=== PATIENT | female | born 1955 | race Caucasian/White ===

== ENCOUNTER → 2016-07-06 | Outpatient (CLI) | payer MEDICARE ==
[2016-07-06 17:40] LABS: ALBUMIN 3.9 g/dL (3.5-5.0); BILIRUBIN,TOTAL 0.4 mg/dL (0.2-1.3); URIC ACID 4.3 mg/dL (2.5-7.5)
== END ==
LOC: OD 16:01
PROVIDERS: ATTEND Nurse Practitioner Family
DX: B18.2 Chronic viral hepatitis C (principal); E11.9 Type 2 diabetes mellitus without complications
CPT/HCPCS: 36415; 80074; 80076; 83036; 84550; 85652

== ENCOUNTER → 2017-09-28 | Outpatient (CLI) | payer MEDICARE ==
--- NOTE | 2017-09-28 18:50 | EKG REPORT ---
SEVERITY:- NORMAL ECG - SINUS RHYTHM : Confirmed by: Richard Palacios MD 28-Sep-2017 18:50:07
== END ==
LOC: OD 16:49
PROVIDERS: ATTEND Physician Assistant
DX: G89.4 Chronic pain syndrome (principal); Z79.891 Long term (current) use of opiate analgesic
CPT/HCPCS: 93005; 36415; 93010; G0480; 80358

== ENCOUNTER 2017-11-04 21:12 | Emergency (ER) | payer MEDICARE ==
--- NOTE | 2017-11-04 21:50 | RADIOLOGY REPORT (SQ) ---
EXAM DESCRIPTION: CHEST 2 VIEWS COMPLETED DATE/TIME: 11/04/2017 9:38 pm REASON FOR STUDY: fall, rib pain COMPARISON: None. EXAM PARAMETERS: NUMBER OF VIEWS: two views TECHNIQUE: Digital Frontal and Lateral radiographic views of the chest acquired. RADIATION DOSE: NA LIMITATIONS: none FINDINGS: LUNGS AND PLEURA: Left lower lobe density. Probable left pleural effusion. Right lung re latively clear. Prominent interstitial markings. No pneumothorax. MEDIASTINUM AND HILAR STRUCTURES: No masses or contour abnormalities. HEART AND VASCULAR STRUCTURES: Cardiomegaly. BONES: Old left rib fractures. No definite acute findings. HARDWARE: Hardware in the left humerus. OTHER: No other significant finding. IMPRESSION: 1. LEFT LOWER LOBE DENSITY WHICH MAY BE DUE TO ATELECTASIS OR INFILTRATE. PROBABLE LEFT PLEURAL EFFU NAREN. 2. CARDIOMEGALY. PROMINENT INTERSTITIAL MARKINGS PROBABLY DUE TO CHRONIC SCARRING ALTHOUGH THERE MAY BE A COMPONENT OF MILD INTERSTITIAL EDEMA. 3. OLD LEFT RIB FRACTURES. NO DEFINITE ACUTE FINDINGS. TECHNICAL DOCUMENTATION: JOB ID: [id number] [employer]- All Rights Reserved Reading location - IP/workstation name: [email or web address]
[2017-11-04] MEDS ORDERED: LIDOCAINE 5% (700 MG) TRANSDERMAL ADH..PATCH TP ONE (22:30)
--- NOTE | 2017-11-04 22:33 | ER Document Report ---
ED General - General Chief Complaint: Rib Pain Stated Complaint: RIB PAIN Time Seen by Provider: 11/04/17 21:24 Notes: Patient is a 62-year-old female with a past medical history of ulcerative colitis as well as Sjogren's syndrome who presents with left lower rib pain as well as diffuse muscle aches. The patient reports that she had a fall 2012 days ago landing on her left ribs. She states that since that time she has had a throbbing, aching, constant pain to the area that have been overall tolerable until today. She states that she slept in a recliner all night and she when she woke up she was extremely stiff and sore everywhere but had much worse pain in her left lower rib space than she had previously. She notes that as a severe , stabbing pain to the affected area worsened by movement or coughing. She has not seen her general doctor regarding today's concerns. She states that she decided to come to the emergency department today to see if she had fractured her ribs from her previous fall. She states that this time she feels overall much better than she did earlier today. She denies any shortness of breath. She does take methadone for chronic pain. TRAVEL OUTSIDE OF THE [place] IN LAST 30 DAYS: No - Related Data Allergies/Adverse Reactions: No Known Allergies Allergy (Unverified 11/04/17 21:33) Past Medical History - General Information source: Patient - Social History Smoking Status: Former Smoker Chew tobacco use (# tins/day): No Frequency of alcohol use: Rare Drug Abuse: None Lives with: Alone Family History: Reviewed & Not Pertinent Patient has suicidal ideation: No Patient has homicidal ideation: No Endocrine Medical History: Reports: Hx Diabetes Mellitus Type 2 Renal/ Medical History: Denies: Hx Peritoneal Dialysis Past Surgical History: Reports: Hx Orthopedic Surgery Review of Systems - Review of Systems Notes: Constitutional: Negative for fever. HENT: Negative for sore throat. Eyes: Negative for visual changes. Cardiovascular: Negative for chest pain. Respiratory: Negative for shortness of breath. Gastrointestinal: Negative for abdominal pain, vomiting or diarrhea. Genitourinary: Negative for dysuria. Musculoskeletal: Positive for left lower rib pain Skin: Negative for rash. Neurological: Negative for headaches, weakness or numbness. 10 point ROS negative except as marked above and in HPI. Physical Exam - Vital signs Vitals: Temp Pulse Resp BP Pulse Ox 98.8 F 99 16 122/57 L 95 11/04/17 21:25 11/04/17 21:25 11/04/17 21:25 11/04/17 21:25 11/04/17 21:25 Interpretation: Normal Notes: PHYSICAL EXAMINATION: GENERAL: Well-appearing, well-nourished and in no acute distress. HEAD: Atraumatic, normocephalic. EYES: Pupils equal round and reactive to light, extraocular movements intact, sclera anicteric, conjunctiva are normal. ENT: nares patent, oropharynx clear without exudates. Moist mucous membranes. NECK: Normal range of motion, supple without lymphadenopathy LUNGS: Breath sounds clear to auscultation bilaterally and equal. No wheezes rales or rhonchi. HEART: Regular rate and rhythm without murmurs Chest wall: Pain on palpation of the left lower rib spaces ABDOMEN: Soft, nontender, normoactive bowel sounds. No guarding, no rebound. No masses appreciated. EXTREMITIES: Normal range of motion, no pitting or edema. No cyanosis. NEUROLOGICAL: No focal neurological deficits. Moves all extremities spontaneously and on command. PSYCH: Normal mood, normal affect. SKIN: Warm, Dry, normal turgor, ecchymosis over the left lower rib space Course - Re-evaluation Re-evalutation: 11/04/17 22:30 Patient presents after having a fall 12 days ago landing onto her left ribs likely sustaining multiple acute rib fractures at that time point but did not seek care. Patient states that she slept in a chair last night and woke up extremely stiff and sore everywhere joint which is what prompted her to come to the hospital today. On examination patient does have some bruising over the left lower ribs and focal tenderness to the affected area. These are noticed on x-ray as well as likely atelectatic changes to the affected area due to hypoventilation in the setting of rib fractures. The patient denies any additional acute concerns or complaints. The remainder examination is overall unremarkable. She is very pleasant, smiling, conversing with me at length. She is already on chronic pain medication from a pain clinic and is not asking for any additional pain control, wanted to confirm if she did have rib fractures the affected area. Chest x-ray does note chronic scarring changes, patient is not hypoxic, tachypneic, tachycardic. Given her borderline oxygen saturation further workup and hospitalization was discussed with the patient and she did decline stating she feels fine to manage this at home as she has been doing so for the past 2 weeks. She has been given incentive spirometry and instructed to use it at regular interval to try to prevent any progression of the atelectatic changes in her left lower lobe. At this time will discharge with return precautions and follow-up recommendations. Verbal discharge instructions given a the bedside and opportunity for questions given. Medication warnings reviewed. Patient is in agreement with this plan and has verbalized understanding of return precautions and the need for primary care follow-up in the next 24-72 hours. - Vital Signs Vital signs: Temp Pulse Resp BP Pulse Ox 98.0 F 90 18 106/56 L 92 11/04/17 23:40 11/04/17 23:40 11/04/17 22:37 11/04/17 23:40 11/04/17 23:40 - Diagnostic Test Radiology reviewed: Image reviewed, Reports reviewed Radiology results interpreted by me: 11/05/17 03:39 Chest x-ray: Atelectatic changes at the left lung base. Apparently old rib fractures to the left lower 2 ribs Discharge - Discharge Clinical Impression: Atelectasis Fall Qualifiers: Encounter type: initial encounter Qualified Code(s): W19.XXXA - Unspecified fall, initial encounter Left rib fracture Qualifiers: Encounter type: initial encounter Rib fracture type: multiple ribs Fracture type: closed Qualified Code(s): S22.42XA - Multiple fractures of ribs, left side , initial encounter for closed fracture Condition: Good Disposition: HOME, SELF-CARE Additional Instructions: Your chest wall pain is due to several rib fractures appear left-sided ribs. This pain can last for up to 6 weeks. It is very important that you continue to take purposeful deep breaths. For your pain: Continue to take ibuprofen 600 mg every 6 hours or Tylenol 1000 mg every 6 hours. Apply local lidocaine to the area per bottle instructions. There is a product sold [id number] called "Aspercreme with lidocaine" that you can use for this purpose. Please be sure to continue to take deep breaths using the incentive spirometer with which you were sent home to prevent acquiring a pneumonia. Please follow-up with her primary care doctor in the next 2-3 days. Return to the emergency department immediately if you develop worsening shortness of breath, increased pain, begin coughing blood, pass out, or have any other symptoms that are worrisome to you. Referrals: FRANCOIS DAVILA PA-C [Primary Care Provider] - Follow up in 3-5 days
[2017-11-05 00:20] VITALS: BP 106/56
== END 2017-11-05 00:29 | disposition home or self-care (01) ==
LOC: ER 21:12
DX: J98.11 Atelectasis (principal); S22.42XA Multiple fractures of ribs, left side, initial encounter for closed fracture; R07.9 Chest pain, unspecified; M79.1 Myalgia; W19.XXXA Unspecified fall, initial encounter; E11.9 Type 2 diabetes mellitus without complications
CPT/HCPCS: 71046; 99284

== ENCOUNTER 2019-01-04 01:24 | Emergency (ER) | payer OTHER, MEDICARE ==
[2019-01-04] MEDS ORDERED: HYDROMORPHONE HCL 2 MG TABLET PO ONE ×2 (04:06→07:32)
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
[2019-01-04] MEDS ORDERED: METHOCARBAMOL 500 MG TABLET PO ONE (07:32)
[2019-01-04 11:06] VITALS: BP 160/62
== END 2019-01-04 10:50 | disposition home or self-care (01) ==
LOC: ER 01:24
DX: S22.070A Wedge compression fracture of T9-T10 vertebra, initial encounter for closed fracture (principal); S32.019A Unspecified fracture of first lumbar vertebra, initial encounter for closed fracture; R51 Headache; M54.2 Cervicalgia; V44.5XXA Car driver injured in collision with heavy transport vehicle or bus in traffic accident, initial encounter; E11.9 Type 2 diabetes mellitus without complications; G89.29 Other chronic pain; Z79.891 Long term (current) use of opiate analgesic; Z79.899 Other long term (current) drug therapy
CPT/HCPCS: 70450; 72125; 72128; 72131; 82962; 99284

== ENCOUNTER 2019-01-04 11:25 | Inpatient (IN) | payer OTHER, MEDICARE ==
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
[2019-01-04] MEDS ORDERED: ACETAMINOPHEN 325 MG TABLET PO PRN (15:45)
[2019-01-04] MEDS ORDERED: IPRATROPIUM/ALBUTEROL 0.5-2.5 MG/3 ML AMPUL NEB PRN (15:45)
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
[2019-01-04] MEDS: DOCUSATE SODIUM 100 MG CAPSULE PO SCH (17:44)
[2019-01-04 18:15] LABS: URINE BARBITURATES SCREEN NEGATIVE; URINE BENZODIAZEPINES SCREEN NEGATIVE; URINE COCAINE SCREEN NEGATIVE; URINE MARIJUANA (THC) SCREEN NEGATIVE; URINE PHENCYCLIDINE SCREEN NEGATIVE
[2019-01-04 18:32] LABS: URINE AMPHETAMINES SCREEN UNCONFIRMED POSITIVE
[2019-01-04 18:33] LABS: URINE METHADONE SCREEN UNCONFIRMED POSITIVE
[2019-01-04 18:41] LABS: ABSOLUTE BASOPHILS # (AUTO) 0.1 10^3/uL (0.0-0.2); ABSOLUTE EOSINOPHILS # (AUTO) 0.1 10^3/uL (0.0-0.6); ABSOLUTE LYMPHOCYTES (AUTO) 1.8 10^3/uL (0.5-4.7); ABSOLUTE MONOCYTES (AUTO) 0.5 10^3/uL (0.1-1.4); BASOPHILS % (AUTO) 0.8 % (0-2); EOSINOPHILS % (AUTO) 1.5 % (0-6); HEMATOCRIT 38.5 % (36.0-47.0); HEMOGLOBIN 12.7 g/dL (12.0-15.5); LYMPHOCYTES % (AUTO) 24.2 % (13-45); MEAN CORPUSCULAR HEMOGLOBIN 26.3 pg (27.0-33.4); MEAN CORPUSCULAR HGB CONC 32.9 g/dL (32.0-36.0); MEAN CORPUSCULAR VOLUME 80 fl (80-97); PLATELET COUNT 144 10^3/uL (150-450); RED BLOOD COUNT 4.82 10^6/uL (3.72-5.28); RED CELL DISTRIBUTION WIDTH 16.8 % (11.5-14.0); SEGMENTED NEUTROPHILS % (AUTO) 66.5 % (42-78); TOTAL CELLS COUNTED % (AUTO) 100 %; WHITE BLOOD COUNT 7.5 10^3/uL (4.0-10.5)
[2019-01-04 19:06] LABS: ALKALINE PHOSPHATASE 140 U/L (38-126); ANION GAP 9 (5-19); ASPARTATE AMINO TRANSFERASE 97 U/L (14-36); BILIRUBIN,DIRECT 0.5 mg/dL (0.0-0.4); BILIRUBIN,TOTAL 1.2 mg/dL (0.2-1.3); BLOOD UREA NITROGEN 15 mg/dL (7-20); C-REACTIVE PROTEIN 37.7 mg/L (<10.0); CALCIUM 9.1 mg/dL (8.4-10.2); CARBON DIOXIDE 30 mmol/L (22-30); CHLORIDE 97 mmol/L (98-107); CREATINE KINASE 24 U/L (30-135); GLUCOSE 102 mg/dL (75-110); POTASSIUM 3.6 mmol/L (3.6-5.0); TOTAL PROTEIN 7.5 g/dL (6.3-8.2)
[2019-01-04 19:20] LABS: ERYTHROCYTE SEDIMENTATION RATE 52 mm/hr (0-30)
[2019-01-04] MEDS: ONDANSETRON HCL INJ/PF 4 MG/2 ML SDV IV PRN (20:09)
[2019-01-04] MEDS: METHADONE HCL 10 MG TABLET PO SCH (21:12)
[2019-01-04] MEDS: FAMOTIDINE 20 MG TABLET PO SCH (21:12)
[2019-01-04] MEDS: GABAPENTIN 400 MG CAPSULE PO SCH (21:12)
[2019-01-04] MEDS: HEPARIN SOD (PORCINE) 5,000 UNIT/ML 1 ML VIAL SUBCUT SCH (21:13)
[2019-01-04] MEDS: NADOLOL 40 MG TABLET PO SCH (21:13)
[2019-01-04] MEDS ORDERED: BACLOFEN 10 MG TABLET PO SCH (22:00)
[2019-01-05] MEDS: METHADONE HCL 10 MG TABLET PO SCH ×5 (01:45→23:14)
[2019-01-05] MEDS: OXYCODONE HCL IR 5 MG TABLET PO PRN (01:50)
[2019-01-05 05:08] LABS: ABSOLUTE BASOPHILS # (AUTO) 0.1 10^3/uL (0.0-0.2); ABSOLUTE EOSINOPHILS # (AUTO) 0.2 10^3/uL (0.0-0.6); ABSOLUTE LYMPHOCYTES (AUTO) 1.4 10^3/uL (0.5-4.7); ABSOLUTE MONOCYTES (AUTO) 0.4 10^3/uL (0.1-1.4); ABSOLUTE NEUT (AUTO) 4.8 10^3/uL (1.7-8.2); BASOPHILS % (AUTO) 0.8 % (0-2); EOSINOPHILS % (AUTO) 2.5 % (0-6); HEMATOCRIT 40.3 % (36.0-47.0); HEMOGLOBIN 13.2 g/dL (12.0-15.5); LYMPHOCYTES % (AUTO) 20.8 % (13-45); MEAN CORPUSCULAR HEMOGLOBIN 26.1 pg (27.0-33.4); MEAN CORPUSCULAR HGB CONC 32.8 g/dL (32.0-36.0); MEAN CORPUSCULAR VOLUME 80 fl (80-97); MONOCYTES % (AUTO) 5.9 % (3-13); PLATELET COUNT 143 10^3/uL (150-450); RED BLOOD COUNT 5.06 10^6/uL (3.72-5.28); TOTAL CELLS COUNTED % (AUTO) 100 %; WHITE BLOOD COUNT 6.8 10^3/uL (4.0-10.5)
[2019-01-05 05:23] LABS: ANION GAP 12 (5-19); BLOOD UREA NITROGEN 16 mg/dL (7-20); CALCIUM 8.9 mg/dL (8.4-10.2); CARBON DIOXIDE 29 mmol/L (22-30); CHLORIDE 96 mmol/L (98-107); GLUCOSE 95 mg/dL (75-110); POTASSIUM 3.9 mmol/L (3.6-5.0)
[2019-01-05] MEDS: HEPARIN SOD (PORCINE) 5,000 UNIT/ML 1 ML VIAL SUBCUT SCH ×3 (06:01→22:26)
[2019-01-05] MEDS ORDERED: HYDRALAZINE HCL INJ/PF 20 MG/1 ML SDV IV PRN (07:34)
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
[2019-01-05] MEDS: HYDROMORPHONE HCL INJ/PF 2 MG/ML AMPULE IV PRN (09:14)
[2019-01-05] MEDS: ONDANSETRON HCL INJ/PF 4 MG/2 ML SDV IV PRN (10:00)
[2019-01-05] MEDS: PREDNISONE 5 MG TABLET PO SCH ×3 (10:06→17:44)
[2019-01-05] MEDS: FAMOTIDINE 20 MG TABLET PO SCH ×2 (10:06→23:15)
[2019-01-05] MEDS: DOCUSATE SODIUM 100 MG CAPSULE PO SCH ×2 (10:06→18:03)
[2019-01-05] MEDS: NADOLOL 40 MG TABLET PO SCH ×2 (10:06→23:14)
[2019-01-05] MEDS: ESCITALOPRAM OXALATE 10 MG TABLET PO SCH (10:06)
[2019-01-05] MEDS: BACLOFEN 20 MG TABLET PO SCH ×2 (10:06→23:14)
[2019-01-05] MEDS ORDERED: LORAZEPAM INJ 2 MG/1 ML VIAL IV PRN (10:15)
[2019-01-05] MEDS: GABAPENTIN 400 MG CAPSULE PO SCH (23:15)
[2019-01-06] MEDS: HEPARIN SOD (PORCINE) 5,000 UNIT/ML 1 ML VIAL SUBCUT SCH ×3 (05:26→21:11)
[2019-01-06 05:28] LABS: INTERNATIONAL RATION (INR) 1.01; PROTHROMBIN TIME 13.3 SEC (11.4-15.4)
[2019-01-06 05:29] LABS: PARTIAL THROMBOPLASTIN TIME 39.6 SEC (23.5-35.8)
[2019-01-06] MEDS: METHADONE HCL 10 MG TABLET PO SCH ×4 (05:35→23:04)
[2019-01-06] MEDS: OXYCODONE HCL IR 5 MG TABLET PO PRN ×2 (05:37→23:04)
[2019-01-06 06:27] LABS: APPEARANCE,URINE SLIGHTLY-CLOUDY; BILIRUBIN,URINE NEGATIVE (NEGATIVE); COLOR,URINE AMBER; GLUCOSE, URINE NEGATIVE (NEGATIVE); KETONES,URINE 20 mg/dL (NEGATIVE); LEUKOCYTE ESTERASE,URINE NEGATIVE (NEGATIVE); NITRITE,URINE NEGATIVE (NEGATIVE); PROTEIN,URINE 30 mg/dL (NEGATIVE)
[2019-01-06] MEDS: HYDROMORPHONE HCL INJ/PF 2 MG/ML AMPULE IV PRN ×2 (06:43→21:13)
[2019-01-06] MEDS: FAMOTIDINE 20 MG TABLET PO SCH ×2 (09:43→21:12)
[2019-01-06] MEDS: PREDNISONE 5 MG TABLET PO SCH ×3 (09:43→17:39)
[2019-01-06] MEDS: ESCITALOPRAM OXALATE 10 MG TABLET PO SCH (09:43)
[2019-01-06] MEDS: BACLOFEN 20 MG TABLET PO SCH ×2 (09:43→21:13)
[2019-01-06] MEDS: NADOLOL 40 MG TABLET PO SCH ×2 (09:44→21:13)
[2019-01-06] MEDS: DOCUSATE SODIUM 100 MG CAPSULE PO SCH ×2 (09:44→17:35)
[2019-01-06] MEDS ORDERED: LORAZEPAM INJ 2 MG/1 ML VIAL IV PRN (10:28)
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
--- NOTE | 2019-01-06 16:59 | RADIOLOGY REPORT (SQ) ---
EXAM DESCRIPTION: MRI LUMBAR SPINE WITHOUT COMPLETED DATE/TIME: 01/06/2019 4:42 pm REASON FOR STUDY: verify compression fracture S22.080A WEDGE COMPRESSION FRACTURE OF T11-T12 VERTEB RA, INI COMPARISON: None. TECHNIQUE: Sagittal and Axial imaging includes T1, T2, STIR and gradient echo sequences. Coronal T2/ HASTE imaging. LIMITATIONS: None. FINDINGS: VISUALIZED UPPER ABDOMEN: Limited evaluation. No acute or suspicious findings suggested. SEGMENTATION: No transitional anatomy. The lowest well-developed disc space is labeled L5-S1. ALIGNMENT: Anatomic. VERTEBRAE: Superior endplate compression changes seen at T12 and L1 that are relatively acute. Older mild compression changes seen at T10 and T11. BONE MARROW: There is bone marrow edema in the superior aspect of T12 and L1 vertebral bodies. DISC SIGNAL: There is evidence of mild disc desiccation from L2-L5. POSTERIOR ELEMENTS: Generally intact. No pars defect evident. HARDWARE: None in the spine. CORD AND CONUS: Normal in size and signal intensity. Conus at the L1 level. SOFT TISSUES: No aortic aneurysm seen. No bulky retroperitoneal adenopathy or mass. No paraspinal mas s or fluid. L1-L2: No significant spinal stenosis or exit foraminal stenosis. L2-L3: No significant spinal stenosis or exit foraminal stenosis. L3-L4: No significant spinal stenosis or exit foraminal stenosis. L4-L5: No significant spinal stenosis or exit foraminal stenosis. L5-S1: No significant spinal stenosis or exit foraminal stenosis. LOWER THORACIC: Incompletely imaged. No stenosis seen. SACRUM: Visualized upper sacrum intact. OTHER: No other significant findings. IMPRESSION: Acute/ subacute superior endplate compression changes at T12 and L1. Older compression changes at T10 and T11 TECHNICAL DOCUMENTATION: JOB ID: [id number] [employer]- All Rights Reserved Reading location - IP/workstation name: [email or web address]
[2019-01-06] MEDS: GABAPENTIN 400 MG CAPSULE PO SCH (21:12)
[2019-01-07] MEDS: HEPARIN SOD (PORCINE) 5,000 UNIT/ML 1 ML VIAL SUBCUT SCH ×3 (05:35→21:35)
[2019-01-07] MEDS: METHADONE HCL 10 MG TABLET PO SCH ×4 (05:37→23:47)
[2019-01-07] MEDS ORDERED: DEXTROSE 40% GEL 15 GM TUBE X 2 PO PRN (09:00)
[2019-01-07] MEDS ORDERED: DEXTROSE 40% GEL 15 GM TUBE PO PRN (09:00)
[2019-01-07] MEDS ORDERED: DEXTROSE 50%-WATER SYRINGE 12.5 GM/25 ML DOSE IV PRN (09:00)
[2019-01-07] MEDS ORDERED: GLUCAGON,HUMAN RECOMB 1 MG INJ IM PRN (09:00)
[2019-01-07] MEDS ORDERED: DEXTROSE 50%-WATER SYRINGE 25 GM/50 ML DOSE IV PRN (09:00)
[2019-01-07] MEDS: FAMOTIDINE 20 MG TABLET PO SCH ×2 (09:19→21:40)
[2019-01-07] MEDS: ESCITALOPRAM OXALATE 10 MG TABLET PO SCH (09:19)
[2019-01-07] MEDS: BACLOFEN 20 MG TABLET PO SCH ×2 (09:19→21:40)
[2019-01-07] MEDS: PREDNISONE 5 MG TABLET PO SCH ×3 (09:19→17:23)
[2019-01-07] MEDS: DOCUSATE SODIUM 100 MG CAPSULE PO SCH ×2 (09:21→17:23)
[2019-01-07] MEDS: NADOLOL 40 MG TABLET PO SCH ×2 (09:30→21:40)
[2019-01-07] MEDS: HYDROMORPHONE HCL INJ/PF 2 MG/ML AMPULE IV PRN ×2 (09:30→23:48)
[2019-01-07] MEDS ORDERED: CEFAZOLIN INJ 1 GM VIAL ONE (11:01)
[2019-01-07] MEDS ORDERED: FENTANYL CITRATE INJ/PF 100 MCG/2 ML AMPUL ONE (11:08)
[2019-01-07] MEDS ORDERED: MIDAZOLAM 2 MG/2 ML INJ ONE (11:08)
[2019-01-07] MEDS ORDERED: PROPOFOL INJ 200 MG/20 ML VIAL IV ONE (11:09)
[2019-01-07] MEDS ORDERED: LIDOCAINE 2% INJ (20 MG/ML) 20 ML MDV ONE (11:09)
[2019-01-07] MEDS ORDERED: LIDOCAINE 1% INJ-PF (10 MG/ML) 30 ML SDV ONE ×2 (11:14→12:19)
[2019-01-07] MEDS ORDERED: OXYCODONE-ACETAMINOPHEN 5-325 MG TABLET PO PRN ×2 (12:07)
[2019-01-07] MEDS ORDERED: MORPHINE SULFATE 10 MG/ML INJ IV PRN (12:07)
[2019-01-07] MEDS ORDERED: FENTANYL CITRATE INJ/PF 100 MCG/2 ML AMPUL IV PRN ×3 (12:07)
[2019-01-07] MEDS ORDERED: PROMETHAZINE HCL INJ 25 MG/1 ML VIAL IV PRN (12:07)
[2019-01-07] MEDS ORDERED: DIPHENHYDRAMINE HCL 50 MG/ML VIAL IV PRN (12:07)
[2019-01-07] MEDS ORDERED: MEPERIDINE HCL/PF INJ 25 MG/1 ML DISP.SYRIN IV PRN (12:07)
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
[2019-01-07] MEDS: INSULIN REG, HUMAN 100 UNIT/ML 3 ML VIAL (PYX) SUBCUT SCH ×3 (13:51→21:37)
--- NOTE | 2019-01-07 14:03 | RADIOLOGY REPORT (SQ) ---
EXAM DESCRIPTION: L SPINE 2 VIEWS COMPLETED DATE/TIME: 01/07/2019 1:51 pm REASON FOR STUDY: KYPHOPLASTY ASST WITH FLUORO IN OR S22.080A WEDGE COMPRESSION FRACTURE OF T11-T12 VERTEBRA, INI COMPARISON: None. FLUOROSCOPY TIME: 3.4 minutes Spot images saved to PACS. TECHNIQUE: Intra-operative images acquired during surgical procedure to evaluate progress. NUMBER OF IMAGES: Greater than 25 LIMITATIONS: None. FINDINGS: Fluoroscopy was provided for intraoperative procedure. Please refer to the operative repo rt for further discussion. IMPRESSION: IMAGE(S) OBTAINED DURING PROCEDURE. COMMENT: Quality ID [id number]: Final reports for procedures using fluoroscopy that document radiation exp osure indices, or exposure time and number of fluorographic images (if radiation exposure indices are not available) Please consult full operative report of the attending physician for description of the procedure. TECHNICAL DOCUMENTATION: JOB ID: [id number] [email or web address]- All Rights Reserved Reading location - IP/workstation name: [email or web address]
--- NOTE | 2019-01-07 14:03 | RADIOLOGY REPORT (SQ) ---
EXAM DESCRIPTION: NO CHG FLUORO COMPLETE DATE/TIME: 01/07/2019 1:51 pm REASON FOR STUDY: KYPHOPLASTY ASST WITH FLUORO IN OR S22.080A WEDGE COMPRESSION FRACTURE OF T11-T12 VERTEBRA, INI FINDINGS: Please see combined report for performance of procedure and radiologic supervision and int erpretation. IMPRESSION: Please see combined report for performance of procedure and radiologic supervision and i nterpretation. Reading location - IP/workstation name: [email or web address]
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
[2019-01-07] MEDS: OXYCODONE HCL IR 5 MG TABLET PO PRN (18:46)
[2019-01-07] MEDS: GABAPENTIN 400 MG CAPSULE PO SCH (21:40)
[2019-01-08] MEDS: OXYCODONE HCL IR 5 MG TABLET PO PRN (02:25)
[2019-01-08] MEDS: METHADONE HCL 10 MG TABLET PO SCH ×4 (06:09→23:00)
[2019-01-08] MEDS: HEPARIN SOD (PORCINE) 5,000 UNIT/ML 1 ML VIAL SUBCUT SCH ×3 (06:10→22:55)
[2019-01-08] MEDS: INSULIN REG, HUMAN 100 UNIT/ML 3 ML VIAL (PYX) SUBCUT SCH ×4 (08:19→22:56)
[2019-01-08] MEDS: HYDROMORPHONE HCL INJ/PF 2 MG/ML AMPULE IV PRN ×2 (08:47→20:18)
[2019-01-08 09:55] LABS: ALBUMIN 3.6 g/dL (3.5-5.0); ALKALINE PHOSPHATASE 94 U/L (38-126); ASPARTATE AMINO TRANSFERASE 24 U/L (14-36); BILIRUBIN,DIRECT 0.2 mg/dL (0.0-0.4); BILIRUBIN,TOTAL 0.4 mg/dL (0.2-1.3); TOTAL PROTEIN 6.9 g/dL (6.3-8.2)
[2019-01-08] MEDS ORDERED: (PENDING PHARMACY ID) (Dextroamphetamine/Amphetamine [Adderall 30 Mg Tablet] 30 MG) PO SCH (10:00)
[2019-01-08] MEDS: DOCUSATE SODIUM 100 MG CAPSULE PO SCH ×2 (10:31→17:44)
[2019-01-08] MEDS: FAMOTIDINE 20 MG TABLET PO SCH ×2 (10:32→23:00)
[2019-01-08] MEDS: BACLOFEN 20 MG TABLET PO SCH ×2 (10:32→23:00)
[2019-01-08] MEDS: PREDNISONE 5 MG TABLET PO SCH ×3 (10:32→17:44)
[2019-01-08] MEDS: ESCITALOPRAM OXALATE 10 MG TABLET PO SCH (10:32)
[2019-01-08] MEDS: NADOLOL 40 MG TABLET PO SCH ×2 (10:32→23:00)
[2019-01-08] MEDS: VALACYCLOVIR HCL 500 MG TABLET PO SCH ×2 (10:32→17:44)
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
[2019-01-08 15:19] LABS: ANION GAP 10 (5-19); BLOOD UREA NITROGEN 30 mg/dL (7-20); CARBON DIOXIDE 31 mmol/L (22-30); CHLORIDE 98 mmol/L (98-107); GLUCOSE 176 mg/dL (75-110); POTASSIUM 4.5 mmol/L (3.6-5.0)
[2019-01-08 15:33] LABS: ABSOLUTE BASOPHILS # (AUTO) 0.1 10^3/uL (0.0-0.2); ABSOLUTE EOSINOPHILS # (AUTO) 0.1 10^3/uL (0.0-0.6); ABSOLUTE LYMPHOCYTES (AUTO) 2.3 10^3/uL (0.5-4.7); ABSOLUTE MONOCYTES (AUTO) 0.6 10^3/uL (0.1-1.4); ABSOLUTE NEUT (AUTO) 4.8 10^3/uL (1.7-8.2); BASOPHILS % (AUTO) 0.8 % (0-2); HEMATOCRIT 35.6 % (36.0-47.0); HEMOGLOBIN 11.5 g/dL (12.0-15.5); LYMPHOCYTES % (AUTO) 29.1 % (13-45); MEAN CORPUSCULAR HEMOGLOBIN 26.2 pg (27.0-33.4); MEAN CORPUSCULAR HGB CONC 32.4 g/dL (32.0-36.0); MEAN CORPUSCULAR VOLUME 81 fl (80-97); MONOCYTES % (AUTO) 7.7 % (3-13); PLATELET COUNT 156 10^3/uL (150-450); RED CELL DISTRIBUTION WIDTH 16.6 % (11.5-14.0); SEGMENTED NEUTROPHILS % (AUTO) 61.4 % (42-78); TOTAL CELLS COUNTED % (AUTO) 100 %; WHITE BLOOD COUNT 7.8 10^3/uL (4.0-10.5)
[2019-01-08] MEDS: GABAPENTIN 400 MG CAPSULE PO SCH (23:00)
[2019-01-09] MEDS: HEPARIN SOD (PORCINE) 5,000 UNIT/ML 1 ML VIAL SUBCUT SCH ×3 (05:56→21:10)
[2019-01-09] MEDS: METHADONE HCL 10 MG TABLET PO SCH ×4 (05:57→23:14)
[2019-01-09] MEDS: HYDROMORPHONE HCL INJ/PF 2 MG/ML AMPULE IV PRN ×2 (08:44→18:09)
[2019-01-09] MEDS: VALACYCLOVIR HCL 500 MG TABLET PO SCH ×2 (09:40→17:57)
[2019-01-09] MEDS: NADOLOL 40 MG TABLET PO SCH ×2 (09:40→21:05)
[2019-01-09] MEDS: FAMOTIDINE 20 MG TABLET PO SCH ×2 (09:41→21:05)
[2019-01-09] MEDS: PREDNISONE 5 MG TABLET PO SCH ×3 (09:41→17:57)
[2019-01-09] MEDS: BACLOFEN 20 MG TABLET PO SCH ×2 (09:41→21:05)
[2019-01-09] MEDS: ESCITALOPRAM OXALATE 10 MG TABLET PO SCH (09:42)
[2019-01-09] MEDS: DOCUSATE SODIUM 100 MG CAPSULE PO SCH ×2 (09:44→17:57)
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
[2019-01-09] MEDS: INSULIN REG, HUMAN 100 UNIT/ML 3 ML VIAL (PYX) SUBCUT SCH ×3 (13:25→21:10)
[2019-01-09] MEDS: GABAPENTIN 400 MG CAPSULE PO SCH (21:04)
[2019-01-09] MEDS: OXYCODONE HCL IR 5 MG TABLET PO PRN (21:08)
[2019-01-10] MEDS: HYDROMORPHONE HCL INJ/PF 2 MG/ML AMPULE IV PRN ×3 (00:08→13:03)
[2019-01-10] MEDS: HEPARIN SOD (PORCINE) 5,000 UNIT/ML 1 ML VIAL SUBCUT SCH ×2 (05:04→13:12)
[2019-01-10] MEDS: METHADONE HCL 10 MG TABLET PO SCH ×2 (05:05→11:39)
[2019-01-10 06:42] LABS: ABSOLUTE BASOPHILS # (AUTO) 0.1 10^3/uL (0.0-0.2); ABSOLUTE EOSINOPHILS # (AUTO) 0.1 10^3/uL (0.0-0.6); ABSOLUTE LYMPHOCYTES (AUTO) 2.9 10^3/uL (0.5-4.7); ABSOLUTE MONOCYTES (AUTO) 0.8 10^3/uL (0.1-1.4); ABSOLUTE NEUT (AUTO) 5.6 10^3/uL (1.7-8.2); BASOPHILS % (AUTO) 0.7 % (0-2); HEMATOCRIT 38.8 % (36.0-47.0); HEMOGLOBIN 12.6 g/dL (12.0-15.5); LYMPHOCYTES % (AUTO) 30.6 % (13-45); MEAN CORPUSCULAR HEMOGLOBIN 26.2 pg (27.0-33.4); MEAN CORPUSCULAR HGB CONC 32.5 g/dL (32.0-36.0); MEAN CORPUSCULAR VOLUME 81 fl (80-97); MONOCYTES % (AUTO) 8.8 % (3-13); PLATELET COUNT 226 10^3/uL (150-450); RED BLOOD COUNT 4.81 10^6/uL (3.72-5.28); RED CELL DISTRIBUTION WIDTH 17.1 % (11.5-14.0); SEGMENTED NEUTROPHILS % (AUTO) 58.9 % (42-78); TOTAL CELLS COUNTED % (AUTO) 100 %; WHITE BLOOD COUNT 9.5 10^3/uL (4.0-10.5)
[2019-01-10 06:54] LABS: ALBUMIN 3.8 g/dL (3.5-5.0); ALKALINE PHOSPHATASE 102 U/L (38-126); ANION GAP 10 (5-19); ASPARTATE AMINO TRANSFERASE 24 U/L (14-36); BILIRUBIN,DIRECT 0.3 mg/dL (0.0-0.4); BILIRUBIN,TOTAL 0.4 mg/dL (0.2-1.3); BLOOD UREA NITROGEN 27 mg/dL (7-20); CALCIUM 9.5 mg/dL (8.4-10.2); CARBON DIOXIDE 28 mmol/L (22-30); CHLORIDE 100 mmol/L (98-107); GLUCOSE 174 mg/dL (75-110); POTASSIUM 4.3 mmol/L (3.6-5.0); TOTAL PROTEIN 7.2 g/dL (6.3-8.2)
[2019-01-10] MEDS: INSULIN REG, HUMAN 100 UNIT/ML 3 ML VIAL (PYX) SUBCUT SCH ×2 (09:46→12:01)
[2019-01-10] MEDS: BACLOFEN 20 MG TABLET PO SCH (09:50)
[2019-01-10] MEDS: NADOLOL 40 MG TABLET PO SCH (09:50)
[2019-01-10] MEDS: DOCUSATE SODIUM 100 MG CAPSULE PO SCH (09:50)
[2019-01-10] MEDS: FAMOTIDINE 20 MG TABLET PO SCH (09:54)
[2019-01-10] MEDS: ESCITALOPRAM OXALATE 10 MG TABLET PO SCH (09:54)
[2019-01-10] MEDS: PREDNISONE 5 MG TABLET PO SCH ×2 (09:54→13:12)
[2019-01-10] MEDS: VALACYCLOVIR HCL 500 MG TABLET PO SCH (09:54)
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
[2019-01-10 13:11] VITALS: BP 133/50
== END 2019-01-10 14:58 | disposition home or self-care (01) | DRG 516 ==
LOC: ER 11:25 → EH 14:44 → INTOOBSV 14:44 → 4S 17:25 → OBSVTOIN 01-07 17:26
PROVIDERS: ADMIT Family Medicine; ATTEND Family Medicine
PROC: 0QU03JZ Supplement Lumbar Vertebra with Synthetic Substitute, Percutaneous Approach (ICD-10-PCS; 2019-01-07)
PROC: 0PS43ZZ Reposition Thoracic Vertebra, Percutaneous Approach (ICD-10-PCS; 2019-01-07)
PROC: 0PU43JZ Supplement Thoracic Vertebra with Synthetic Substitute, Percutaneous Approach (ICD-10-PCS; 2019-01-07)
PROC: 0QS03ZZ Reposition Lumbar Vertebra, Percutaneous Approach (ICD-10-PCS; principal; 2019-01-07 12:30)
DX: S32.010A Wedge compression fracture of first lumbar vertebra, initial encounter for closed fracture (principal); S22.070A Wedge compression fracture of T9-T10 vertebra, initial encounter for closed fracture; M35.00 Sjogren syndrome, unspecified; G89.29 Other chronic pain; E11.9 Type 2 diabetes mellitus without complications; V43.52XA Car driver injured in collision with other type car in traffic accident, initial encounter; F90.9 Attention-deficit hyperactivity disorder, unspecified type; Z87.891 Personal history of nicotine dependence
CPT/HCPCS: 01935; 36415; 72100; 72148; 80048; 80053; 80307; 81001; 82550; 82962; 83735; 84484; 85025; 85610; 85652; 85730; 86140; 99284; C1713; G0378; J0360; J0690; J1170; J1644; J2060; J2250; J2405; J2704; J3010; J3490; J7512

== ENCOUNTER 2019-10-17 11:31 | Emergency (ER) | payer MEDICARE, OTHER ==
[2019-10-17] MEDS ORDERED: ACETAMINOPHEN 325 MG TABLET PO ONE (12:29)
--- NOTE | 2019-10-17 12:33 | ER Document Report ---
ED Fall - General Chief Complaint: Fall Stated Complaint: FALL/FACIAL PAIN Time Seen by Provider: 10/17/19 12:06 Primary Care Provider: CLARA ELIZABETH DO [ACTIVE STAFF] - Follow up in 3-5 days Notes: Patient is a 64-year-old female who presents the emergency department after a fall. Patient states that the fall happened last night. She lives at [place] [id number] and was found in urine and feces. Patient states that she has history of colitis, which is why she was in stool. Patient does not quite remember exactly what happened, but states that she feels like she was at the sink and ended up falling. Patient is under pain management and currently takes oxycodone and methadone for her chronic pain. She states that she has had some urinary frequency lately. TRAVEL OUTSIDE OF THE [place] IN LAST 30 DAYS: No - Related data Allergies/Adverse Reactions: No Known Allergies Allergy (Verified 10/17/19 12:35) Past Medical History - Social History Smoking Status: Never Smoker Chew tobacco use (# tins/day): No Frequency of alcohol use: None Drug Abuse: None Family History: Reviewed & Not Pertinent Patient has homicidal ideation: No Endocrine Medical History: Reports: Hx Diabetes Mellitus Type 2 Renal/ Medical History: Denies: Hx Peritoneal Dialysis GI Medical History: Reports: Hx Ulcerative Colitis Past Surgical History: Reports: Hx Orthopedic Surgery - left leg Review of Systems - Review of Systems Notes: REVIEW OF SYSTEMS: CONSTITUTIONAL : Denies recent illness. Denies recent unintentional weight loss. Denies fever, chills, or sweats. EENT: Denies, ear, throat, or mouth pain, discharge, or symptoms. Denies nasal or sinus congestion. See HPI. CARDIOVASCULAR: Denies chest pain. RESPIRATORY: Denies shortness of breath, cough, congestion, difficulty breathing, or wheezing. GASTROINTESTINAL: Denies nausea, vomiting, and diarrhea. Denies abdominal pain. Denies constipation. GENITOURINARY: Denies difficulty urinating, burning, blood in urine, urgency or frequency. MUSCULOSKELETAL: See HPI. SKIN: Denies rash, itchiness, or lesions HEMATOLOGIC : Denies easy bruising or bleeding. LYMPHATIC: Denies swollen, painful, enlarged glands. NEUROLOGICAL: Denies no numbness or tingling denies weakness. Denies headache. Denies alteration in speech. See HPI. PSYCHIATRIC: Denies stress, anxiety, alteration in sleep patterns, or depression. All other systems reviewed and negative. Physical Exam - Vital signs Vitals: Temp 98.1 F 10/17/19 11:34 - Notes Notes: PHYSICAL EXAMINATION: GENERAL: Appears well, healthy, well-nourished, no acute distress. HEAD: Normocephalic, ecchymosis noted to right orbit. Ecchymosis noted to right posterior head. EYES: PERRLA, conjunctiva normal, all extraocular movements intact, sclera nonicteric ENT: Moist mucous membranes. NECK: Supple, no noticeable swelling, redness, rash. Normal range of motion. LUNGS: Equal breath sounds bilaterally and clear to auscultation. No wheezes rales or rhonchi. CARDIOVASCULAR: S1-S2, regular rate, regular rhythm. Radial pulses 2+, normal. ABDOMEN: Normoactive bowel sounds. Soft, nontender, no guarding, no rebound tenderness, and no masses palpated. EXTREMITIES: Normal strength and range of motion, no pitting or edema. No cyanosis. NEUROLOGICAL: Moves all extremities upon command. Strength 5/5 in all extremities except right upper extremity. Patient unable to abduct right arm at shoulder. PSYCH: Normal mood, normal affect. SKIN: Warm, dry. No rash, lesions, ulcerations noted. Normal skin turgor. Course - Re-evaluation Re-evalutation: 10/17/19 14:[address] Elizabeth, the orthopedic surgeon. He would like a CT of the upper extremity. Chemistries are unremarkable. Hematology shows a slight leukocytosis of 10,700. Patient is anemic with a hemoglobin of 10.0 and 30.4. Patient is chronically anemic as compared to her previous visits. Patient sandee es any melena stools. 10/17/19 16:08 Forearm x-ray is unremarkable. CT of the patient's upper extremity does not show a dislocation. Patient has 2+ pulses. She will be placed in a sling and she will follow-up with orthopedics in regards to this visit. Patient is in agreement with this plan. We will send her home with some nausea medication. Waiting on urinalysis. Attempted to get patient up out of bed with 2 energy infrastructure engineer and myself. She was not able to hold herself up to get out of bed. Patient lives alone at a hotel. 10/17/19 18:23 Patient's urinalysis is unremarkable. Due to the patient having so much pain, I called Dr. Jett, the hospitalist. He reviewed the patient's labs. At this t stephanie, the patient does not meet medical criteria for admission. 10/17/19 18:50 I had a very lengthy conversation with the patient in regards to her not meeting admission and that it is important for Dr. Elizabeth to take his time to evaluate her fracture. We will give her Zofran and a dose of her pain medication. Patient will be discharged home. - Vital Signs Vital signs: Temp Pulse Resp BP Pulse Ox 98.2 F 84 16 146/57 H 94 10/17/19 19:56 10/17/19 19:56 10/17/19 19:56 10/17/19 19:56 10/17/19 19:56 - Laboratory Result Diagrams: 10/17/19 12:05 10/17/19 12:05 Laboratory results interpreted by me: 10/17/19 10/17/19 10/17/19 12:05 12:05 16:50 WBC 10.7 H RBC 3.60 L Hgb 10.0 L Hct 30.4 L RDW 15.2 H Carbon Dioxide 31 H Glucose 156 H AST 64 H Urine Ketones TRACE H Ur Leukocyte Esterase TRACE H Discharge - Discharge Clinical Impression: Fall Qualifiers: Encounter type: initial encounter Qualified Code(s): W19.XXXA - Unspecified fall, initial encounter Humerus fracture Qualifiers: Encounter type: initial encounter Humerus Location: surgical neck Fracture type: closed Fracture morphology: 2-part Fracture alignment: displaced Laterality: right Qualified Code(s): S42.221A - 2-part displaced fracture of surgical neck of right humerus, initial encounter for closed fracture Condition: Stable Disposition: HOME, SELF-CARE Additional Instructions: You were seen today in the emergency department for a fall. Your head and neck CT scans are normal. You have a fracture of your humerus bone. Please follow- up with orthopedics in regards to this visit. Please let pain management know that you were here in the emergency department and received a dose of your oxycodone. Take your pain medication as prescribed. Wear your sling. You are being sent home with nausea medication. Take this as needed for nausea. Prescriptions: Ondansetron [Zofran Odt 4 mg Tablet] 1 - 2 tab PO Q4H PRN #30 tab.rapdis PRN Reason: For Nausea/Vomiting Referrals: CLARA ELIZABETH DO [ACTIVE STAFF] - Follow up in 3-5 days
[2019-10-17 12:45] LABS: ABSOLUTE BASOPHILS # (AUTO) 0.1 10^3/uL (0.0-0.2); ABSOLUTE EOSINOPHILS # (AUTO) 0.2 10^3/uL (0.0-0.6); ABSOLUTE LYMPHOCYTES (AUTO) 1.7 10^3/uL (0.5-4.7); ABSOLUTE MONOCYTES (AUTO) 0.8 10^3/uL (0.1-1.4); ABSOLUTE NEUT (AUTO) 7.8 10^3/uL (1.7-8.2); BASOPHILS % (AUTO) 0.9 % (0-2); EOSINOPHILS % (AUTO) 1.9 % (0-6); HEMATOCRIT 30.4 % (36.0-47.0); LYMPHOCYTES % (AUTO) 15.7 % (13-45); MEAN CORPUSCULAR HEMOGLOBIN 27.7 pg (27.0-33.4); MEAN CORPUSCULAR HGB CONC 32.8 g/dL (32.0-36.0); MEAN CORPUSCULAR VOLUME 85 fl (80-97); PLATELET COUNT 213 10^3/uL (150-450); RED CELL DISTRIBUTION WIDTH 15.2 % (11.5-14.0); SEGMENTED NEUTROPHILS % (AUTO) 73.5 % (42-78); TOTAL CELLS COUNTED % (AUTO) 100 %; WHITE BLOOD COUNT 10.7 10^3/uL (4.0-10.5)
[2019-10-17 12:59] LABS: ALBUMIN 3.8 g/dL (3.5-5.0); ALKALINE PHOSPHATASE 85 U/L (38-126); ANION GAP 8 (5-19); ASPARTATE AMINO TRANSFERASE 64 U/L (14-36); BILIRUBIN,DIRECT 0.1 mg/dL (0.0-0.4); BLOOD UREA NITROGEN 20 mg/dL (7-20); CALCIUM 9.2 mg/dL (8.4-10.2); CARBON DIOXIDE 31 mmol/L (22-30); CHLORIDE 99 mmol/L (98-107); CREATINE KINASE 116 U/L (30-135); GLUCOSE 156 mg/dL (75-110); POTASSIUM 4.4 mmol/L (3.6-5.0); TOTAL PROTEIN 7.2 g/dL (6.3-8.2)
--- NOTE | 2019-10-17 13:34 | RADIOLOGY REPORT (SQ) ---
EXAM DESCRIPTION: SHOULDER BILAT 2 OR MORE VIEWS IMAGES COMPLETED DATE/TIME: 10/17/2019 1:17 pm REASON FOR STUDY: fall; pain COMPARISON: None. NUMBER OF VIEWS: Five views. TECHNIQUE: AP and scapular Y-views of the right shoulder and AP internally rotated, AP externally ro tated, and scapular Y-views of the left shoulder were obtained. LIMITATIONS: None. FINDINGS: RIGHT SHOULDER MINERALIZATION: Osteopenia. BONES: Acute displaced fracture through the surgical neck of the humerus ; the distal fragment is dis placed medially and the humeral head is rotated within the glenoid. JOINTS: Osteoarthrosis of the acromioclavicular joint. VISUALIZED LUNGS AND RIBS: No pneumothorax or rib fracture. SOFT TISSUES: No radiopaque foreign body. OTHER: No other finding. LEFT SHOULDER MINERALIZATION: Osteopenia. BONES: Status post ORIF of a proximal humeral fracture. The hardware is intact. There no acute fra cture. JOINTS: Osteoarthrosis of the acromioclavicular joint. There is no dislocation. VISUALIZED LUNGS AND RIBS: Chronic fractures of the 5th, 6th, 7th and 8th ribs. SOFT TISSUES: No radiopaque foreign body. OTHER: No other finding. IMPRESSION: 1. Acute displaced fracture through the surgical neck of the right humerus. 2. Status post ORIF of a proximal left humeral fracture. The hardware is intact and there is no acu te fracture. TECHNICAL DOCUMENTATION: JOB ID: [id number] 2010 [email or web address]- All Rights Reserved Reading location - IP/workstation name: [email or web address]
--- NOTE | 2019-10-17 13:38 | RADIOLOGY REPORT (SQ) ---
EXAM DESCRIPTION: CT HEAD WITHOUT IMAGES COMPLETED DATE/TIME: 10/17/2019 1:22 pm REASON FOR STUDY: fall; please eval facial bones too COMPARISON: CT of the head without contrast from 01/04/2019. TECHNIQUE: Axial images acquired through the brain without intravenous contrast. Images reviewed wi th bone, brain and subdural windows. Additional sagittal and coronal reconstructions were generated. Images stored on PACS. All CT scanners at this facility use dose modulation, iterative reconstruction, and/or weight based d osing when appropriate to reduce radiation dose to as low as reasonably achievable (ALARA). [facility]: Dose Right [facility]: CareDose [facility]: Dose Right [facility]: Teradose 4D [facility]: [employer] RADIATION DOSE: CT Rad equipment meets quality standard of care and radiation dose reduction techniq ues were employed. CTDIvol: 23.1 mGy. DLP: 476 mGy-cm. LIMITATIONS: None. FINDINGS: There is no acute intracranial hemorrhage, vascular territorial infarct, extra-axial fluid collection, mass effect or midline shift. The lindquist-white matter differentiation is preserved. There is no effacement of the cerebral sulci or basal subarachnoid cisterns. The caliber of the ventricle s is concordant with the degree of sulcation. There right-sided periorbital/supraorbital and left-sided parietal extracranial hematomas. There is no associated fracture. The orbits and globes are intact. The paranasal sinuses are clear. IMPRESSION: 1. Right-sided periorbital/supraorbital and left-sided parietal extracranial hematomas. 2. No acute intracranial abnormality or calvarial fracture. EVIDENCE OF ACUTE STROKE: NO. COMMENT: Quality ID # [id number]: Final reports with documentation of one or more dose reduction techniques (e.g., Automated exposure control, adjustment of the mA and/or kV according to patient size, use of iterative reconstruction technique) TECHNICAL DOCUMENTATION: JOB ID: [id number] 2010 [employer]- All Rights Reserved Reading location - IP/workstation name: [email or web address]
--- NOTE | 2019-10-17 13:46 | RADIOLOGY REPORT (SQ) ---
EXAM DESCRIPTION: CT CERVICAL SPINE WITHOUT IMAGES COMPLETED DATE/TIME: 10/17/2019 1:22 pm REASON FOR STUDY: fall COMPARISON: CT of the cervical spine from 01/04/2019. TECHNIQUE: Axial images acquired through the cervical spine without intravenous contrast. Images re viewed with lung, soft tissue and bone windows. Reconstructed coronal and sagittal MPR images review ed. Images stored on PACS. All CT scanners at this facility use dose modulation, iterative reconstruction, and/or weight based d osing when appropriate to reduce radiation dose to as low as reasonably achievable (ALARA). [facility]: Dose Right [facility]: CareDose [facility]: Dose Right [facility]: Teradose 4D [facility]: [employer] RADIATION DOSE: CT Rad equipment meets quality standard of care and radiation dose reduction techniq ues were employed. CTDIvol: 28.3 mGy. DLP: 748 mGy-cm. LIMITATIONS: None. FINDINGS: ALIGNMENT: Reversal of the normal lordotic curvature of the cervical spine with grade 1 an terolisthesis of C2 relative to C3. There is no atlantoaxial or craniocervical dissociation. MINERALIZATION: Normal. VERTEBRAL BODIES: The cervical vertebral body heights are preserved. There is no fracture. DISCS: The C2-C3, C3-C4, C5-C6 and C6-C7 intervertebral discs are narrowed and there is associated en dplate irregularity and osteophyte formation ; in addition at C5-C6 there is mild vacuum disc phenome na. FACETS, LATERAL MASSES, POSTERIOR ELEMENTS: There are varying degrees of mild to moderate osteophytic foraminal stenosis from C3-C4 to C6-C7 due to a combination of facet joint arthropathy and uncoverte bral hypertrophy. HARDWARE: None in the spine. VISUALIZED RIBS: No fractures. LUNG APICES AND SOFT TISSUES: Mild diffuse thickening of the interstitial septa. OTHER: No other finding. IMPRESSION: No acute fracture or malalignment of the cervical spine. TECHNICAL DOCUMENTATION: JOB ID: [id number] Quality ID # [id number]: Final reports with documentation of one or more dose reduction techniques (e.g., Au tomated exposure control, adjustment of the mA and/or kV according to patient size, use of iterative reconstruction technique) 2010 [employer]- All Rights Reserved Reading location - IP/workstation name: [email or web address]
[2019-10-17] MEDS ORDERED: HYDROMORPHONE HCL INJ/PF 2 MG/ML AMPULE IV ONE (14:14)
[2019-10-17] MEDS ORDERED: NORMAL SALINE 1000 ML 1,000 ML IV ONE (14:19)
--- NOTE | 2019-10-17 14:48 | RADIOLOGY REPORT (SQ) ---
EXAM DESCRIPTION: FOREARM RIGHT IMAGES COMPLETED DATE/TIME: 10/17/2019 2:32 pm REASON FOR STUDY: forearm pain COMPARISON: None. NUMBER OF VIEWS: Two views. TECHNIQUE: Two radiographic images acquired of the right forearm, including elbow and wrist in at le ast one projection. LIMITATIONS: None. FINDINGS: MINERALIZATION: Osteopenia. BONES: No acute fracture, osseous lesion or periosteal reaction. SOFT TISSUES: No soft tissue swelling or radiopaque foreign body. OTHER: No other finding. IMPRESSION: No acute osseous abnormality of the right forearm. TECHNICAL DOCUMENTATION: JOB ID: [id number] 2010 [employer]- All Rights Reserved Reading location - IP/workstation name: [email or web address]
--- NOTE | 2019-10-17 15:54 | RADIOLOGY REPORT (SQ) ---
EXAM DESCRIPTION: CT RT UPPER EXTREMITY WITHOUT IMAGES COMPLETED DATE/TIME: 10/17/2019 2:59 pm REASON FOR STUDY: eval dislocation? COMPARISON: AP and scapular Y-views of the right shoulder from 10/17/2019. TECHNIQUE: Axial imaging performed through the right shoulder with reformatted oblique coronal and o blique sagittal imaging windowed for bone and soft tissues. All CT scanners at this facility use dose modulation, iterative reconstruction, and/or weight based d osing when appropriate to reduce radiation dose to as low as reasonably achievable (ALARA). [facility]: Dose Right [facility]: CareDose [facility]: Dose Right [facility]: Teradose 4D [facility]: FitOrbit RADIATION DOSE: CT Rad equipment meets quality standard of care and radiation dose reduction techniq ues were employed. CTDIvol: 12.4 mGy. DLP: 295 mGy-cm. LIMITATIONS: None. FINDINGS: There is an acute, comminuted and foreshortened fracture of the proximal right humerus (th rough the surgical neck) that involves the greater and lesser tubercles ; the distal fragment of the humerus is displaced anteriorly and medially with respect to the proximal fragment. The humeral head subluxed within the glenoid; there is no dislocation. The right clavicle and scapula are intact. T here is osteoarthrosis of the acromioclavicular joint. IMPRESSION: Acute, comminuted and foreshortened fracture of the proximal right humerus (through the surgical neck) that involves the greater and lesser tubercles ; the distal fragment of the humerus is displaced anteriorly and medially with respect to the proximal fragment. There is no dislocation of the glenohumeral joint. TECHNICAL DOCUMENTATION: JOB ID: [id number] Quality ID # [id number]: Final reports with documentation of one or more dose reduction techniques (e.g., Au tomated exposure control, adjustment of the mA and/or kV according to patient size, use of iterative reconstruction technique) 2010 [employer]- All Rights Reserved Reading location - IP/workstation name: [email or web address]
[2019-10-17 17:39] LABS: APPEARANCE,URINE CLEAR; BILIRUBIN,URINE NEGATIVE (NEGATIVE); COLOR,URINE YELLOW; GLUCOSE, URINE NEGATIVE (NEGATIVE); KETONES,URINE TRACE mg/dL (NEGATIVE); LEUKOCYTE ESTERASE,URINE TRACE (NEGATIVE); NITRITE,URINE NEGATIVE (NEGATIVE); PROTEIN,URINE NEGATIVE (NEGATIVE); URINE SPECIFIC GRAVITY 1.014; UROBILINOGEN,URINE NEGATIVE mg/dL (<2.0)
[2019-10-17] MEDS ORDERED: OXYCODONE HCL SR 10 MG TABLET PO ONE (18:48)
[2019-10-17] MEDS ORDERED: ONDANSETRON HCL INJ/PF 4 MG/2 ML SDV IV ONE (18:49)
[2019-10-17 19:57] VITALS: BP 146/57
== END 2019-10-17 20:00 | disposition home or self-care (01) ==
LOC: ER 11:31
DX: S42.221A 2-part displaced fracture of surgical neck of right humerus, initial encounter for closed fracture (principal); R51 Headache; G89.29 Other chronic pain; R32 Unspecified urinary incontinence; R15.9 Full incontinence of feces; W19.XXXA Unspecified fall, initial encounter; Z79.899 Other long term (current) drug therapy; E11.9 Type 2 diabetes mellitus without complications
CPT/HCPCS: 36415; 82550; 85025; 80053; 81001; 73090; 73030; 70450; 72125; 73200; A9270 ×2; J1170; J2405; J7030; 96361; 96374; 96375; 99284

== ENCOUNTER 2019-10-18 07:10 | Emergency (ER) | payer MEDICARE ==
[2019-10-18] MEDS ORDERED: ONDANSETRON HCL INJ/PF 4 MG/2 ML SDV IV ONE ×2 (08:59→23:10)
--- NOTE | 2019-10-18 09:02 | ER Document Report ---
ED General <AARON VALDEZ - Last Filed: 10/19/19 00:22> - General TRAVEL OUTSIDE OF THE [place] IN LAST 30 DAYS: No - Related Data Home Medications: Prednisone. Methadone. Oxycodone <OLIMPIA MARTINEZ - Last Filed: 10/19/19 16:58> - General Chief Complaint: Shortness Of Breath Stated Complaint: DIFFICULTY BREATHING Time Seen by Provider: 10/18/19 08:42 Notes: Patient was treated here yesterday after a fall at home in which she had a fracture to her right proximal humerus. Patient presents complaining of left lower rib pain and shortness of breath. Patient states that the pain is worse with deep inspiration. Patient reports nausea vomiting since yesterday. Patient states she has not been able to keep any of her pain medicines down. Patient denies any new injury. (LORETAOLIMPIA) - Related Data Allergies/Adverse Reactions: No Known Allergies Allergy (Verified 10/17/19 12:35) Past Medical History - Social History Smoking Status: Never Smoker Chew tobacco use (# tins/day): No Frequency of alcohol use: None Drug Abuse: None Family History: Reviewed & Not Pertinent Patient has homicidal ideation: No - Past Medical History Cardiac Medical History: Reports: Hx Hypertension Endocrine Medical History: Reports: Hx Diabetes Mellitus Type 2 Renal/ Medical History: Denies: Hx Peritoneal Dialysis GI Medical History: Reports: Hx Ulcerative Colitis Past Surgical History: Reports: Hx Orthopedic Surgery - left leg <BELLO MARTINEZWARREN - Last Filed: 10/19/19 16:58> Physical Exam - General General appearance: Alert In distress: Mild - HEENT Head: Racoon's eyes Eyes: Periorbital ecchymosis, Periorbital edema - Respiratory Respiratory status: Tachypnea Breath sounds: Rales - Left lower lobe Chest palpation: Tender - Left-sided chest tenderness under left breast and to left upper quadrant. No: Subcutaneous emphysema, Sucking chest wound, Ecchymos is - Cardiovascular Rhythm: Regular Heart sounds: S1 appreciated, S2 appreciated - Abdominal Inspection: Obese Distension: No distension Bowel sounds: Normal Tenderness: Tender - Left upper quadrant tenderness - Back Back: Normal - Extremities General upper extremity: Tender - Tenderness to right proximal humerus, Other - Ecchymosis to left upper extremity General lower extremity: Normal inspection, Normal strength - Neurological Neuro grossly intact: Yes Cognition: Normal [place] Coma Scale Eye Opening: Spontaneous [place] Coma Scale Verbal: Oriented [place] Coma Scale Motor: Obeys Commands [place] Coma Scale Total: 15 - Psychological Associated symptoms: Normal affect, Normal mood - Skin Skin Temperature: Warm Skin Moisture: Dry Skin Color: Ecchymosis <OLIMPIA MARTINEZ - Last Filed: 10/19/19 16:58> - Vital signs Vitals: Temp Pulse Resp BP Pulse Ox 98.9 F 93 16 154/79 H 94 10/18/19 07:19 10/18/19 07:19 10/18/19 07:19 10/18/19 07:19 10/18/19 07:19 Course - Laboratory Result Diagrams: 10/18/19 10:30 10/18/19 10:30 <AARON VALDEZ - Last Filed: 10/19/19 00:22> - Laboratory Result Diagrams: 10/18/19 10:30 10/18/19 10:30 <OLIMPIA MARTINEZ - Last Filed: 10/19/19 16:58> - Re-evaluation Re-evalutation: 10/19/19 00:22 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 I received report from Olimpia Martinez nurse practitioner on this patient. This patient is well-known to her and patient was seen yesterday in the emergency room after sustaining a fall and a fractured humerus. She was sent home only to come back today complaining of severe pain and discomfort in her left ribs. She was x-rayed and found to fractured ribs. Patient states that she is unable to care for herself and that she needs help with placement. Currently patient is a social hold because of the time a day and time to take her to find placement. So we have just been monitoring patient we have reordered her medications we reordered her diets and she will be placed eventually with social worker psychiatric. At this time patient is in no apparent distress she has normal vital signs and is resting comfortably. Patient will be handed off to Jethro Isaac overnight midlevel provider. I have informed him patient has been cooperative and has been no problems. He went up to the physician in the morning. (AARON VALDEZ) 10/18/19 11:[address] Gloria, Dr. Gloria to bedside for examination. Patient does have 2 left-sided rib fractures which account for her left-sided chest pain at this time. Patient also with right humerus fracture. Patient with hypomagnesemia. Patient states she does have a history of underlying heart arrhythmia and has been off of her medications for several days. Patient with falls x2 yesterday due to dizziness. Dr. Gloria recommends consultation with hospitalist for admission. 10/18/19 11:[address] Jett who does agree to come down and evaluate patient. 10/18/19 12:08 Patient continues with nausea and dry heaving, will give additional medicine for nausea. Patient's oral magnesium dose changed to IV. 10/18/19 13:41 Dr. Jett evaluated patient and does not feel that patient meets admission status at this time. Patient will be placed as a social hold and is pending discharge planning consultation. 10/18/19 14:26 Called still pump operator for consultation with discharge planning, still pump operator gave me a number for [employer], message was left for return call regarding patient's discharge planning needs. 10/18/19 15:26 No answer from discharge planning, provider called still pump operator again and was put in touch with a Carmina Platt. Carmina Platt was not aware of the order that had been placed at 11:18 AM. Discussed with Ms. Platt patient's concerns and care needs. Ms. Platt advised that hospitalist declined admission and that patient is unable to care for herself. Ms. Platt states that unless patient can pay for in-home care then patient's only option for assistance is home health at this time. Ms. Platt recommends discharging patient and states that a home health company will be in touch with patient within 48 hours. Discussed with Ms. Platt the concerns that patient is unable to care for herself and that ideally something should be in place prior to her being discharged home. Consulted with Dr. Dougherty who agrees with holding patient as a social hold at this time until more concrete discharge plans can be made. 10/18/19 20:18 Report and handoff given to SANDEEP Lay (OLIMPIA MARTINEZ) - Vital Signs Vital signs: Temp Pulse Resp BP Pulse Ox 98.5 F 74 18 174/68 H 95 10/19/19 14:00 10/19/19 14:00 10/19/19 14:00 10/19/19 14:00 10/19/19 14:00 - Laboratory Laboratory results interpreted by me: 10/18/19 10/18/19 10/18/19 10:30 10:30 10:30 RBC 3.70 L Hgb 10.3 L Hct 31.2 L RDW 15.4 H Sodium 136.4 L Chloride 97 L Carbon Dioxide 31 H Glucose 125 H POC Glucose Magnesium 1.5 L Total Bilirubin 1.4 H AST 50 H NT-Pro-B Natriuret Pep 2820 H Urine Protein Urine Ketones Urine Urobilinogen Ur Leukocyte Esterase 10/18/19 10/18/19 10/19/19 10:45 22:51 07:07 RBC Hgb Hct RDW Sodium Chloride Carbon Dioxide Glucose POC Glucose 117 H 113 H Magnesium Total Bilirubin AST NT-Pro-B Natriuret Pep Urine Protein 30 H Urine Ketones 80 H Urine Urobilinogen 4.0 H Ur Leukocyte Esterase TRACE H Discharge <AARON VALDEZ - Last Filed: 10/19/19 00:22> <OLIMPIA MARTINEZ - Last Filed: 10/19/19 16:58> - Discharge Clinical Impression: Nausea Humerus fracture Qualifiers: Encounter type: subsequent encounter Humerus Location: proximal Fracture type: closed Fracture morphology: unspecified fracture morphology Laterality: right Qualified Code(s): S42.201A - Unspecified fracture of upper end of right humerus, initial encounter for closed fracture Ribs, multiple fractures Qualifiers: Encounter type: initial encounter Fracture type: closed Laterality: left Qualified Code(s): S22.42XA - Multiple fractures of ribs, left side, initial encounter for closed fracture Condition: Good Disposition: HOME, SELF-CARE Additional Instructions: Come back immediately with any new or worrisome conditions, repeat falls, fevers, vomiting, shortness of breath, weakness or numbness, or any other acute problems. Please make sure that you follow-up with your primary care physician.
--- NOTE | 2019-10-18 10:13 | RADIOLOGY REPORT (SQ) ---
EXAM DESCRIPTION: CHEST 2 VIEWS IMAGES COMPLETED DATE/TIME: 10/18/2019 9:44 am REASON FOR STUDY: L rib pain, sob, hx fall yesterday COMPARISON: None. EXAM PARAMETERS: NUMBER OF VIEWS: two views TECHNIQUE: Digital Frontal and Lateral radiographic views of the chest acquired. RADIATION DOSE: NA LIMITATIONS: none FINDINGS: LUNGS AND PLEURA: No opacities, masses or pneumothorax. No pleural effusion. MEDIASTINUM AND HILAR STRUCTURES: No masses or contour abnormalities. HEART AND VASCULAR STRUCTURES: Heart normal size. No evidence for failure. BONES: Severe osteopenia. There are posterior displaced rib fractures 5 and 6 which are age indeterm inate. Lateral ribs obscured. HARDWARE: None in the chest. OTHER: No other significant finding. IMPRESSION: No pneumothorax. Age indeterminate posterior 5th and 6th rib fractures. The left lateral ribs are severely osteopenic . No obvious displaced fracture. Generalized thoracic osteopenia. TECHNICAL DOCUMENTATION: JOB ID: [id number] 2010 [employer]- All Rights Reserved Reading location - IP/workstation name: [email or web address]
--- NOTE | 2019-10-18 10:49 | EKG REPORT ---
SEVERITY:- NORMAL ECG - SINUS RHYTHM : Confirmed by: Richard Palacios MD 18-Oct-2019 10:48:34
[2019-10-18 10:57] LABS: ABSOLUTE BASOPHILS # (AUTO) 0.1 10^3/uL (0.0-0.2); ABSOLUTE EOSINOPHILS # (AUTO) 0.2 10^3/uL (0.0-0.6); ABSOLUTE LYMPHOCYTES (AUTO) 1.4 10^3/uL (0.5-4.7); ABSOLUTE MONOCYTES (AUTO) 0.7 10^3/uL (0.1-1.4); ABSOLUTE NEUT (AUTO) 6.8 10^3/uL (1.7-8.2); BASOPHILS % (AUTO) 1.1 % (0-2); HEMATOCRIT 31.2 % (36.0-47.0); HEMOGLOBIN 10.3 g/dL (12.0-15.5); LYMPHOCYTES % (AUTO) 14.9 % (13-45); MEAN CORPUSCULAR HEMOGLOBIN 27.7 pg (27.0-33.4); MEAN CORPUSCULAR HGB CONC 32.9 g/dL (32.0-36.0); MEAN CORPUSCULAR VOLUME 84 fl (80-97); MONOCYTES % (AUTO) 7.8 % (3-13); PLATELET COUNT 226 10^3/uL (150-450); RED CELL DISTRIBUTION WIDTH 15.4 % (11.5-14.0); SEGMENTED NEUTROPHILS % (AUTO) 74.2 % (42-78); TOTAL CELLS COUNTED % (AUTO) 100 %; WHITE BLOOD COUNT 9.1 10^3/uL (4.0-10.5)
[2019-10-18 10:59] LABS: ALBUMIN 3.8 g/dL (3.5-5.0); ALKALINE PHOSPHATASE 80 U/L (38-126); ANION GAP 8 (5-19); ASPARTATE AMINO TRANSFERASE 50 U/L (14-36); BILIRUBIN,DIRECT 0.2 mg/dL (0.0-0.4); BILIRUBIN,TOTAL 1.4 mg/dL (0.2-1.3); BLOOD UREA NITROGEN 13 mg/dL (7-20); CALCIUM 8.9 mg/dL (8.4-10.2); CARBON DIOXIDE 31 mmol/L (22-30); CHLORIDE 97 mmol/L (98-107); GLUCOSE 125 mg/dL (75-110); POTASSIUM 4.7 mmol/L (3.6-5.0); TOTAL PROTEIN 7.4 g/dL (6.3-8.2)
[2019-10-18 11:04] LABS: APPEARANCE,URINE CLEAR; BILIRUBIN,URINE NEGATIVE (NEGATIVE); COLOR,URINE YELLOW; GLUCOSE, URINE NEGATIVE (NEGATIVE); KETONES,URINE 80 mg/dL (NEGATIVE); LEUKOCYTE ESTERASE,URINE TRACE (NEGATIVE); NITRITE,URINE NEGATIVE (NEGATIVE); PROTEIN,URINE 30 mg/dL (NEGATIVE); URINE SPECIFIC GRAVITY 1.015
[2019-10-18 11:11] LABS: NT PRO BNP 2820 pg/mL (<125)
[2019-10-18 11:14] LABS: TROPONIN I < 0.012 ng/mL
[2019-10-18] MEDS ORDERED: MORPHINE SULFATE 10 MG/ML INJ IV ONE ×2 (11:15→20:15)
--- NOTE | 2019-10-18 11:34 | ER Document Report ---
Doctor's Note Notes: 10/18/19 11:31 I was asked to see this patient by the midlevel provider. This is a 64-year-old female with a history of some type of cardiac dysrhythmia in the past for which she is been treated for over 30 years with a beta-martín. She was seen here yesterday and discharged after sustaining a fall. She comes back in today saying she cannot care for herself at home. She has 2 contiguous rib fractures on the right side which have been documented today. Clinically she has evidence of a basilar skull fracture although her head CT previously was normal. She has a previously identified humerus fracture related to her earlier fall. Her serum magnesium was low at 1.5. I reviewed the chart and briefly examined this patient at bedside. I suggested that we involve social work/discharge planning. We going to give her some pain medication and place her on telemetry monitoring and replenish her magnesium intravenously. I would recommend telemetry observation for this patient.
[2019-10-18] MEDS ORDERED: MAGNESIUM OXIDE 400 MG TABLET PO ONE (11:35)
[2019-10-18] MEDS ORDERED: NADOLOL 40 MG TABLET PO ONE (11:41)
[2019-10-18] MEDS ORDERED: MAGNESIUM SULFATE/D5W 1 GM/100 ML RTUPB IV ONE (12:07)
[2019-10-18] MEDS ORDERED: PROCHLORPERAZINE EDISYLATE INJ 10 MG/2 ML VIAL IV ONE (12:08)
--- NOTE | 2019-10-18 12:32 | RADIOLOGY REPORT (SQ) ---
EXAM DESCRIPTION: ELBOW LEFT OVER 2 VIEWS IMAGES COMPLETED DATE/TIME: 10/18/2019 11:10 am REASON FOR STUDY: fall,left elbow pain. COMPARISON: None. NUMBER OF VIEWS: Four views. TECHNIQUE: AP, lateral, and both oblique radiographic images acquired of the left elbow. LIMITATIONS: None. FINDINGS: MINERALIZATION: Normal. BONES: No acute fracture or dislocation. No worrisome bone lesions. JOINT: No effusion. SOFT TISSUES: No soft tissue swelling. No foreign body. OTHER: No other significant finding. IMPRESSION: NEGATIVE STUDY OF THE LEFT ELBOW. NO RADIOGRAPHIC EVIDENCE OF ACUTE INJURY. TECHNICAL DOCUMENTATION: JOB ID: [id number] 2010 [employer]- All Rights Reserved Reading location - IP/workstation name: [email or web address]
--- NOTE | 2019-10-18 12:33 | RADIOLOGY REPORT (SQ) ---
EXAM DESCRIPTION: KNEE BILATERAL 1-2 VIEWS IMAGES COMPLETED DATE/TIME: 10/18/2019 11:10 am REASON FOR STUDY: fall,bilat knee pain. COMPARISON: None. NUMBER OF VIEWS: Four views TECHNIQUE: AP and lateral standing bilateral knees. LIMITATIONS: None. FINDINGS: MINERALIZATION: Normal. RIGHT KNEE BONES: No acute fracture. No worrisome bone lesions. MEDIAL COMPARTMENT: No significant osteophytes. No joint space narrowing. No chondrocalcinosis. LATERAL COMPARTMENT: No significant osteophytes. No joint space narrowing. No chondrocalcinosis. PATELLOFEMORAL COMPARTMENT: No significant osteophytes. No joint space narrowing. No chondrocalc inosis. LEFT KNEE BONES: No acute fracture. No worrisome bone lesions. MEDIAL COMPARTMENT: No significant osteophytes. No joint space narrowing. No chondrocalcinosis. LATERAL COMPARTMENT: No significant osteophytes. No joint space narrowing. No chondrocalcinosis. PATELLOFEMORAL COMPARTMENT: No significant osteophytes. No joint space narrowing. No chondrocalc inosis. IMPRESSION: NEGATIVE STUDY OF THE STANDING RIGHT AND LEFT KNEES. NO SIGNIFICANT JOINT SPACE NARROWIN G OR OTHER SIGNS OF ARTHRITIS. TECHNICAL DOCUMENTATION: JOB ID: [id number] 2010 [employer]- All Rights Reserved Reading location - IP/workstation name: [email or web address]
--- NOTE | 2019-10-18 13:18 | PDOC CONSULTATION ---
Consultation Consult Date: 10/18/19 Attending physician:: QUAN REED Provider Consulted: WON DUARTE Consult reason:: patient wants admission History of Present Illness History of Present Illness: LILLY FERRER is a 64 year old female who initially came to the ER yesterday after she fell at the [place] where she has been staying. She was found to have suffered a scalp hematoma and a right proximal humerus fracture. Follow-up was arranged with Dr. madrigal in his office. The patient wanted to stay in the hospital yesterday but as there was no indication for inpatient admission she was discharged home. She came back in today and had different complaints depending on who asked her. She told 1 person weakness. She told another person dizziness. She told me nausea. She told someone else palpitations. I think she told someone shortness of breath because a chest x-ray was ordered, and it was unremarkable except for some lateral nondisplaced rib fractures which were not noted yesterday because no chest imaging had been done, presumably because there was no indication to do so at that time based on the patient's symptoms. She said that she has a history of an arrhythmia and has not been on any of her medications in several days. However, she is in a sinus rhythm on telemetry and has a normal EKG. I went back and looked at all of her old EKGs in this hospital dating back to 2013, of which there are several. They all show sinus rhythm. I reviewed the patient's telemetry and saw no evidence of any arrhythmia. When she came to the ER yesterday, no evidence of any arrhythmia was noted at that time either. The patient was complaining of some nausea, but she has not vomited that anyone has witnessed or seen evidence of. Her vital signs are all stable. She has no remarkable laboratory abnormalities. Other than the previously noted nondisplaced rib fractures, her chest imaging was normal. I reviewed her head CT from yesterday and could find no evidence of intracranial hemorrhage or fracture. She did have the previously noted scalp hematomas. The patient says she has plenty of pain medication at home, but she wanted Dr. Low to come over from his clinic to see her about doing a pr ocedure on her shoulder. I told her that they had actually consulted Dr. Garcia who is a surgeon whereas Dr. Low does pain management. Patient says her main concern is that she has no one at home to take care of her. She was able to get out of the cab yesterday and walk back into her motel room. She refuses to try to get up now. Past Medical History Cardiac Medical History: Reports: Hypertension Endocrine Medical History: Reports: Diabetes Mellitus Type 2 GI Medical History: Reports: Ulcerative Colitis Past Surgical History Past Surgical History: Reports: Orthopedic Surgery - left leg Social History Smoking Status: Never Smoker Electronic Cigarette use?: No Frequency of Alcohol Use: None Hx Recreational Drug Use: No Hx Prescription Drug Abuse: No Family History Family History: Reviewed & Not Pertinent Parental Family History Reviewed: Yes - Unknown Children Family History Reviewed: NA Sibling(s) Family History Reviewed.: Unknown Medication/Allergy Home Medications: Baclofen [Baclofen 10 mg Tablet] 20 mg PO Q12 01/04/19 Dextroamphetamine/Amphetamine [Adderall 30 mg Tablet] 30 mg PO TID 01/04/19 Escitalopram Oxalate [Lexapro] 30 mg PO DAILY 01/04/19 Gabapentin [Neurontin 400 mg Capsule] 400 mg PO QHS 01/04/19 Metformin HCl [Glucophage] 1,000 mg PO BID 01/04/19 Methadone HCl [Dolophine 10 mg Tablet] 10 mg PO Q6 01/04/19 Nadolol [Corgard 40 mg Tablet] 40 mg PO Q12 01/04/19 Oxycodone HCl 30 mg PO Q8HP PRN 01/04/19 Prednisone [Deltasone 5 mg Tablet] 5 mg PO TID 01/04/19 Valacyclovir HCl [Valtrex 500 mg Tablet] 500 mg PO BID 01/04/19 Ondansetron [Zofran Odt 4 mg Tablet] 1 - 2 tab PO Q4H PRN #30 tab.rapdis 10/17/19 Allergies/Adverse Reactions: No Known Allergies Allergy (Verified 10/17/19 12:35) Review of Systems All systems: reviewed and no additional remarkable complaints except as stated - All systems were reviewed and were negative except as noted in the HPI Physical Exam Vital Signs: Temp Pulse Resp BP Pulse Ox 98.9 F 93 21 H 136/85 H 93 10/18/19 07:21 10/18/19 07:19 10/18/19 11:37 10/18/19 11:37 10/18/19 11:39 Intake & Output 10/17/19 10/18/19 10/19/19 06:59 06:59 06:59 Weight 75.75 kg General appearance: PRESENT: no acute distress, cooperative, disheveled Head exam: PRESENT: other - She has bruises around both eyes and a scalp hematoma over the right anterior lateral cranium and over the left posterior lateral cranium Eye exam: PRESENT: EOMI, PERRLA. ABSENT: conjunctival injection, nystagmus, scleral icterus Ear exam: PRESENT: normal external ear exam Mouth exam: PRESENT: moist, neck supple Teeth exam: PRESENT: poor dentation Neck exam: PRESENT: full ROM. ABSENT: carotid bruit, JVD, meningismus, tenderness, thyromegaly Respiratory exam: PRESENT: chest wall tenderness - Left lateral chest, clear to auscultation char, symmetrical, unlabored. ABSENT: accessory muscle use, crackles, prolonged expiratory phas, rhonchi, tachypnea, wheezes Cardiovascular exam: PRESENT: RRR, +S1, +S2. ABSENT: diastolic murmur, systolic murmur Pulses: PRESENT: normal carotid pulses Vascular exam: PRESENT: normal capillary refill GI/Abdominal exam: PRESENT: normal bowel sounds, soft. ABSENT: distended, guarding, rebound, tenderness Extremities exam: PRESENT: tenderness - Right shoulder. ABSENT: clubbing, pedal edema Musculoskeletal exam: PRESENT: normal inspection, tenderness - Right shoulder, which is in a sling Neurological exam: PRESENT: alert, awake, oriented to person, oriented to place, oriented to situation, CN II-XII grossly intact. ABSENT: motor sensory deficit Psychiatric exam: PRESENT: anxious Skin exam: PRESENT: dry, warm, other - Bruises as previously noted Results Laboratory Results: 10/18/19 10:30 10/18/19 10:30 10/18/19 10/18/19 10/18/19 10:30 10:30 10:45 WBC 9.1 RBC 3.70 L Hgb 10.3 L Hct 31.2 L MCV 84 MCH 27.7 MCHC 32.9 RDW 15.4 H Plt Count 226 Seg Neutrophils % 74.2 Sodium 136.4 L Potassium 4.7 Chloride 97 L Carbon Dioxide 31 H Anion Gap 8 BUN 13 Creatinine 0.56 Est GFR ( Amer) > 60 Glucose 125 H Calcium 8.9 Magnesium 1.5 L Total Bilirubin 1.4 H AST 50 H Alkaline Phosphatase 80 Total Protein 7.4 Albumin 3.8 Urine Color YELLOW Urine Appearance CLEAR Urine pH 7.0 Ur Specific Shanks 1.015 Urine Protein 30 H Urine Glucose (UA) NEGATIVE Urine Ketones 80 H Urine Blood NEGATIVE Urine Nitrite NEGATIVE Ur Leukocyte Esterase TRACE H Urine WBC (Auto) 6 Urine RBC (Auto) 0 10/18/19 10:30 Troponin I < 0.012 NT-Pro-B Natriuret Pep 2820 H Impressions: Chest X-Ray 10/18/19 08:58 IMPRESSION: No pneumothorax. Age indeterminate posterior 5th and 6th rib fractures. The left lateral ribs are severely osteopenic. No obvious displaced fracture. Generalized thoracic osteopenia. Elbow X-Ray 10/18/19 11:12 IMPRESSION: NEGATIVE STUDY OF THE LEFT ELBOW. NO RADIOGRAPHIC EVIDENCE OF ACUTE INJURY. Knee X-Ray 10/18/19 11:12 IMPRESSION: NEGATIVE STUDY OF THE STANDING RIGHT AND LEFT KNEES. NO SIGNIFICANT JOINT SPACE NARROWING OR OTHER SIGNS OF ARTHRITIS. Assessment and Plan - Diagnosis (1) Humerus fracture Qualifiers: Encounter type: subsequent encounter Humerus Location: proximal Fracture type: closed Fracture morphology: unspecified fracture morphology Laterality: right Qualified Code(s): S42.201A - Unspecified fracture of upper end of right humerus, initial encounter for closed fracture Is this a current diagnosis for this admission?: Yes (2) Ribs, multiple fractures Qualifiers: Encounter type: initial encounter Fracture type: closed Laterality: left Qualified Code(s): S22.42XA - Multiple fractures of ribs, left side, initial encounter for closed fracture Is this a current diagnosis for this admission?: Yes (3) Fall Qualifiers: Encounter type: subsequent encounter Qualified Code(s): W19.XXXD - Unspecified fall, subsequent encounter Is this a current diagnosis for this admission?: Yes (4) H/O Sjogren's disease Is this a current diagnosis for this admission?: Yes (5) Chronically on opiate therapy Is this a current diagnosis for this admission?: Yes - Plan Summary Summary: The patient does not meet criteria for hospital admission. She does not have any active medical conditions that need treatment in the hospital. She already has follow-up arranged for her shoulder fracture with Dr. Garcia. Her rib fractures are nondisplaced, and not an indication for admission. She did not have any evidence of any arrhythmia, either presently or historically. All of her vital signs and labs are within normal limits or otherwise unremarkable. If the ED is concerned about her disposition, they may keep her as a social hold in their department, where she can receive consultations from social work and case management, but there is no need at this time for inpatient admission as all of her medical issues have already been addressed and she has no active problems that require inpatient management. - Time Time Spent with patient: 35 or more minutes
[2019-10-18] MEDS ORDERED: OXYCODONE HCL IR 5 MG TABLET PO PRN (22:15)
[2019-10-18] MEDS ORDERED: GABAPENTIN 300 MG CAPSULE PO ONE (22:15)
[2019-10-18] MEDS ORDERED: PREDNISONE 5 MG TABLET PO ONE (22:15)
[2019-10-18] MEDS ORDERED: METFORMIN HCL 500 MG TABLET PO ONE (23:00)
[2019-10-18] MEDS: BACLOFEN 10 MG TABLET PO SCH (23:04)
[2019-10-19] MEDS: METHADONE HCL 10 MG TABLET PO SCH ×3 (01:58→13:24)
[2019-10-19] MEDS ORDERED: NADOLOL 40 MG TABLET ONE (02:13)
[2019-10-19] MEDS: NADOLOL 40 MG TABLET PO SCH ×2 (02:18→10:17)
[2019-10-19] MEDS ORDERED: PREDNISONE 5 MG TABLET PO SCH (10:00)
[2019-10-19] MEDS ORDERED: METFORMIN HCL 500 MG TABLET PO SCH (10:00)
[2019-10-19] MEDS ORDERED: GABAPENTIN 300 MG CAPSULE PO SCH (10:00)
[2019-10-19] MEDS ORDERED: NADOLOL 40 MG TABLET PO SCH (10:00)
[2019-10-19] MEDS: BACLOFEN 10 MG TABLET PO SCH (10:17)
[2019-10-19] MEDS ORDERED: NORMAL SALINE 1000 ML 1,000 ML IV ONE (10:53)
--- NOTE | 2019-10-19 10:53 | ER Document Report ---
Doctor's Note Notes: 10/19/19 10:50 No acute events overnight. Vital signs stable. The nurse practitioner that saw the patient is attempting to find home health or some sort of community assistance prior to being discharged. Social work states it could not be initiated over the weekend. We will wait for community help to be available before being discharged home.
[2019-10-19 14:13] VITALS: BP 174/68
== END 2019-10-19 14:13 | disposition home or self-care (01) ==
LOC: ER 07:10
DX: S42.201A Unspecified fracture of upper end of right humerus, initial encounter for closed fracture (principal); S22.42XA Multiple fractures of ribs, left side, initial encounter for closed fracture; R11.0 Nausea; R06.02 Shortness of breath; R06.00 Dyspnea, unspecified; W19.XXXA Unspecified fall, initial encounter; Y92.009 Unspecified place in unspecified non-institutional (private) residence as the place of occurrence of the external cause; I10 Essential (primary) hypertension; E11.9 Type 2 diabetes mellitus without complications
CPT/HCPCS: 93005; 96376; 99284; 96375; 96365; 36415; 82962; 83735; 85025; 80053; 81001; 84484; 83880; 71046; 73080; 73560; 93010; A9270 ×8; J2270; J3475; J0780; J2405; J7030; J3490; J7512

== ENCOUNTER → 2020-01-12 | Outpatient (CLI) | payer MEDICARE ==
--- NOTE | 2020-01-12 18:06 | RADIOLOGY REPORT (SQ) ---
EXAM DESCRIPTION: T SPINE AP/LAT IMAGES COMPLETED DATE/TIME: 01/12/2020 5:52 pm REASON FOR STUDY: LOW BACK PAIN M54.5 LOW BACK PAIN COMPARISON: None. NUMBER OF VIEWS: Two views. TECHNIQUE: AP and lateral radiographic images acquired of the thoracic spine. LIMITATIONS: None. FINDINGS: MINERALIZATION: Normal. ALIGNMENT: Normal. No scoliosis. VERTEBRAE: Compression changes at T12 and L1 with kyphoplasty. DISCS: No significant loss of height or significant narrowing. No large osteophytes. HARDWARE: None in the spine. MEDIASTINUM AND SOFT TISSUES: Normal heart size and aortic contour. No soft tissue abnormality. VISUALIZED LUNG VILLALBA: Clear. OTHER: No other significant finding. IMPRESSION: NO SIGNIFICANT RADIOGRAPHIC FINDING IN THE THORACIC SPINE. TECHNICAL DOCUMENTATION: JOB ID: [id number] 2010 [employer]- All Rights Reserved Reading location - IP/workstation name: [email or web address]
--- NOTE | 2020-01-12 18:07 | RADIOLOGY REPORT (SQ) ---
EXAM DESCRIPTION: LUMBAR SPINE COMPLETE IMAGES COMPLETED DATE/TIME: 01/12/2020 5:52 pm REASON FOR STUDY: LOW BACK PAIN M54.5 LOW BACK PAIN COMPARISON: None. NUMBER OF VIEWS: Five views including obliques. TECHNIQUE: AP, lateral, oblique, and sacral radiographic images acquired of the lumbar spine. LIMITATIONS: None. FINDINGS: MINERALIZATION: Normal. SEGMENTATION: Normal. No transitional anatomy. ALIGNMENT: Normal. VERTEBRAE: Kyphoplasty changes at T12 and L1 for compression changes. DISCS: Preserved height. No significant osteophytes or end plate irregularity. POSTERIOR ELEMENTS: Mild hypertrophic facet changes from L4 to S1. HARDWARE: None in the spine. PARASPINAL SOFT TISSUES: Normal. PELVIS: Intact as visualized. No fractures or worrisome bone lesions. SI joints intact. OTHER: No other significant finding. IMPRESSION: Kyphoplasty changes. Mild facet arthropathy. TECHNICAL DOCUMENTATION: JOB ID: [id number] 2010 [email or web address]- All Rights Reserved Reading location - IP/workstation name: [email or web address]
== END ==
LOC: RAD 16:54
PROVIDERS: ATTEND Physician Assistant
DX: M54.5 Low back pain (principal)
CPT/HCPCS: 72070; 72110

== ENCOUNTER 2020-01-31 23:21 | Inpatient (IN) | payer MEDICARE ==
[2020-02-01] MEDS ORDERED: FENTANYL CITRATE INJ/PF 100 MCG/2 ML AMPUL IV ONE
[2020-02-01] MEDS ORDERED: ONDANSETRON HCL INJ/PF 4 MG/2 ML SDV IV ONE
[2020-02-01] MEDS ORDERED: PIPERACILLIN/TAZOBACTAM 3.375 GM VIAL IV ONE (00:04)
[2020-02-01] MEDS: NORMAL SALINE 1000 ML 1,000 ML IV PRN ×4 (00:10→16:59)
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
[2020-02-01 01:07] LABS: ABSOLUTE BASOPHILS # (AUTO) 0.2 10^3/uL (0.0-0.2); ABSOLUTE EOSINOPHILS # (AUTO) 0.1 10^3/uL (0.0-0.6); ABSOLUTE LYMPHOCYTES (AUTO) 1.7 10^3/uL (0.5-4.7); ABSOLUTE MONOCYTES (AUTO) 0.7 10^3/uL (0.1-1.4); ABSOLUTE NEUT (AUTO) 10.1 10^3/uL (1.7-8.2); BASOPHILS % (AUTO) 1.4 % (0-2); EOSINOPHILS % (AUTO) 1.1 % (0-6); HEMATOCRIT 36.5 % (36.0-47.0); HEMOGLOBIN 12.1 g/dL (12.0-15.5); LYMPHOCYTES % (AUTO) 13.3 % (13-45); MEAN CORPUSCULAR HEMOGLOBIN 26.1 pg (27.0-33.4); MEAN CORPUSCULAR VOLUME 79 fl (80-97); MONOCYTES % (AUTO) 5.8 % (3-13); PLATELET COUNT 242 10^3/uL (150-450); RED BLOOD COUNT 4.62 10^6/uL (3.72-5.28); RED CELL DISTRIBUTION WIDTH 16.4 % (11.5-14.0); SEGMENTED NEUTROPHILS % (AUTO) 78.4 % (42-78); TOTAL CELLS COUNTED % (AUTO) 100 %; WHITE BLOOD COUNT 12.9 10^3/uL (4.0-10.5)
[2020-02-01 01:13] LABS: APPEARANCE,URINE CLEAR; BILIRUBIN,URINE NEGATIVE (NEGATIVE); COLOR,URINE YELLOW; GLUCOSE, URINE NEGATIVE (NEGATIVE); KETONES,URINE 20 mg/dL (NEGATIVE); LEUKOCYTE ESTERASE,URINE NEGATIVE (NEGATIVE); NITRITE,URINE NEGATIVE (NEGATIVE); PROTEIN,URINE 100 mg/dL (NEGATIVE); URINE SPECIFIC GRAVITY 1.023; UROBILINOGEN,URINE NEGATIVE mg/dL (<2.0)
[2020-02-01 01:21] LABS: ALBUMIN 4.4 g/dL (3.5-5.0); ALKALINE PHOSPHATASE 134 U/L (38-126); ANION GAP 9 (5-19); ASPARTATE AMINO TRANSFERASE 96 U/L (14-36); BILIRUBIN,DIRECT 0.8 mg/dL (0.0-0.4); BILIRUBIN,TOTAL 1.9 mg/dL (0.2-1.3); BLOOD UREA NITROGEN 43 mg/dL (7-20); CALCIUM 9.4 mg/dL (8.4-10.2); CARBON DIOXIDE 28 mmol/L (22-30); CHLORIDE 99 mmol/L (98-107); CREATINE KINASE 810 U/L (30-135); GLUCOSE 161 mg/dL (75-110); POTASSIUM 4.5 mmol/L (3.6-5.0); TOTAL PROTEIN 8.6 g/dL (6.3-8.2)
[2020-02-01 01:32] LABS: URINE AMPHETAMINES SCREEN NEGATIVE; URINE BARBITURATES SCREEN NEGATIVE; URINE BENZODIAZEPINES SCREEN NEGATIVE; URINE COCAINE SCREEN NEGATIVE; URINE MARIJUANA (THC) SCREEN NEGATIVE; URINE PHENCYCLIDINE SCREEN NEGATIVE
--- NOTE | 2020-02-01 01:32 | RADIOLOGY REPORT (SQ) ---
CLINICAL INDICATION: fall. Pain and deformity. TECHNIQUE: 2 view(s) were obtained of the left leg. COMPARISON: None. FINDINGS: Ankle fracture is identified. Incompletely imaged on this examination. No other fracture is appreciated. . Knee is unremarkable. Soft tissue swelling. If knee is clinically in suspicion, then dedicated radiography is advised. IMPRESSION: No acute bony injury to the proximal leg. Ankle has been imaged separately.
--- NOTE | 2020-02-01 01:32 | RADIOLOGY REPORT (SQ) ---
EXAM DESCRIPTION: X-RAY CHEST- One View CLINICAL HISTORY: Hypertension COMPARISON: Oct 18 [address] of the right upper extremity October 17, 2019 TECHNIQUE: Single view of the chest. FINDINGS: There is redemonstration of left sided posterior rib fractures, similar to prior exam and likely chronic in nature. Trace blunting of the left costophrenic angle is nonspecific and may represent a small pleural effusion versus chronic pleural parenchymal scarring. Pulmonary vascularity is similar in appearance of the cardiac silhouette remains mildly enlarged. There is diffusely decreased bone mineral density. Patient is status post internal fixation of the left proximal humerus. There is a fracture deformity of the right proximal humerus, incompletely evaluated with this technique. Spring material overlying the left neck soft tissues is favored to overlie the patient. IMPRESSION: 1. Blunting of left costophrenic angle may indicate a small left pleural effusion versus pleural parenchymal scarring. 2. Diffusely decreased bone mineral density. Fracture deformity of the right proximal humerus is incompletely evaluated with this technique, detailed on prior CT October 17, 2019. Stable left rib fracture deformities are again noted.
[2020-02-01 01:33] LABS: URINE METHADONE SCREEN UNCONFIRMED POSITIVE
--- NOTE | 2020-02-01 01:33 | RADIOLOGY REPORT (SQ) ---
CLINICAL INDICATION: fall. Pain and swelling and deformity. TECHNIQUE: 3 view(s) were obtained of the left ankle. COMPARISON: None. FINDINGS: Comminuted fracture dislocation is identified. Comminuted medial malleolar fracture. Displaced posterior malleolar fracture. Disruption of the tibiotalar joint. Comminuted lateral malleolar fracture with impaction. Mortise is disrupted. Soft tissue swelling. IMPRESSION: Fracture dislocation as described.
[2020-02-01] MEDS ORDERED: ETOMIDATE INJ/PF 20 MG/10 ML SDV IV ONE (01:54)
--- NOTE | 2020-02-01 02:56 | RADIOLOGY REPORT (SQ) ---
INDICATION: fal/ head injury/ nausea. COMPARISON: October 17, 2019 CORRELATION: None TECHNIQUE: Noncontrast spiral axial CT images were obtained from the skull base to vertex. This exam was performed according to our departmental dose-optimization program, which includes automated exposure control, adjustment of the mA and/or kV according to patient size and/or use of iterative reconstruction techniques. FINDINGS: There is no evidence of acute intracranial hemorrhage, midline shift, mass effect or mass lesion. Brower-white differentiation is normal. There is no evidence of acute large territory infarct. Ventricles and extracerebral spaces are within normal limits, for age. The facial bones are dictated separately. Skull base and calvarium appear intact. IMPRESSION: No acute intracranial process is identified.
--- NOTE | 2020-02-01 02:59 | RADIOLOGY REPORT (SQ) ---
INDICATION: fal/ head injury/ nausea. COMPARISON: None CORRELATION: None TECHNIQUE: Noncontrast spiral axial CT images were obtained of the facial bones. Multiplanar reconstructions. This exam was performed according to our departmental dose-optimization program, which includes automated exposure control, adjustment of the mA and/or kV according to patient size and/or use of iterative reconstruction techniques. FINDINGS: Examination is not adequate for evaluation of intracranial contents. No acute displaced fracture seen of the facial bones. Alignment is anatomic. The paranasal sinuses are grossly clear. Mastoid air cells are clear. Orbits and eyeballs are unremarkable.. Carotid calcification. IMPRESSION: No acute bony injury is seen to the face.
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
--- NOTE | 2020-02-01 03:10 | RADIOLOGY REPORT (SQ) ---
CLINICAL INDICATION: post reduction. Ankle fracture. TECHNIQUE: 2 view(s) were obtained of the left ankle. 0252 hours COMPARISON: 0047 hours. FINDINGS: Comminuted fracture dislocation is again identified. It is mildly improved.. Tibiotalar dislocation remains. Soft tissue swelling. Detail obscured by splint. IMPRESSION: Mildly improved alignment.
[2020-02-01] MEDS ORDERED: MORPHINE SULFATE 10 MG/ML INJ IV ONE (03:30)
[2020-02-01] MEDS ORDERED: PROPOFOL INJ 200 MG/20 ML VIAL IV ONE (03:51)
[2020-02-01] MEDS ORDERED: IPRATROPIUM/ALBUTEROL 0.5-2.5 MG/3 ML AMPUL NEB PRN (04:20)
[2020-02-01] MEDS ORDERED: MAG HYDROX/AL HYDROX/SIMETH SUSP 30 ML UDCUP PO PRN (04:20)
[2020-02-01] MEDS ORDERED: MAGNESIUM HYDROXIDE SUSP 30 ML UDCUP PO PRN (04:20)
--- NOTE | 2020-02-01 04:29 | RADIOLOGY REPORT (SQ) ---
EXAM: XR Right Humerus, 2 or More Views EXAM DATE/TIME: 02/01/2020 03:44 CLINICAL HISTORY: The patient is 64 years old and is Female; fx seen on cxr TECHNIQUE: Frontal and lateral views of the right humerus. COMPARISON: Chest radiograph from 02/01/2020 at 12:40 AM, right shoulder CT from 10/17/2019 FINDINGS: BONES/JOINTS: Subacute to chronic fracture deformity of the right proximal humerus is again demonstrated. Alignment of the glenohumeral joint cannot be assessed on the available radiographs. There is no obvious new fracture visualized. SOFT TISSUES: No significant soft tissue swelling visualized. IMPRESSION: Fracture deformity of the right proximal humerus again demonstrated. Alignment of the glenohumeral joint is difficult to assess on this exam. No obvious acute fracture visualized.
[2020-02-01] MEDS ORDERED: DEXTROSE 50%-WATER 25 GM/50 ML DISP.SYRIN IV PRN ×2 (04:34)
[2020-02-01] MEDS ORDERED: DEXTROSE 40% GEL 15 GM TUBE PO PRN ×2 (04:34)
[2020-02-01] MEDS ORDERED: PROMETHAZINE HCL INJ 25 MG/1 ML VIAL IV PRN (04:34)
[2020-02-01] MEDS ORDERED: GLUCAGON,HUMAN RECOMB 1 MG INJ IM PRN (04:34)
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
--- NOTE | 2020-02-01 05:16 | RADIOLOGY REPORT (SQ) ---
EXAM DESCRIPTION: XR ANKLE 2 VIEWS COMPLETED DATE/TME: 02/01/2020 00:00 CLINICAL HISTORY: 64 years, Female, post reduction COMPARISON: 02/01/2020 at 2:51 AM NUMBER OF VIEWS: Two TECHNIQUE: Two views of the left ankle LIMITATIONS: None. FINDINGS: Overlying fiberglass splint is in place, which obscures fine bony detail. The oblique fracture of the distal fibula and comminuted fractures of the medial posterior malleolus have been reduced and now is in near anatomic alignment. Tibiotalar dislocation has been reduced. IMPRESSION: Interval reduction of the trimalleolar fracture and tibiotalar dislocation, which is now in near anatomic alignment. copyright 2010 [employer]- All Rights Reserved
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
[2020-02-01] MEDS: OXYCODONE HCL IR 5 MG TABLET PO PRN ×3 (05:54→22:06)
[2020-02-01] MEDS: HEPARIN SOD (PORCINE) 5,000 UNIT/ML 1 ML VIAL SUBCUT SCH ×3 (05:54→22:05)
[2020-02-01] MEDS: INSULIN LISPRO 100 UNIT/ML 3 ML VIAL SUBCUT SCH ×3 (07:30→18:25)
[2020-02-01] MEDS: GABAPENTIN 300 MG CAPSULE PO SCH ×4 (07:31→22:05)
[2020-02-01] MEDS: ONDANSETRON HCL INJ/PF 4 MG/2 ML SDV IV PRN (08:31)
[2020-02-01] MEDS ORDERED: NADOLOL 40 MG TABLET PO SCH (10:00)
[2020-02-01] MEDS: DOCUSATE SODIUM 100 MG CAPSULE PO SCH ×2 (10:03→18:36)
[2020-02-01] MEDS: FAMOTIDINE 20 MG TABLET PO SCH ×2 (10:04→22:05)
[2020-02-01] MEDS: NADOLOL 40 MG TABLET PO SCH ×2 (10:04→22:04)
[2020-02-01] MEDS ORDERED: HALOPERIDOL LACTATE INJ 5 MG/1 ML VIAL IV ONE (12:00)
[2020-02-01] MEDS: METHADONE HCL 10 MG TABLET PO SCH ×2 (13:25→18:50)
--- NOTE | 2020-02-01 16:22 | PDOC PROGRESS REPORT ---
Subjective Progress Note for:: 02/01/20 Subjective:: The patient is a 64-year-old female with a past medical history of hypertension, COPD, DM 2, ulcerative colitis, chronic pain, tobacco dependency, and opiate dependent chronic pain who was admitted 02/01/2020 for Metabolic encephalopathy, multiple falls, mild rhabdomyolysis, and a closed left ankle fracture. Patient was seen on morning rounds. She was found resting in bed, comfortably, on room air. She is now alert and oriented x4, though with continued difficulty recalling events, higher level thinking, and some confabulation. The patient is quite vocal about her nausea and dry heaving. She asks to have her pain medication resumed; she has informed nursing that she takes her entire daily dose of methadone and oxycodone at the same time each day as she is unable to remember her dosing otherwise. Otherwise, she has no complaints or concerns at this time. She denies fever, chills, chest pain, palpitations, dyspnea, abdominal pain. No concerns per nursing. Reason For Visit: LEFT ANKLE FRACTURE,CHRONIC PAIN,ARRHYTHMIA, Physical Exam Vital Signs: Temp Pulse Resp BP Pulse Ox 98.6 F 77 22 H 125/46 L 91 L 02/01/20 12:13 02/01/20 12:13 02/01/20 12:13 02/01/20 12:13 02/01/20 12:13 Intake & Output 01/31/20 02/01/20 02/02/20 06:59 06:59 06:59 Intake Total 100 Output Total 300 275 Balance -200 -275 Weight 70.4 kg General appearance: PRESENT: no acute distress, disheveled, well-developed, well-nourished Head exam: PRESENT: atraumatic, normocephalic Eye exam: PRESENT: conjunctiva pink, EOMI, PERRLA. ABSENT: scleral icterus Mouth exam: PRESENT: moist, tongue midline Teeth exam: PRESENT: poor dentation Respiratory exam: PRESENT: clear to auscultation char, symmetrical, unlabored. ABSENT: rales, rhonchi, wheezes Cardiovascular exam: PRESENT: RRR, +S1, +S2. ABSENT: diastolic murmur, rubs, systolic murmur Vascular exam: PRESENT: normal capillary refill Extremities exam: PRESENT: tenderness - LLE. ABSENT: calf tenderness, clubbing, pedal edema Neurological exam: PRESENT: alert, awake, oriented to person, oriented to place, oriented to time, oriented to situation, CN II-XII grossly intact. ABSENT: motor sensory deficit Psychiatric exam: PRESENT: normal mood, unusual affect. ABSENT: homicidal ideation, suicidal ideation Skin exam: PRESENT: dry, intact, warm, other - numerous, large, bruises in various stages of healing. ABSENT: cyanosis, rash Results Laboratory Results: 01/31/20 23:45 01/31/20 23:45 01/31/20 01/31/20 01/31/20 23:45 23:45 23:45 WBC 12.9 H RBC 4.62 Hgb 12.1 Hct 36.5 MCV 79 L MCH 26.1 L MCHC 33.0 RDW 16.4 H Plt Count 242 Seg Neutrophils % 78.4 H Sodium 135.5 L Potassium 4.5 Chloride 99 Carbon Dioxide 28 Anion Gap 9 BUN 43 H Creatinine 1.20 Est GFR ( Amer) 54 L Glucose 161 H Lactic Acid 1.7 Calcium 9.4 Magnesium 1.9 Total Bilirubin 1.9 H AST 96 H Alkaline Phosphatase 134 H Total Protein 8.6 H Albumin 4.4 Urine Color Urine Appearance Urine pH Ur Specific [place] Urine Protein Urine Glucose (UA) Urine Ketones Urine Blood Urine Nitrite Ur Leukocyte Esterase Urine WBC (Auto) Urine RBC (Auto) 02/01/20 00:54 WBC RBC Hgb Hct MCV MCH MCHC RDW Plt Count Seg Neutrophils % Sodium Potassium Chloride Carbon Dioxide Anion Gap BUN Creatinine Est GFR ( Amer) Glucose Lactic Acid Calcium Magnesium Total Bilirubin AST Alkaline Phosphatase Total Protein Albumin Urine Color YELLOW Urine Appearance CLEAR Urine pH 6.0 Ur Specific [place] 1.023 Urine Protein 100 H Urine Glucose (UA) NEGATIVE Urine Ketones 20 H Urine Blood LARGE H Urine Nitrite NEGATIVE Ur Leukocyte Esterase NEGATIVE Urine WBC (Auto) 1 Urine RBC (Auto) 0 01/31/20 23:45 Creatine Kinase 810 H Impressions: Chest X-Ray 02/01/20 00:00 IMPRESSION: 1. Blunting of left costophrenic angle may indicate a small left pleural effusion versus pleural parenchymal scarring. 2. Diffusely decreased bone mineral density. Fracture deformity of the right proximal humerus is incompletely evaluated with this technique, detailed on prior CT October 17, 2019. Stable left rib fracture deformities are again noted. Facial Bones CT 09/13/20 00:04 IMPRESSION: No acute bony injury is seen to the face. Head CT 02/01/20 00:04 IMPRESSION: No acute intracranial process is identified. Cervical Spine CT 02/01/20 00:06 IMPRESSION: No acute findings. Tibia/Fibula X-Ray 02/01/20 00:06 IMPRESSION: No acute bony injury to the proximal leg. Ankle has been imaged separately. Ankle X-Ray 02/01/20 02:40 IMPRESSION: Mildly improved alignment. Humerus X-Ray 02/01/20 03:44 IMPRESSION: Fracture deformity of the right proximal humerus again demonstrated. Alignment of the glenohumeral joint is difficult to assess on this exam. No obvious acute fracture visualized. Assessment and Plan - Diagnosis (1) Metabolic encephalopathy Is this a current diagnosis for this admission?: Yes Plan: Improved; patient is alert and oriented x4, though easily confused, forgetful, and confabulates. Her encephalopathy could be related to her elevated BUN. She does have mildly elevated transaminases and bilirubin. In addition she is on large doses of chronic narcotic therapy which could also be contributing. Continue IV fluids. Continue home pain medication regiment, though at appropriate dosing intervals. Treatment of potential cellulitis with IV antibiotics. Supportive care. (2) Cellulitis Qualifiers: Site of cellulitis: extremity Site of cellulitis of extremity: lower extremity Laterality: left Qualified Code(s): L03.116 - Cellulitis of left lower limb Is this a current diagnosis for this admission?: Yes Plan: Not directly visualized; orthopedist notes cellulitic appearance of left lower extremity. As she also has an acute fracture, clear poor hygiene, now in a splint which would be an ideal setting for the development of cellulitis; will start antibiotic treatment. Patient is afebrile though with a WBC of 12.9. Blood cultures pending. Start cefazolin. (3) Closed left ankle fracture Qualifiers: Encounter type: initial encounter Qualified Code(s): S82.892A - Other fracture of left lower leg, initial encounter for closed fracture Is this a current diagnosis for this admission?: Yes Plan: Orthopedics is consulted. Primary management per Dr. Yuan. Per his note; will defer any surgical intervention for 2 to 3 days due to cellulitis-like appearance of left lower extremity. Cultures and antibiotics as above. (4) Chronic obstructive pulmonary disease Qualifiers: Chronic bronchitis type: unspecified Is this a current diagnosis for this admission?: Yes Plan: The patient has a history of COPD. Stable and without exacerbation at this time. Supplemental oxygen as needed. As needed nebulizer treatments. Encourage pulmonary toilet with incentive spirometer and flutter valve. No indications for steroid therapy at this time. (5) Dehydration Is this a current diagnosis for this admission?: Yes Plan: The patient reports that she was on the floor for hours and was unable to eat or drink. Her BUN and creatinine reflect a prerenal azotemia. Continue gentle IV fluids. Encourage p.o. fluids. Follow-up chemistries. (6) Elevated transaminase level Is this a current diagnosis for this admission?: Yes Plan: The patient had normal transaminases in December 2018. She did have blood work in September of this year. It reflected the beginnings of increased transaminase levels and bilirubin. Levels today are the highest yet. AST is higher than ALT although she reports no alcohol use. Serum EtOH was negative. Possibly related to dehydration and rhabdomyolysis. Continue IV fluids. Encourage p.o. fluids. Follow-up chemistry. Consider right upper quadrant ultrasound if does not improve. (7) Fall Qualifiers: Encounter type: initial encounter Qualified Code(s): W19.XXXA - Unspecified fall, initial encounter Is this a current diagnosis for this admission?: Yes Plan: Reviewing medical records the patient has had multiple falls in the past. She had multiple contusions. Imaging revealed a chronic misalignment with fracture of the right shoulder. There is a new left ankle fracture that will be addressed by Dr. Yuan of orthopedics. Likely related to the patient's narcotic prescriptions and self-disclosure that she takes her daily allotment all at 1 time. Fall precautions. Physical therapy consulted. (8) Hyperbilirubinemia Is this a current diagnosis for this admission?: Yes Plan: Please see above for treatment plan (9) Hyperglycemia due to diabetes mellitus Is this a current diagnosis for this admission?: Yes Plan: We will check A1c with a.m. lab work. Patient is placed on a consistent carb diet. Accu-Cheks before meals and at bedtime with Humalog for sliding scale coverage. Hypoglycemia protocol in place. (10) Rhabdomyolysis Qualifiers: Rhabdomyolysis type: traumatic Encounter type: initial encounter Qualified Code(s): T79.6XXA - Traumatic ischemia of muscle, initial encounter Is this a current diagnosis for this admission?: Yes Plan: The patient fell and was on the floor for hours. The creatinine kinase is elevated in the 800s. Continue IV fluids. Encourage p.o. fluids. Follow-up chemistry. (11) Chronically on opiate therapy Is this a current diagnosis for this admission?: Yes Plan: Through [facility] [place] [facility] [place] controlled substance database reviewed; patient is prescribed methadone 10 mg mg twice daily #60 and oxycodone 30 mg tab #45. She is placed on a regiment of methadone 10 mg twice daily and oxycodone 15 mg every 8 hours as needed - Time Time Spent with patient: 35 or more minutes Medications reviewed and adjusted accordingly: Yes Anticipated Discharge Disposition: undetermined Anticipated Discharge Timeframe: >72 hrs
[2020-02-01] MEDS: CEFAZOLIN 1 GM/D5W RTU 1 GM/50 ML RTUPB IV SCH (18:37)
[2020-02-02] MEDS: INSULIN LISPRO 100 UNIT/ML 3 ML VIAL SUBCUT SCH ×4 (00:19→18:26)
[2020-02-02] MEDS: CEFAZOLIN 1 GM/D5W RTU 1 GM/50 ML RTUPB IV SCH ×4 (00:28→17:59)
[2020-02-02] MEDS: METHADONE HCL 10 MG TABLET PO SCH ×4 (00:29→17:59)
[2020-02-02] MEDS: ACETAMINOPHEN 325 MG TABLET PO PRN (00:29)
--- NOTE | 2020-02-02 02:45 | EKG REPORT ---
SEVERITY:- ABNORMAL ECG - SINUS RHYTHM MULTIPLE ATRIAL PREMATURE COMPLEXES : Confirmed by: Konrad Luque MD 02-Feb-2020 02:45:15
[2020-02-02 06:03] LABS: ABSOLUTE BASOPHILS # (AUTO) 0.1 10^3/uL (0.0-0.2); ABSOLUTE EOSINOPHILS # (AUTO) 0.2 10^3/uL (0.0-0.6); ABSOLUTE LYMPHOCYTES (AUTO) 1.7 10^3/uL (0.5-4.7); ABSOLUTE MONOCYTES (AUTO) 0.6 10^3/uL (0.1-1.4); ABSOLUTE NEUT (AUTO) 4.3 10^3/uL (1.7-8.2); BASOPHILS % (AUTO) 0.9 % (0-2); EOSINOPHILS % (AUTO) 2.6 % (0-6); HEMATOCRIT 25.9 % (36.0-47.0); LYMPHOCYTES % (AUTO) 24.9 % (13-45); MEAN CORPUSCULAR HEMOGLOBIN 26.2 pg (27.0-33.4); MEAN CORPUSCULAR HGB CONC 32.5 g/dL (32.0-36.0); MEAN CORPUSCULAR VOLUME 81 fl (80-97); MONOCYTES % (AUTO) 8.5 % (3-13); PLATELET COUNT 142 10^3/uL (150-450); RED BLOOD COUNT 3.21 10^6/uL (3.72-5.28); RED CELL DISTRIBUTION WIDTH 16.4 % (11.5-14.0); SEGMENTED NEUTROPHILS % (AUTO) 63.1 % (42-78); TOTAL CELLS COUNTED % (AUTO) 100 %; WHITE BLOOD COUNT 6.8 10^3/uL (4.0-10.5)
[2020-02-02 06:04] LABS: HEMOGLOBIN 8.4 g/dL (12.0-15.5)
[2020-02-02] MEDS: NORMAL SALINE 1000 ML 1,000 ML IV PRN (06:18)
[2020-02-02] MEDS: GABAPENTIN 300 MG CAPSULE PO SCH ×3 (06:18→21:54)
[2020-02-02] MEDS: OXYCODONE HCL IR 5 MG TABLET PO PRN (06:20)
[2020-02-02] MEDS: HEPARIN SOD (PORCINE) 5,000 UNIT/ML 1 ML VIAL SUBCUT SCH ×3 (06:21→21:55)
[2020-02-02 06:27] LABS: ALBUMIN 2.7 g/dL (3.5-5.0); ALKALINE PHOSPHATASE 78 U/L (38-126); ANION GAP 6 (5-19); ASPARTATE AMINO TRANSFERASE 48 U/L (14-36); BILIRUBIN,DIRECT 0.3 mg/dL (0.0-0.4); BILIRUBIN,TOTAL 0.7 mg/dL (0.2-1.3); BLOOD UREA NITROGEN 18 mg/dL (7-20); CALCIUM 7.8 mg/dL (8.4-10.2); CARBON DIOXIDE 23 mmol/L (22-30); CHLORIDE 107 mmol/L (98-107); CREATINE KINASE 200 U/L (30-135); GLUCOSE 82 mg/dL (75-110); POTASSIUM 3.8 mmol/L (3.6-5.0); TOTAL PROTEIN 5.5 g/dL (6.3-8.2)
[2020-02-02 09:07] LABS: IRON(TIBC) 11.9 ug/dL (37-170)
[2020-02-02 09:17] LABS: ABSOLUTE RETICS # 0.081 10^6/uL (0.028-0.122); RETICULOCYTE COUNT (AUTO) 2.53 % (0.66-2.85)
[2020-02-02] MEDS ORDERED: OXYCODONE HCL IR 5 MG TABLET PO PRN (09:38)
[2020-02-02] MEDS: FAMOTIDINE 20 MG TABLET PO SCH ×2 (10:53→21:54)
[2020-02-02] MEDS: PREDNISONE 5 MG TABLET PO SCH ×2 (10:53→18:25)
[2020-02-02] MEDS: BACLOFEN 10 MG TABLET PO SCH ×2 (10:53→21:55)
[2020-02-02] MEDS: NADOLOL 40 MG TABLET PO SCH ×2 (10:53→21:54)
[2020-02-02] MEDS: DOCUSATE SODIUM 100 MG CAPSULE PO SCH ×2 (10:53→17:59)
[2020-02-02] MEDS ORDERED: IRON SUCROSE COMPLEX 100 MG in NORMAL SALINE 100 ML IV ONE (19:48)
--- NOTE | 2020-02-02 19:55 | PDOC PROGRESS REPORT ---
Subjective Progress Note for:: 02/02/20 Subjective:: The patient is a 64-year-old female with a past medical history of hypertension, COPD, DM 2, ulcerative colitis, chronic pain, tobacco dependency, and opiate dependent chronic pain who was admitted 02/01/2020 for Metabolic encephalopathy, multiple falls, mild rhabdomyolysis, and a closed left ankle fracture. Patient was seen on morning rounds. She was found resting in bed, comfortably, on room air. Was sleeping but woke easily when I said her name. She is A&O x4. She is somewhat forgetful, although, much improved as compared to yesterday. I believe this is now her baseline mentation. She reports continued lower leg pain; request slight increase in her as needed medications. Otherwise her primary concern is resuming her home medication regiment; specifi julia her prednisone for her history of Crohn's disease. She has no other questions or concerns at this time. She denies fever, chills, chest pain, palpitations, dyspnea, abdominal pain. No concerns per nursing. Reason For Visit: LEFT ANKLE FRACTURE,CHRONIC PAIN,ARRHYTHMIA, Physical Exam Vital Signs: Temp Pulse Resp BP Pulse Ox 99.6 F 83 17 146/49 H 93 02/02/20 15:31 02/02/20 15:31 02/02/20 15:31 02/02/20 15:31 02/02/20 15:31 Intake & Output 02/01/20 02/02/20 02/03/20 06:59 06:59 06:59 Intake Total 100 2935 612 Output Total 117 664 0257 Balance -200 2060 -413 Weight 70.4 kg 71.8 kg General appearance: PRESENT: no acute distress, cooperative, well-developed, well-nourished Head exam: PRESENT: atraumatic, normocephalic Eye exam: PRESENT: conjunctiva pink, EOMI, PERRLA. ABSENT: scleral icterus Mouth exam: PRESENT: moist, tongue midline Teeth exam: PRESENT: poor dentation Respiratory exam: PRESENT: clear to auscultation char, symmetrical, unlabored. ABSENT: rales, rhonchi, wheezes Cardiovascular exam: PRESENT: RRR. ABSENT: diastolic murmur, rubs, systolic murmur Vascular exam: PRESENT: normal capillary refill Extremities exam: PRESENT: tenderness - LLE; distal P/M/S intact. ABSENT: calf tenderness, clubbing, pedal edema Neurological exam: PRESENT: alert, awake, oriented to person, oriented to place, oriented to time, oriented to situation, CN II-XII grossly intact. ABSENT: motor sensory deficit Psychiatric exam: PRESENT: appropriate affect, normal mood. ABSENT: homicidal ideation, suicidal ideation Skin exam: PRESENT: dry, intact, warm, other - numerous, large, bruises in various stages of healing. ABSENT: cyanosis, rash Results Laboratory Results: 02/02/20 04:58 02/02/20 04:58 02/02/20 02/02/20 02/02/20 04:58 04:58 04:58 WBC 6.8 RBC 3.21 L Hgb 8.4 L D Hct 25.9 L MCV 81 MCH 26.2 L MCHC 32.5 RDW 16.4 H Plt Count 142 L Seg Neutrophils % 63.1 Retic Count (auto) Sodium 136.3 L Potassium 3.8 Chloride 107 Carbon Dioxide 23 Anion Gap 6 BUN 18 Creatinine 0.76 Est GFR ( Amer) > 60 Glucose 82 Calcium 7.8 L Magnesium 1.5 L Iron 11.9 L TIBC 287 % Saturation 4 Ferritin 119.00 Total Bilirubin 0.7 AST 48 H Alkaline Phosphatase 78 Total Protein 5.5 L Albumin 2.7 L Vitamin B12 993.0 H Folate 12.80 02/02/20 04:58 WBC RBC Hgb Hct MCV MCH MCHC RDW Plt Count Seg Neutrophils % Retic Count (auto) 2.53 Sodium Potassium Chloride Carbon Dioxide Anion Gap BUN Creatinine Est GFR ( Amer) Glucose Calcium Magnesium Iron TIBC % Saturation Ferritin Total Bilirubin AST Alkaline Phosphatase Total Protein Albumin Vitamin B12 Folate 01/31/20 02/02/20 23:45 04:58 Creatine Kinase 810 H 200 H Impressions: Chest X-Ray 02/01/20 00:00 IMPRESSION: 1. Blunting of left costophrenic angle may indicate a small left pleural effusion versus pleural parenchymal scarring. 2. Diffusely decreased bone mineral density. Fracture deformity of the right proximal humerus is incompletely evaluated with this technique, detailed on prior CT October 17, 2019. Stable left rib fracture deformities are again noted. Facial Bones CT 02/01/20 00:04 IMPRESSION: No acute bony injury is seen to the face. Head CT 02/01/20 00:04 IMPRESSION: No acute intracranial process is identified. Cervical Spine CT 02/01/20 00:06 IMPRESSION: No acute findings. Tibia/Fibula X-Ray 02/01/20 00:06 IMPRESSION: No acute bony injury to the proximal leg. Ankle has been imaged separately. Ankle X-Ray 02/01/20 02:40 IMPRESSION: Mildly improved alignment. Humerus X-Ray 02/01/20 03:44 IMPRESSION: Fracture deformity of the right proximal humerus again demonstrated. Alignment of the glenohumeral joint is difficult to assess on this exam. No obvious acute fracture visualized. Assessment and Plan - Diagnosis (1) Metabolic encephalopathy Is this a current diagnosis for this admission?: Yes Plan: Resolved; patient is alert and oriented x4 Her encephalopathy could be related to her elevated BUN. She does have mildly elevated transaminases and bilirubin. In addition she is on large doses of chronic narcotic therapy which could also be contributing. Continue IV fluids. Continue home pain medication regiment, though at appropriate dosing intervals. Treatment of potential cellulitis with IV antibiotics. Supportive care. (2) Cellulitis Qualifiers: Site of cellulitis: extremity Site of cellulitis of extremity: lower extremity Laterality: left Qualified Code(s): L03.116 - Cellulitis of left lower limb Is this a current diagnosis for this admission?: Yes Plan: Not directly visualized; orthopedist notes cellulitic appearance of left lower extremity. As she also has an acute fracture, clear poor hygiene, now in a splint which would be an ideal setting for the development of cellulitis; will start antibiotic treatment. Patient is afebrile, leukocytosis has resolved Blood cultures negative at 24 hours Continue cefazolin; day #2 (3) Closed left ankle fracture Qualifiers: Encounter type: initial encounter Qualified Code(s): S82.892A - Other fracture of left lower leg, initial encounter for closed fracture Is this a current diagnosis for this admission?: Yes Plan: Orthopedics is consulted. Primary management per Dr. Yuan. Per his note; will defer any surgical intervention for 2 to 3 days due to cellulitis-like appearance of left lower extremity. Cultures and antibiotics as above. (4) Chronic obstructive pulmonary disease Qualifiers: Chronic bronchitis type: unspecified Is this a current diagnosis for this admission?: Yes Plan: The patient has a history of COPD. Stable and without exacerbation at this time. Supplemental oxygen as needed. As needed nebulizer treatments. Encourage pulmonary toilet with incentive spirometer and flutter valve. No indications for steroid therapy at this time. (5) Dehydration Is this a current diagnosis for this admission?: Yes Plan: Resolved. The patient reports that she was on the floor for hours and was unable to eat or drink. Her BUN and creatinine reflect a prerenal azotemia. Continue gentle IV fluids. Encourage p.o. fluids. Follow-up chemistries. (6) Elevated transaminase level Is this a current diagnosis for this admission?: Yes Plan: The patient had normal transaminases in December 2018. She did have blood work in September of this year. It reflected the beginnings of increased transaminase levels and bilirubin. Levels today are the highest yet. AST is higher than ALT although she reports no alcohol use. Serum EtOH was negative. Possibly related to dehydration and rhabdomyolysis. Continue IV fluids. Encourage p.o. fluids. Follow-up chemistry. Consider right upper quadrant ultrasound if does not improve. (7) Fall Qualifiers: Encounter type: initial encounter Qualified Code(s): W19.XXXA - Unspecified fall, initial encounter Is this a current diagnosis for this admission?: Yes Plan: Reviewing medical records the patient has had multiple falls in the past. She had multiple contusions. Imaging revealed a chronic misalignment with fracture of the right shoulder. There is a new left ankle fracture that will be addressed by Dr. Yuan of orthopedics. Likely related to the patient's narcotic prescriptions and self-disclosure that she takes her daily allotment all at 1 time. Fall precautions. Physical therapy consulted. (8) Hyperbilirubinemia Is this a current diagnosis for this admission?: Yes Plan: Please see above for treatment plan (9) Hyperglycemia due to diabetes mellitus Is this a current diagnosis for this admission?: Yes Plan: We will check A1c with a.m. lab work. Patient is placed on a consistent carb diet. Accu-Cheks before meals and at bedtime with Humalog for sliding scale coverage. Hypoglycemia protocol in place. (10) Rhabdomyolysis Qualifiers: Rhabdomyolysis type: traumatic Encounter type: initial encounter Qualified Code(s): T79.6XXA - Traumatic ischemia of muscle, initial encounter Is this a current diagnosis for this admission?: Yes Plan: Resolved. The patient fell and was on the floor for hours. CK 800->200 Continue IV fluids. Encourage p.o. fluids. Follow-up chemistry. (11) Chronically on opiate therapy Is this a current diagnosis for this admission?: Yes Plan: Through [facility] [place] controlled substance database reviewed; patient is prescribed methadone 10 mg mg twice daily #60 and oxycodone 30 mg tab #45. She is placed on a regiment of methadone 10 mg twice daily and oxycodone 15 mg every 8 hours Will allow for oxycodone 5 mg every 6 hours as needed breakthrough pain seco ndary to her acute left leg fracture - Time Time Spent with patient: 25-34 minutes Medications reviewed and adjusted accordingly: Yes Anticipated Discharge Disposition: Home, Self Care Anticipated Discharge Timeframe: within 24 hours - Pending Ortho clearance
[2020-02-02] MEDS: ONDANSETRON HCL INJ/PF 4 MG/2 ML SDV IV PRN (21:59)
[2020-02-02] MEDS ORDERED: IRON SUCROSE COMPLEX INJ/PF 100 MG/5 ML SDV IV ONE (22:00)
[2020-02-02] MEDS: OXYCODONE-ACETAMINOPHEN 5-325 MG TABLET PO PRN (23:01)
[2020-02-03] MEDS: METHADONE HCL 10 MG TABLET PO SCH ×3 (00:18→22:13)
[2020-02-03] MEDS: CEFAZOLIN 1 GM/D5W RTU 1 GM/50 ML RTUPB IV SCH ×4 (00:19→17:33)
[2020-02-03] MEDS: INSULIN LISPRO 100 UNIT/ML 3 ML VIAL SUBCUT SCH ×4 (00:46→17:32)
[2020-02-03] MEDS: GABAPENTIN 300 MG CAPSULE PO SCH ×4 (05:04→22:14)
[2020-02-03] MEDS: HEPARIN SOD (PORCINE) 5,000 UNIT/ML 1 ML VIAL SUBCUT SCH ×3 (05:06→22:14)
[2020-02-03 05:32] LABS: HEMATOCRIT 27.8 % (36.0-47.0); HEMOGLOBIN 9.2 g/dL (12.0-15.5); MEAN CORPUSCULAR HEMOGLOBIN 26.5 pg (27.0-33.4); MEAN CORPUSCULAR VOLUME 80 fl (80-97); PLATELET COUNT 148 10^3/uL (150-450); RED BLOOD COUNT 3.46 10^6/uL (3.72-5.28); RED CELL DISTRIBUTION WIDTH 16.4 % (11.5-14.0); WHITE BLOOD COUNT 5.2 10^3/uL (4.0-10.5)
[2020-02-03 05:50] LABS: ALBUMIN 2.9 g/dL (3.5-5.0); ALKALINE PHOSPHATASE 80 U/L (38-126); ASPARTATE AMINO TRANSFERASE 39 U/L (14-36); BILIRUBIN,DIRECT 0.3 mg/dL (0.0-0.4); BILIRUBIN,TOTAL 0.6 mg/dL (0.2-1.3); BLOOD UREA NITROGEN 11 mg/dL (7-20); CALCIUM 8.1 mg/dL (8.4-10.2); CARBON DIOXIDE 25 mmol/L (22-30); CREATINE KINASE 96 U/L (30-135); GLUCOSE 85 mg/dL (75-110); POTASSIUM 3.7 mmol/L (3.6-5.0); TOTAL PROTEIN 5.8 g/dL (6.3-8.2)
[2020-02-03 05:56] LABS: ANION GAP 7 (5-19); CHLORIDE 109 mmol/L (98-107)
--- NOTE | 2020-02-03 08:20 | PDOC PROGRESS REPORT ---
Subjective Progress Note for:: 02/03/20 Subjective:: Patient doing well this morning. No acute events overnight. Left lower extremity pain is adequately controlled on current pain medications. Reason For Visit: LEFT ANKLE FRACTURE,CHRONIC PAIN,ARRHYTHMIA, Physical Exam Vital Signs: Temp Pulse Resp BP Pulse Ox 99.2 F 67 17 117/44 L 94 02/02/20 23:44 02/03/20 07:00 02/02/20 23:44 02/02/20 23:44 02/02/20 23:44 Intake & Output 02/02/20 02/03/20 02/04/20 06:59 06:59 06:59 Intake Total 2935 1242 Output Total 875 1925 Balance 2059 - Weight 71.8 kg 72.6 kg Physical Exam: No acute distress, alert and orient x3 Left lower extremity. Neurovascular intact Splint was partially taken down in order to evaluate for soft tissue window. There is fracture blisters present on the dorsum of the foot with severe ecchymosis on the medial and lateral aspect of the ankle. It is not currently acceptable for operative intervention. -Cellulitic appearing much improved. Results Laboratory Results: 02/03/20 04:35 02/03/20 04:35 02/02/20 02/02/20 02/03/20 04:58 04:58 04:35 WBC 5.2 RBC 3.46 L Hgb 9.2 L Hct 27.8 L MCV 80 MCH 26.5 L MCHC 33.0 RDW 16.4 H Plt Count 148 L Retic Count (auto) 2.53 Sodium Potassium Chloride Carbon Dioxide Anion Gap BUN Creatinine Est GFR ( Amer) Glucose Calcium Iron 11.9 L TIBC 287 % Saturation 4 Ferritin 119.00 Total Bilirubin AST Alkaline Phosphatase Total Protein Albumin Vitamin B12 993.0 H Folate 12.80 02/03/20 04:35 WBC RBC Hgb Hct MCV MCH MCHC RDW Plt Count Retic Count (auto) Sodium 141.3 Potassium 3.7 Chloride 109 H Carbon Dioxide 25 Anion Gap 7 BUN 11 Creatinine 0.70 Est GFR ( Amer) > 60 Glucose 85 Calcium 8.1 L Iron TIBC % Saturation Ferritin Total Bilirubin 0.6 AST 39 H Alkaline Phosphatase 80 Total Protein 5.8 L Albumin 2.9 L Vitamin B12 Folate 01/31/20 02/02/20 02/03/20 23:45 04:58 04:35 Creatine Kinase 810 H 200 H 96 Impressions: Chest X-Ray 02/01/20 00:00 IMPRESSION: 1. Blunting of left costophrenic angle may indicate a small left pleural effusion versus pleural parenchymal scarring. 2. Diffusely decreased bone mineral density. Fracture deformity of the right proximal humerus is incompletely evaluated with this technique, detailed on prior CT October 17, 2019. Stable left rib fracture deformities are again noted. Facial Bones CT 02/01/20 00:04 IMPRESSION: No acute bony injury is seen to the face. Head CT 02/01/20 00:04 IMPRESSION: No acute intracranial process is identified. Cervical Spine CT 02/01/20 00:06 IMPRESSION: No acute findings. Tibia/Fibula X-Ray 02/01/20 00:06 IMPRESSION: No acute bony injury to the proximal leg. Ankle has been imaged separately. Ankle X-Ray 02/01/20 02:40 IMPRESSION: Mildly improved alignment. Humerus X-Ray 02/01/20 03:44 IMPRESSION: Fracture deformity of the right proximal humerus again demonstrated. Alignment of the glenohumeral joint is difficult to assess on this exam. No obvious acute fracture visualized. Assessment & Plan - Diagnosis (1) Closed trimalleolar fracture of left ankle Is this a current diagnosis for this admission?: Yes Plan: -Patient potentially will be discharged in her splint for follow-up in the office and consideration of operative intervention at a later date. -Will discuss with hospitalist team -If still in house this coming will consider external fixator application pending soft tissue window. Evaluation this morning deems soft tissue not to be adequately resolved in order to allow operative intervention. (2) Closed fracture of right proximal humerus Is this a current diagnosis for this admission?: Yes - Time Time Spent with patient: Less than 15 minutes
[2020-02-03] MEDS: ACETAMINOPHEN 325 MG TABLET PO PRN (08:53)
[2020-02-03] MEDS: BACLOFEN 10 MG TABLET PO SCH ×2 (10:07→22:13)
[2020-02-03] MEDS: FAMOTIDINE 20 MG TABLET PO SCH ×2 (10:07→22:13)
[2020-02-03] MEDS: DOCUSATE SODIUM 100 MG CAPSULE PO SCH ×2 (10:07→17:32)
[2020-02-03] MEDS: NADOLOL 40 MG TABLET PO SCH ×2 (10:09→22:13)
[2020-02-03] MEDS: PREDNISONE 5 MG TABLET PO SCH ×2 (10:09→17:34)
--- NOTE | 2020-02-03 10:09 | PDOC PROGRESS REPORT ---
Subjective Progress Note for:: 02/03/20 Subjective:: Resting in bed. Requesting more pain medication. We discussed the importance of working with physical therapy. She started making excuses about poor balance. I told her that is exactly why she should work with physical therapy. Per Dr. Yuan no application of external fixator yet. Reason For Visit: LEFT ANKLE FRACTURE,CHRONIC PAIN,ARRHYTHMIA, Physical Exam Vital Signs: Temp Pulse Resp BP Pulse Ox 99.2 F 67 17 117/44 L 94 02/02/20 23:44 02/03/20 07:00 02/02/20 23:44 02/02/20 23:44 02/02/20 23:44 Intake & Output 02/02/20 02/03/20 02/04/20 06:59 06:59 06:59 Intake Total 2935 1242 Output Total 875 1925 Balance 2059 - Weight 71.8 kg 72.6 kg General appearance: PRESENT: cooperative, mild distress, well-developed Head exam: PRESENT: atraumatic, normocephalic Eye exam: PRESENT: conjunctiva pale. ABSENT: scleral icterus Ear exam: PRESENT: normal external ear exam. ABSENT: bleeding, drainage Mouth exam: PRESENT: moist, tongue midline Respiratory exam: PRESENT: rales - Faint rales, symmetrical, unlabored. ABSENT: rhonchi, tachypnea, wheezes Cardiovascular exam: PRESENT: RRR, +S1, +S2. ABSENT: bradycardia, diastolic murmur, irregular rhythm, systolic murmur, tachycardia GI/Abdominal exam: PRESENT: normal bowel sounds, soft. ABSENT: distended, tenderness Rectal exam: PRESENT: deferred Extremities exam: PRESENT: joint swelling - Left ankle. ABSENT: pedal edema Musculoskeletal exam: PRESENT: other - Left ankle in cast with soft tissue window cut out. ABSENT: ambulatory Neurological exam: PRESENT: alert, awake, oriented to person, oriented to place, oriented to time, oriented to situation, CN II-XII grossly intact. ABSENT: altered Psychiatric exam: PRESENT: flat affect. ABSENT: agitated, anxious Focused psych exam: ABSENT: delusional, paranoid, restlessness Skin exam: PRESENT: dry, warm, other - Serosanguineous bullae on the left foot. Multiple purplish areas on the anterior freedman. 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 Results Laboratory Results: 02/03/20 04:35 02/03/20 04:35 02/02/20 02/03/20 02/03/20 04:58 04:35 04:35 WBC 5.2 RBC 3.46 L Hgb 9.2 L Hct 27.8 L MCV 80 MCH 26.5 L MCHC 33.0 RDW 16.4 H Plt Count 148 L Sodium 141.3 Potassium 3.7 Chloride 109 H Carbon Dioxide 25 Anion Gap 7 BUN 11 Creatinine 0.70 Est GFR ( Amer) > 60 Glucose 85 Calcium 8.1 L Iron 11.9 L TIBC 287 % Saturation 4 Ferritin 119.00 Total Bilirubin 0.6 AST 39 H Alkaline Phosphatase 80 Total Protein 5.8 L Albumin 2.9 L Vitamin B12 993.0 H Folate 12.80 01/31/20 02/02/20 02/03/20 23:45 04:58 04:35 Creatine Kinase 810 H 200 H 96 Impressions: Chest X-Ray 02/01/20 00:00 IMPRESSION: 1. Blunting of left costophrenic angle may indicate a small left pleural effusion versus pleural parenchymal scarring. 2. Diffusely decreased bone mineral density. Fracture deformity of the right proximal humerus is incompletely evaluated with this technique, detailed on prior CT October 17, 2019. Stable left rib fracture deformities are again noted. Facial Bones CT 02/01/20 00:04 IMPRESSION: No acute bony injury is seen to the face. Head CT 02/01/20 00:04 IMPRESSION: No acute intracranial process is identified. Cervical Spine CT 02/01/20 00:06 IMPRESSION: No acute findings. Tibia/Fibula X-Ray 02/01/20 00:06 IMPRESSION: No acute bony injury to the proximal leg. Ankle has been imaged separately. Ankle X-Ray 02/01/20 02:40 IMPRESSION: Mildly improved alignment. Humerus X-Ray 02/01/20 03:44 IMPRESSION: Fracture deformity of the right proximal humerus again demonstrated. Alignment of the glenohumeral joint is difficult to assess on this exam. No obvious acute fracture visualized. Assessment and Plan - Diagnosis (1) Metabolic encephalopathy Is this a current diagnosis for this admission?: Yes (2) Fall Qualifiers: Encounter type: initial encounter Qualified Code(s): W19.XXXA - Unspecified fall, initial encounter Is this a current diagnosis for this admission?: Yes (3) Closed left ankle fracture Qualifiers: Encounter type: initial encounter Qualified Code(s): S82.892A - Other fracture of left lower leg, initial encounter for closed fracture Is this a current diagnosis for this admission?: Yes (4) Rhabdomyolysis Qualifiers: Rhabdomyolysis type: traumatic Encounter type: initial encounter Qualified Code(s): T79.6XXA - Traumatic ischemia of muscle, initial encounter Is this a current diagnosis for this admission?: Yes (5) Dehydration Is this a current diagnosis for this admission?: Yes (6) Elevated transaminase level Is this a current diagnosis for this admission?: Yes (7) Hyperbilirubinemia Is this a current diagnosis for this admission?: Yes (8) Cellulitis Qualifiers: Site of cellulitis: extremity Site of cellulitis of extremity: lower extremity Laterality: left Qualified Code(s): L03.116 - Cellulitis of left l ower limb Is this a current diagnosis for this admission?: Yes (9) Hyperglycemia due to diabetes mellitus Is this a current diagnosis for this admission?: Yes (10) Intractable back pain Is this a current diagnosis for this admission?: Yes (11) Chronically on opiate therapy Is this a current diagnosis for this admission?: Yes (12) Chronic obstructive pulmonary disease Qualifiers: Chronic bronchitis type: unspecified Is this a current diagnosis for this admission?: Yes (13) Atelectasis Is this a current diagnosis for this admission?: Yes Plan: Patient is not very active. Most likely atelectasis. She does have a flutter valve and incentive from at her at the bedside. I encouraged her to use both. (14) Positive blood culture Is this a current diagnosis for this admission?: Yes - Plan Summary Summary: 02/03/2020 Admitted the patient therefore am familiar with her case. I also discussed the case with Dr. Yuan today. The best case scenario would be detention for rehab and protecting the left ankle. The front of the cast has been cut open to create a window to look at the skin. There is erythema but the patient has been on antibiotics. She did have 1 blood culture bottle positive but this may likely be a contaminant. She still complains of pain in the ankle. The possibility of infection/cellu litis in the leg does not allow safe application of an external fixator. Ideally the patient should go to rehab for several weeks to regain strength and improve her balance and then orthopedic surgery can provide more definitive treatment for the unstable ankle fracture. Contact was made with her chronic pain management providers. She is currently on a regimen of their suggestion. She also needs to start participating in physical therapy since she does fall a lot at home. Some of this might be due to her medications. - Time Time Spent with patient: 15-24 minutes Medications reviewed and adjusted accordingly: Yes Anticipated Discharge Disposition: Intermediate Facility Anticipated Discharge Timeframe: within 72 hours
[2020-02-03] MEDS: OXYCODONE-ACETAMINOPHEN 5-325 MG TABLET PO PRN ×2 (11:45→17:58)
[2020-02-03] MEDS: OXYCODONE HCL IR 5 MG TABLET PO SCH ×3 (15:12→22:12)
[2020-02-03] MEDS: NORMAL SALINE 1000 ML 1,000 ML IV PRN (17:33)
[2020-02-04] MEDS: CEFAZOLIN 1 GM/D5W RTU 1 GM/50 ML RTUPB IV SCH ×5 (00:03→23:31)
[2020-02-04] MEDS: INSULIN LISPRO 100 UNIT/ML 3 ML VIAL SUBCUT SCH ×4 (00:06→17:42)
[2020-02-04] MEDS: OXYCODONE-ACETAMINOPHEN 5-325 MG TABLET PO PRN ×4 (00:24→22:34)
[2020-02-04] MEDS: OXYCODONE HCL IR 5 MG TABLET PO SCH ×3 (05:21→21:17)
[2020-02-04] MEDS: GABAPENTIN 300 MG CAPSULE PO SCH ×3 (05:21→21:16)
[2020-02-04] MEDS: HEPARIN SOD (PORCINE) 5,000 UNIT/ML 1 ML VIAL SUBCUT SCH ×3 (05:24→21:17)
[2020-02-04] MEDS: NADOLOL 40 MG TABLET PO SCH ×2 (09:37→21:16)
[2020-02-04] MEDS: BACLOFEN 10 MG TABLET PO SCH ×2 (09:37→21:15)
[2020-02-04] MEDS: PREDNISONE 5 MG TABLET PO SCH ×2 (09:37→17:43)
[2020-02-04] MEDS: DOCUSATE SODIUM 100 MG CAPSULE PO SCH ×2 (09:37→17:40)
[2020-02-04] MEDS: FAMOTIDINE 20 MG TABLET PO SCH ×2 (09:37→21:16)
[2020-02-04] MEDS: METHADONE HCL 10 MG TABLET PO SCH ×2 (09:38→21:16)
--- NOTE | 2020-02-04 15:03 | PDOC PROGRESS REPORT ---
Subjective Progress Note for:: 02/04/20 Subjective:: The patient is resting comfortably. Patient's nurse reports that she keeps unwrapping the dressing keeping the cast padding intact over her left foot. She also is not very compliant with the ice packs. She was pleased to find that 1 of her friends may take care of her dog while she is at skilled prior to her surgery. Reason For Visit: LEFT ANKLE FRACTURE,CHRONIC PAIN,ARRHYTHMIA, Physical Exam Vital Signs: Temp Pulse Resp BP Pulse Ox 98.6 F 75 17 131/51 H 100 02/04/20 10:00 02/04/20 14:00 02/04/20 08:44 02/04/20 08:44 02/04/20 08:44 Intake & Output 02/03/20 02/04/20 02/05/20 06:59 06:59 06:59 Intake Total 1242 2268 530 Output Total 1925 Balance -683 2268 530 Weight 72.6 kg 72.6 kg General appearance: PRESENT: no acute distress, cooperative, well-developed Head exam: PRESENT: atraumatic, normocephalic Eye exam: PRESENT: conjunctiva pink. ABSENT: scleral icterus Ear exam: PRESENT: normal external ear exam. ABSENT: bleeding, drainage Mouth exam: PRESENT: moist, tongue midline Respiratory exam: PRESENT: clear to auscultation char, symmetrical, unlabored. ABSENT: rales, rhonchi, tachypnea, wheezes Cardiovascular exam: PRESENT: RRR, +S1, +S2, systolic murmur - 2/6. ABSENT: bradycardia, diastolic murmur, irregular rhythm, tachycardia GI/Abdominal exam: PRESENT: normal bowel sounds, soft. ABSENT: distended, g uarding, tenderness Rectal exam: PRESENT: deferred Gentrourinary exam: ABSENT: indwelling catheter Extremities exam: PRESENT: pedal edema - The foot is slightly puffy today. It could be that it was in a dependent position earlier. It is important to maintain some type of wrap. The skin actually looks slightly more red pr oximally. The bullous lesion on the foot remains intact., other Musculoskeletal exam: PRESENT: other - Left lower leg cast with soft tissue window Neurological exam: PRESENT: alert, awake Psychiatric exam: PRESENT: appropriate affect. ABSENT: agitated, anxious Focused psych exam: ABSENT: delusional, paranoid, restlessness Skin exam: PRESENT: erythema - Still with erythema anterior aspect lower leg above the ankle and blister lesion dorsum of foot Results Laboratory Results: 02/03/20 04:35 02/03/20 04:35 01/31/20 23:45 Blood Blood Culture (PCR) - Final 01/31/20 23:45 Blood Blood Culture - Final Micrococcus Species 01/31/20 02/02/20 02/03/20 23:45 04:58 04:35 Creatine Kinase 810 H 200 H 96 Impressions: Chest X-Ray 02/01/20 00:00 IMPRESSION: 1. Blunting of left costophrenic angle may indicate a small left pleural effusion versus pleural parenchymal scarring. 2. Diffusely decreased bone mineral density. Fracture deformity of the right proximal humerus is incompletely evaluated with this technique, detailed on prior CT October 17, 2019. Stable left rib fracture deformities are again noted. Facial Bones CT 02/01/20 00:04 IMPRESSION: No acute bony injury is seen to the face. Head CT 02/01/20 00:04 IMPRESSION: No acute intracranial process is identified. Cervical Spine CT 02/01/20 00:06 IMPRESSION: No acute findings. Tibia/Fibula X-Ray 02/01/20 00:06 IMPRESSION: No acute bony injury to the proximal leg. Ankle has been imaged separately. Ankle X-Ray 02/01/20 02:40 IMPRESSION: Mildly improved alignment. Humerus X-Ray 02/01/20 03:44 IMPRESSION: Fracture deformity of the right proximal humerus again demonstrated. Alignment of the glenohumeral joint is difficult to assess on this exam. No obvious acute fracture visualized. Assessment and Plan - Diagnosis (1) Metabolic encephalopathy Is this a current diagnosis for this admission?: Yes (2) Fall Qualifiers: Encounter type: initial encounter Qualified Code(s): W19.XXXA - Unspecified fall, initial encounter Is this a current diagnosis for this admission?: Yes (3) Closed left ankle fracture Qualifiers: Encounter type: initial encounter Qualified Code(s): S82.892A - Other fracture of left lower leg, initial encounter for closed fracture Is this a current diagnosis for this admission?: Yes (4) Rhabdomyolysis Qualifiers: Rhabdomyolysis type: traumatic Encounter type: initial encounter Qualified Code(s): T79.6XXA - Traumatic ischemia of muscle, initial encounter Is this a current diagnosis for this admission?: Yes (5) Dehydration Is this a current diagnosis for this admission?: Yes (6) Elevated transaminase level Is this a current diagnosis for this admission?: Yes (7) Hyperbilirubinemia Is this a current diagnosis for this admission?: Yes (8) Cellulitis Qualifiers: Site of cellulitis: extremity Site of cellulitis of extremity: lower extremity Laterality: left Qualified Code(s): L03.116 - Cellulitis of left lower limb Is this a current diagnosis for this admission?: Yes (9) Hyperglycemia due to diabetes mellitus Is this a current diagnosis for this admission?: Yes (10) Intractable back pain Is this a current diagnosis for this admission?: Yes (11) Chronically on opiate therapy Is this a current diagnosis for this admission?: Yes (12) Chronic obstructive pulmonary disease Qualifiers: Chronic bronchitis type: unspecified Is this a current diagnosis for this admission?: Yes (13) Atelectasis Is this a current diagnosis for this admission?: Yes (14) Positive blood culture Is this a current diagnosis for this admission?: Yes - Plan Summary Summary: 02/03/2020 Admitted the patient therefore am familiar with her case. I also discussed the case with Dr. Yuan today. The best case scenario would be [facility] for rehab and protecting the left ankle. The front of the cast has been cut open to create a window to look at the skin. There is erythema but the patient has been on antibiotics. She did have 1 blood culture bottle positive but this may likely be a contaminant. She still complains of pain in the ankle. The possibility of infection/c ellulitis in the leg does not allow safe application of an external fixator. Ideally the patient should go to rehab for several weeks to regain strength and improve her balance and then orthopedic surgery can provide more definitive treatment for the unstable ankle fracture. Contact was made with her chronic pain management providers. She is currently on a regimen of their suggestion. She also needs to start participating in physical therapy since she does fall a lot at home. Some of this might be due to her medications. 02/04/2020 The patient was actually complementary of the physical therapist today. Now that she has someone to watch her dog she is amenable to short-term rehab prior to definitive surgery for her ankle. She has had multiple falls in the past. This certainly could be related to pain medication, clutter in the apartment with high risk areas for falls and poor gait. The patient will need rehab to strengthen and improve her balance. She currently is nonweightbearing for the left leg. This stronger she can get before surgery the better. She in fact should be able to go to short-term rehab as soon as a bed is available with surgery scheduled per Dr. Yuan. [id number] have been stable. Continue current regimen. Hypertension-blood pressures are still quite variable. This may likely be due to variations in pain. Not enough consistency to alter medication regimen at this point. - Time Time Spent with patient: 15-24 minutes Medications reviewed and adjusted accordingly: Yes Anticipated Discharge Disposition: Nursing Home Facility Anticipated Discharge Timeframe: within 48 hours
[2020-02-04] MEDS: NORMAL SALINE 1000 ML 1,000 ML IV PRN (17:44)
[2020-02-05] MEDS: INSULIN LISPRO 100 UNIT/ML 3 ML VIAL SUBCUT SCH ×4 (03:17→17:45)
[2020-02-05] MEDS: OXYCODONE-ACETAMINOPHEN 5-325 MG TABLET PO PRN ×4 (03:36→22:52)
[2020-02-05] MEDS ORDERED: HYDRALAZINE HCL INJ/PF 20 MG/1 ML SDV IV PRN (03:41)
[2020-02-05] MEDS: CEFAZOLIN 1 GM/D5W RTU 1 GM/50 ML RTUPB IV SCH ×3 (06:16→17:45)
[2020-02-05] MEDS: OXYCODONE HCL IR 5 MG TABLET PO SCH ×3 (06:17→22:03)
[2020-02-05] MEDS: GABAPENTIN 300 MG CAPSULE PO SCH ×3 (06:17→22:03)
[2020-02-05] MEDS: HEPARIN SOD (PORCINE) 5,000 UNIT/ML 1 ML VIAL SUBCUT SCH ×3 (06:18→21:10)
[2020-02-05] MEDS: FAMOTIDINE 20 MG TABLET PO SCH ×2 (10:17→22:03)
[2020-02-05] MEDS: BACLOFEN 10 MG TABLET PO SCH ×2 (10:17→22:03)
[2020-02-05] MEDS: PREDNISONE 5 MG TABLET PO SCH ×2 (10:17→17:45)
[2020-02-05] MEDS: NORMAL SALINE 1000 ML 1,000 ML IV PRN ×2 (10:17→22:10)
[2020-02-05] MEDS: METHADONE HCL 10 MG TABLET PO SCH ×2 (10:17→22:03)
[2020-02-05] MEDS: DOCUSATE SODIUM 100 MG CAPSULE PO SCH ×2 (10:17→17:45)
[2020-02-05] MEDS: NADOLOL 40 MG TABLET PO SCH ×2 (10:17→22:52)
[2020-02-05] MEDS ORDERED: HYDROCORTISONE 1% CREAM 28.35 GM TP PRN (12:29)
[2020-02-05] MEDS: LIDOCAINE 1% INJ-PF (10 MG/ML) 30 ML SDV ONE ×2 (14:10→14:13)
[2020-02-05] MEDS ORDERED: LIDOCAINE 1% INJ-PF (10 MG/ML) 30 ML SDV INJ ONE (14:15)
--- NOTE | 2020-02-05 14:37 | PDOC PROGRESS REPORT ---
Subjective Progress Note for:: 02/05/20 Subjective:: Patient seen and examined, no change in symptoms, still reports pain in left lower extremity. Reason For Visit: LEFT ANKLE FRACTURE,CHRONIC PAIN,ARRHYTHMIA, Physical Exam Vital Signs: Temp Pulse Resp BP Pulse Ox 98.0 F 71 19 143/50 H 90 L 02/05/20 11:45 02/05/20 11:45 02/05/20 11:45 02/05/20 11:45 02/05/20 11:45 Intake & Output 02/04/20 02/05/20 02/06/20 06:59 06:59 06:59 Intake Total 2268 3940 100 Output Total 2900 Balance 2268 1040 100 Weight 72.6 kg 75.7 kg Physical Exam: No acute distress, alert and orient x3 Left lower extremity Her splint was essentially falling apart when I saw her in the bed today. The ankle had the appearance of recurrent subluxation. I removed her splint revealing fracture blisters, diffuse ecchymosis, skin without laceration or signs of infection Left lower extremity neurovascular intact The patient moves continuously in bed, including her left lower extremity, almost the appearance of tardive dyskinesia. Results Laboratory Results: 02/03/20 04:35 02/03/20 04:35 01/31/20 23:45 Blood Blood Culture (PCR) - Final 01/31/20 23:45 Blood Blood Culture - Final Micrococcus Species 01/31/20 02/02/20 02/03/20 23:45 04:58 04:35 Creatine Kinase 810 H 200 H 96 Impressions: Chest X-Ray 02/01/20 00:00 IMPRESSION: 1. Blunting of left costophrenic angle may indicate a small left pleural effusion versus pleural parenchymal scarring. 2. Diffusely decreased bone mineral density. Fracture deformity of the right proximal humerus is incompletely evaluated with this technique, detailed on prior CT October 17, 2019. Stable left rib fracture deformities are again noted. Facial Bones CT 02/01/20 00:04 IMPRESSION: No acute bony injury is seen to the face. Head CT 02/01/20 00:04 IMPRESSION: No acute intracranial process is identified. Cervical Spine CT 02/01/20 00:06 IMPRESSION: No acute findings. Tibia/Fibula X-Ray 02/01/20 00:06 IMPRESSION: No acute bony injury to the proximal leg. Ankle has been imaged separately. Ankle X-Ray 02/01/20 02:40 IMPRESSION: Mildly improved alignment. Humerus X-Ray 02/01/20 03:44 IMPRESSION: Fracture deformity of the right proximal humerus again demonstrated. Alignment of the glenohumeral joint is difficult to assess on this exam. No obvious acute fracture visualized. Assessment & Plan - Diagnosis (1) Closed trimalleolar fracture of left ankle Is this a current diagnosis for this admission?: Yes Plan: I removed her splint in the room in order to replace it today. A hematoma block was provided to the left ankle with 10 cc of 1% lidocaine The patient consented to closed reduction of the bedside after discussing risks benefits and obtaining informed procedural consent After adequate analgesia the left lower extremity was reduced followed by the application of a well-padded well molded plaster splint -The patient is to follow-up with me in the office in approximately 7 days She will need open reduction internal fixation of the left ankle, I will reevaluate the skin at that time to determine the appropriateness of surgery If further subluxation at that time will consider external fixation. She is nonweightbearing left lower extremity until then, may be discharged to [facility] facility in the interval (2) Closed fracture of right proximal humerus Is this a current diagnosis for this admission?: Yes - Time Time Spent with patient: 35 or more minutes
--- NOTE | 2020-02-05 15:28 | RADIOLOGY REPORT (SQ) ---
EXAM DESCRIPTION: ANKLE LEFT AP/LATERAL IMAGES COMPLETED DATE/TIME: 02/05/2020 3:04 pm REASON FOR STUDY: post red COMPARISON: 02/01/2020 NUMBER OF VIEWS: Three views. TECHNIQUE: AP, lateral, and oblique radiographic images acquired of the left ankle. LIMITATIONS: External cast. FINDINGS: Trimalleolar fracture with interval anterior dislocation of the ankle joint. IMPRESSION: Interval anterior dislocation of the ankle joint. TECHNICAL DOCUMENTATION: JOB ID: [id number] [employer]- All Rights Reserved Reading location - IP/workstation name: [email or web address]
--- NOTE | 2020-02-05 16:16 | PDOC PROGRESS REPORT ---
Subjective Progress Note for:: 02/05/20 Subjective:: The patient is resting in bed. She states that she is having surgery. She also complains of itching at the top of the cast. Nursing reports that she is not been compliant with icing her ankle. Reason For Visit: LEFT ANKLE FRACTURE,CHRONIC PAIN,ARRHYTHMIA, Physical Exam Vital Signs: Temp Pulse Resp BP Pulse Ox 98.0 F 71 19 143/50 H 90 L 02/05/20 11:45 02/05/20 11:45 02/05/20 11:45 02/05/20 11:45 02/05/20 11:45 Intake & Output 02/04/20 02/05/20 02/06/20 06:59 06:59 06:59 Intake Total 2268 3940 100 Output Total 2900 Balance 2268 1040 100 Weight 72.6 kg 75.7 kg General appearance: PRESENT: no acute distress, cooperative, well-developed Head exam: PRESENT: atraumatic, normocephalic Respiratory exam: PRESENT: clear to auscultation char, symmetrical, unlabored. ABSENT: rales, rhonchi, tachypnea, wheezes Cardiovascular exam: PRESENT: RRR, +S1, +S2. ABSENT: bradycardia, diastolic murmur, irregular rhythm, systolic murmur, tachycardia GI/Abdominal exam: PRESENT: normal bowel sounds, soft. ABSENT: distended, guarding, tenderness Rectal exam: PRESENT: deferred Gentrourinary exam: ABSENT: indwelling catheter Extremities exam: PRESENT: pedal edema Musculoskeletal exam: PRESENT: other - Right lower leg fiberglass cast with soft tissue window cut out. Slight ecchymosis in the dorsum of the foot. Neurological exam: PRESENT: alert, awake, oriented to person, oriented to place, oriented to time, oriented to situation, CN II-XII grossly intact. ABSENT: altered Psychiatric exam: PRESENT: appropriate affect. ABSENT: agitated, anxious Focused psych exam: ABSENT: delusional, paranoid, restlessness Skin exam: PRESENT: other - Still with bullous lesion dorsum of the left foot. Results Laboratory Results: 02/03/20 04:35 02/03/20 04:35 01/31/20 23:45 Blood Blood Culture (PCR) - Final 01/31/20 23:45 Blood Blood Culture - Final Micrococcus Species 0902/02/20 02/03/20 23:45 04:58 04:35 Creatine Kinase 810 H 200 H 96 Impressions: Chest X-Ray 02/01/20 00:00 IMPRESSION: 1. Blunting of left costophrenic angle may indicate a small left pleural effusion versus pleural parenchymal scarring. 2. Diffusely decreased bone mineral density. Fracture deformity of the right proximal humerus is incompletely evaluated with this technique, detailed on prior CT October 17, 2019. Stable left rib fracture deformities are again noted. Facial Bones CT 02/01/20 00:04 IMPRESSION: No acute bony injury is seen to the face. Head CT 02/01/20 00:04 IMPRESSION: No acute intracranial process is identified. Cervical Spine CT 02/01/20 00:06 IMPRESSION: No acute findings. Tibia/Fibula X-Ray 02/01/20 00:06 IMPRESSION: No acute bony injury to the proximal leg. Ankle has been imaged separately. Humerus X-Ray 02/01/20 03:44 IMPRESSION: Fracture deformity of the right proximal humerus again demonstrated. Alignment of the glenohumeral joint is difficult to assess on this exam. No obvious acute fracture visualized. Ankle X-Ray 02/05/20 00:00 IMPRESSION: Interval anterior dislocation of the ankle joint. Assessment and Plan - Diagnosis (1) Metabolic encephalopathy Is this a current diagnosis for this admission?: Yes (2) Fall Qualifiers: Encounter type: initial encounter Qualified Code(s): W19.XXXA - Unspecified fall, initial encounter Is this a current diagnosis for this admission?: Yes (3) Closed left ankle fracture Qualifiers: Encounter type: initial encounter Qualified Code(s): S82.892A - Other fracture of left lower leg, initial encounter for closed fracture Is this a current diagnosis for this admission?: Yes (4) Rhabdomyolysis Qualifiers: Rhabdomyolysis type: traumatic Encounter type: initial encounter Qualif ied Code(s): T79.6XXA - Traumatic ischemia of muscle, initial encounter Is this a current diagnosis for this admission?: Yes (5) Dehydration Is this a current diagnosis for this admission?: Yes (6) Elevated transaminase level Is this a current diagnosis for this admission?: Yes (7) Hyperbilirubinemia Is this a current diagnosis for this admission?: Yes (8) Cellulitis Qualifiers: Site of cellulitis: extremity Site of cellulitis of extremity: lower extremity Laterality: left Qualified Code(s): L03.116 - Cellulitis of left lower limb Is this a current diagnosis for this admission?: Yes (9) Hyperglycemia due to diabetes mellitus Is this a current diagnosis for this admission?: Yes (10) Intractable back pain Is this a current diagnosis for this admission?: Yes (11) Chronically on opiate therapy Is this a current diagnosis for this admission?: Yes (12) Chronic obstructive pulmonary disease Qualifiers: Chronic bronchitis type: unspecified Is this a current diagnosis for this admission?: Yes (13) Atelectasis Is this a current diagnosis for this admission?: Yes (14) Positive blood culture Is this a current diagnosis for this admission?: Yes - Plan Summary Summary: 02/03/2020 Admitted the patient therefore am familiar with her case. I also discussed the case with Dr. Yuan today. The best case scenario would be [facility] for rehab and protecting the left ankle. The front of the cast has been cut open to create a window to look at the skin. There is erythema but the patient has been on antibiotics. She did have 1 blood culture bottle positive but this may likely be a contaminant. She still complains of pain in the ankle. The possibility of infection/cellulitis in the leg does not allow safe application of an external fixator. Ideally the patient should go to rehab for several weeks to regain strength and improve her balance and then orthopedic surgery can provide more definitive treatment for the unstable ankle fracture. Contact was made with her chronic pain management providers. She is currently on a regimen of their suggestion. She also needs to start participating in physical therapy since she does fall a lot at home. Some of this might be due to her medications. 02/04/2020 The patient was actually complementary of the physical therapist today. Now that she has someone to watch her dog she is amenable to short-term rehab prior to definitive surgery for her ankle. She has had multiple falls in the past. This certainly could be related to pain medication, clutter in the apartment with high risk areas for falls and poor gait. The patient will need rehab to strengthen and improve her balance. She currently is nonweightbearing for the left leg. This stronger she can get before surgery the better. She in fact should be able to go to short-term rehab as soon as a bed is available with surgery scheduled per Dr. Yuan. Dlpvrtrr-Oumx-Eahce have been stable. Continue current regimen. Hypertension-blood pressures are still quite variable. This may likely be due to variations in pain. Not enough consistency to alter medication regimen at this point. 02/05/2020 Ankle fracture-the fracture dislocated again today. The patient had eaten and so she is not a candidate for the operating room today. Dr. Yuan discussed the case with Dr. madrigal. Dr. Robles will be covering. Possible application of ex-fix tomorrow or Sunday. I have ordered laboratory studies including a pro time in anticipation of surgery within the next 24 to 48 hours. We will continue ice to the ankle. Cellulitis-we will continue the cefazolin for left leg cellulitis. It is scheduled to end on the . This will cover the surgical window. The patient will need placement at [facility] once her ex-fix is in place. Diabetes jfrvlaxd-Galm-Vdmyd are mostly below 150. Continue current regimen. Hypertension-blood pressures under reasonable control. Will continue current regimen and hold off on any adjustments for the time being. The patient is on chronic prednisone therapy for inflammatory bowel. It is likely she has osteoporosis. I will consider Miacalcin to possibly help with bone healing. Will discuss with orthopedic surgery. Elevated transaminases and bilirubin. Recheck CMP tomorrow - Time Time Spent with patient: 15-24 minutes Medications reviewed and adjusted accordingly: Yes Anticipated Discharge Disposition: [facility] Anticipated Discharge Timeframe: within 72 hours
[2020-02-05] MEDS ORDERED: NADOLOL 40 MG TABLET ONE (22:18)
[2020-02-06] MEDS: CEFAZOLIN 1 GM/D5W RTU 1 GM/50 ML RTUPB IV SCH ×3 (00:53→11:10)
[2020-02-06] MEDS: INSULIN LISPRO 100 UNIT/ML 3 ML VIAL SUBCUT SCH ×5 (00:54→21:26)
[2020-02-06] MEDS ORDERED: CEFAZOLIN SODIUM 2 GM in DEXTROSE 5%-WATER 100 ML IV PRN (05:00)
[2020-02-06 05:25] LABS: ABSOLUTE BASOPHILS # (AUTO) 0.1 10^3/uL (0.0-0.2); ABSOLUTE EOSINOPHILS # (AUTO) 0.2 10^3/uL (0.0-0.6); ABSOLUTE LYMPHOCYTES (AUTO) 1.7 10^3/uL (0.5-4.7); ABSOLUTE MONOCYTES (AUTO) 0.5 10^3/uL (0.1-1.4); ABSOLUTE NEUT (AUTO) 4.2 10^3/uL (1.7-8.2); BASOPHILS % (AUTO) 1.1 % (0-2); EOSINOPHILS % (AUTO) 2.6 % (0-6); HEMATOCRIT 28.2 % (36.0-47.0); HEMOGLOBIN 9.4 g/dL (12.0-15.5); LYMPHOCYTES % (AUTO) 25.6 % (13-45); MEAN CORPUSCULAR HEMOGLOBIN 26.6 pg (27.0-33.4); MEAN CORPUSCULAR HGB CONC 33.2 g/dL (32.0-36.0); MEAN CORPUSCULAR VOLUME 80 fl (80-97); MONOCYTES % (AUTO) 7.5 % (3-13); PLATELET COUNT 264 10^3/uL (150-450); RED BLOOD COUNT 3.53 10^6/uL (3.72-5.28); RED CELL DISTRIBUTION WIDTH 17.3 % (11.5-14.0); SEGMENTED NEUTROPHILS % (AUTO) 63.2 % (42-78); TOTAL CELLS COUNTED % (AUTO) 100 %; WHITE BLOOD COUNT 6.6 10^3/uL (4.0-10.5)
[2020-02-06] MEDS: HEPARIN SOD (PORCINE) 5,000 UNIT/ML 1 ML VIAL SUBCUT SCH ×3 (05:28→21:27)
[2020-02-06] MEDS: OXYCODONE HCL IR 5 MG TABLET PO SCH ×3 (05:32→21:22)
[2020-02-06] MEDS: GABAPENTIN 300 MG CAPSULE PO SCH ×3 (05:33→21:22)
[2020-02-06 05:34] LABS: INTERNATIONAL RATION (INR) 1.07; PROTHROMBIN TIME 14.1 SEC (11.4-15.4)
[2020-02-06 05:40] LABS: ALBUMIN 3.2 g/dL (3.5-5.0); ALKALINE PHOSPHATASE 89 U/L (38-126); ANION GAP 7 (5-19); ASPARTATE AMINO TRANSFERASE 28 U/L (14-36); BILIRUBIN,DIRECT 0.3 mg/dL (0.0-0.4); BILIRUBIN,TOTAL 0.8 mg/dL (0.2-1.3); BLOOD UREA NITROGEN 10 mg/dL (7-20); CALCIUM 8.5 mg/dL (8.4-10.2); CARBON DIOXIDE 28 mmol/L (22-30); CHLORIDE 107 mmol/L (98-107); GLUCOSE 73 mg/dL (75-110); POTASSIUM 4.1 mmol/L (3.6-5.0); TOTAL PROTEIN 6.6 g/dL (6.3-8.2)
[2020-02-06] MEDS ORDERED: FENTANYL CITRATE INJ/PF 100 MCG/2 ML AMPUL ONE (06:26)
[2020-02-06] MEDS ORDERED: MIDAZOLAM 2 MG/2 ML INJ ONE ×2 (06:26→11:12)
[2020-02-06] MEDS ORDERED: PROPOFOL INJ 200 MG/20 ML VIAL IV ONE ×2 (06:26→11:12)
[2020-02-06] MEDS ORDERED: ONDANSETRON HCL INJ/PF 4 MG/2 ML SDV ONE ×2 (06:26→11:12)
[2020-02-06] MEDS: BACLOFEN 10 MG TABLET PO SCH ×2 (09:20→21:22)
[2020-02-06] MEDS: METHADONE HCL 10 MG TABLET PO SCH ×2 (09:20→21:22)
[2020-02-06] MEDS: NADOLOL 40 MG TABLET PO SCH ×2 (09:26→21:22)
[2020-02-06] MEDS: FAMOTIDINE 20 MG TABLET PO SCH ×2 (09:30→21:22)
[2020-02-06] MEDS: PREDNISONE 5 MG TABLET PO SCH ×2 (09:30→18:00)
[2020-02-06] MEDS: MAGNESIUM OXIDE 400 MG TABLET PO SCH ×2 (09:30→18:01)
[2020-02-06] MEDS: DOCUSATE SODIUM 100 MG CAPSULE PO SCH ×2 (09:30→18:00)
[2020-02-06] MEDS: OXYCODONE-ACETAMINOPHEN 5-325 MG TABLET PO PRN ×3 (10:11→22:26)
--- NOTE | 2020-02-06 10:30 | PDOC PROGRESS REPORT ---
Subjective Progress Note for:: 02/06/20 Subjective:: The patient appears to be very comfortable in bed. She has her legs crossed with the left leg propped up in the air. Despite appearing comfortable she does complain of pain. She did not report to me at the bedside but after I left she did tell the nurses that she is having "burning when I urinate ". Reason For Visit: LEFT ANKLE FRACTURE,CHRONIC PAIN,ARRHYTHMIA, Physical Exam Vital Signs: Temp Pulse Resp BP Pulse Ox 97.8 F 74 16 168/56 H 99 02/06/20 07:21 02/06/20 07:21 02/06/20 07:21 02/06/20 07:21 02/06/20 07:21 Intake & Output 02/05/20 02/06/20 02/07/20 06:59 06:59 06:59 Intake Total 3940 1250 Output Total 2900 Balance 1040 1250 Weight 75.7 kg 74.1 kg General appearance: PRESENT: no acute distress, cooperative, well-developed Head exam: PRESENT: atraumatic, normocephalic Eye exam: PRESENT: conjunctiva pale. ABSENT: scleral icterus Ear exam: PRESENT: normal external ear exam. ABSENT: bleeding, drainage Respiratory exam: PRESENT: clear to auscultation char, symmetrical, unlabored. ABSENT: rales, rhonchi, tachypnea, wheezes Cardiovascular exam: PRESENT: RRR, +S1. ABSENT: bradycardia, diastolic murmur, irregular rhythm, +S2, systolic murmur, tachycardia GI/Abdominal exam: PRESENT: normal bowel sounds, soft. ABSENT: distended, tenderness Rectal exam: PRESENT: deferred Gentrourinary exam: ABSENT: indwelling catheter Extremities exam: ABSENT: pedal edema Musculoskeletal exam: PRESENT: other - Cast on left lower leg. ABSENT: ambulatory - Due to left ankle fracture, deformity, dislocation Neurological exam: PRESENT: alert, awake, oriented to person, oriented to place, oriented to time, oriented to situation, CN II-XII grossly intact. ABSENT: altered Psychiatric exam: PRESENT: appropriate affect. ABSENT: agitated, anxious Focused psych exam: ABSENT: delusional, paranoid, restlessness Skin exam: PRESENT: dry, pallor, warm. ABSENT: rash Results Laboratory Results: 02/06/20 04:33 02/06/20 04:33 02/06/20 02/06/20 04:33 04:33 WBC 6.6 RBC 3.53 L Hgb 9.4 L Hct 28.2 L MCV 80 MCH 26.6 L MCHC 33.2 RDW 17.3 H Plt Count 264 Seg Neutrophils % 63.2 Sodium 142.0 Potassium 4.1 Chloride 107 Carbon Dioxide 28 Anion Gap 7 BUN 10 Creatinine 0.64 Est GFR ( Amer) > 60 Glucose 73 L Calcium 8.5 Magnesium 1.5 L Total Bilirubin 0.8 AST 28 Alkaline Phosphatase 89 Total Protein 6.6 Albumin 3.2 L 01/31/20 23:45 Blood Blood Culture - Final NO GROWTH IN 5 DAYS 01/31/20 02/02/20 02/03/20 23:45 04:58 04:35 Creatine Kinase 810 H 200 H 96 Impressions: Chest X-Ray 02/01/20 00:00 IMPRESSION: 1. Blunting of left costophrenic angle may indicate a small left pleural effusion versus pleural parenchymal scarring. 2. Diffusely decreased bone mineral density. Fracture deformity of the right proximal humerus is incompletely evaluated with this technique, detailed on prior CT October 17, 2019. Stable left rib fracture deformities are again noted. Facial Bones CT 02/01/20 00:04 IMPRESSION: No acute bony injury is seen to the face. Head CT 02/01/20 00:04 IMPRESSION: No acute intracranial process is identified. Cervical Spine CT 02/01/20 00:06 IMPRESSION: No acute findings. Tibia/Fibula X-Ray 02/01/20 00:06 IMPRESSION: No acute bony injury to the proximal leg. Ankle has been imaged separately. Humerus X-Ray 02/01/20 03:44 IMPRESSION: Fracture deformity of the right proximal humerus again demonstrated. Alignment of the glenohumeral joint is difficult to assess on this exam. No obvious acute fracture visualized. Ankle X-Ray 02/05/20 00:00 IMPRESSION: Interval anterior dislocation of the ankle joint. Assessment and Plan - Diagnosis (1) Metabolic encephalopathy Is this a current diagnosis for this admission?: Yes (2) Fall Qualifiers: Encounter type: initial encounter Qualified Code(s): W19.XXXA - Unspecified fall, initial encounter Is this a current diagnosis for this admission?: Yes (3) Closed left ankle fracture Qualifiers: Encounter type: initial encounter Qualified Code(s): S82.892A - Other fracture of left lower leg, initial encounter for closed fracture Is this a current diagnosis for this admission?: Yes (4) Rhabdomyolysis Qualifiers: Rhabdomyolysis type: traumatic Encounter type: initial encounter Qualified Code(s): T79.6XXA - Traumatic ischemia of muscle, initial encounter Is this a current diagnosis for this admission?: Yes (5) Dehydration Is this a current diagnosis for this admission?: Yes (6) Elevated transaminase level Is this a current diagnosis for this admission?: Yes (7) Hyperbilirubinemia Is this a current diagnosis for this admission?: Yes (8) Cellulitis Qualifiers: Site of cellulitis: extremity Site of cellulitis of extremity: lower extremity Laterality: left Qualified Code(s): L03.116 - Cellulitis of left lower limb Is this a current diagnosis for this admission?: Yes (9) Hyperglycemia due to diabetes mellitus Is this a current diagnosis for this admission?: Yes (10) Intractable back pain Is this a current diagnosis for this admission?: Yes (11) Chronically on opiate therapy Is this a current diagnosis for this admission?: Yes (12) Chronic obstructive pulmonary disease Qualifiers: Chronic bronchitis type: unspecified Is this a current diagnosis for this admission?: Yes (13) Atelectasis Is this a current diagnosis for this admission?: Yes (14) Positive blood culture Is this a current diagnosis for this admission?: Yes (15) Hypomagnesemia Is this a current diagnosis for this admission?: Yes (16) Dysuria Is this a current diagnosis for this admission?: Yes - Plan Summary Summary: 02/03/2020 Admitted the patient therefore am familiar with her case. I also discussed the case with Dr. Yuan today. The best case scenario would be shelter for rehab and protecting the left ankle. The front of the cast has been cut open to create a window to look at the skin. There is erythema but the patient has been on antibiotics. She did have 1 blood culture bottle positive but this may likely be a contaminant. She still complains of pain in the ankle. The possibility of infection/cellulitis in the leg does not allow safe application of an external fixator. Ideally the patient should go to rehab for several weeks to regain strength and improve her balance and then orthopedic surgery can provide more definitive treatment for the unstable ankle fracture. Contact was made with her chronic pain management providers. She is currently on a regimen of their suggestion. She also needs to start participating in physical therapy since she does fall a lot at home. Some of this might be due to her medications. 02/04/2020 The patient was actually complementary of the physical therapist today. Now that she has someone to watch her dog she is amenable to short-term rehab prior to definitive surgery for her ankle. She has had multiple falls in the past. This certainly could be related to pain medication, clutter in the apartment with high risk areas for falls and poor gait. The patient will need rehab to strengthen and improve her balance. She currently is nonweightbearing for the left leg. This stronger she can get before surgery the better. She in fact should be able to go to short-term rehab as soon as a bed is available with surgery scheduled per Dr. Yuan. Zkvctomo-Soxj-Xqdoo have been stable. Continue current regimen. Hypertension-blood pressures are still quite variable. This may likely be due to variations in pain. Not enough consistency to alter medication regimen at this point. 02/05/2020 Ankle fracture-the fracture dislocated again today. The patient had eaten and so she is not a candidate for the operating room today. Dr. Yuan discussed the case with Dr. madrigal. Dr. Garcia will be covering. Possible application of ex-fix tomorrow or Sunday. I have ordered laboratory studies including a pro time in anticipation of surgery within the next 24 to 48 hours. We will continue ice to the ankle. Cellulitis-we will continue the cefazolin for left leg cellulitis. It is lynne eduled to end on the . This will cover the surgical window. The patient will need placement at [facility] once her ex-fix is in place. Diabetes zinxgemf-Nwdq-Sgaea are mostly below 150. Continue current regimen. Hypertension-blood pressures under reasonable control. Will continue current regimen and hold off on any adjustments for the time being. The patient is on chronic prednisone therapy for inflammatory bowel. It is likely she has osteoporosis. I will consider Miacalcin to possibly help with bone healing. Will discuss with orthopedic surgery. Elevated transaminases and bilirubin. Recheck CMP tomorrow 02/06/2020 Left ankle fracture-scheduled for external fixation application today. Dr. Garcia will be performing the surgery. Will be able to go to shelter facility after the surgery. Will discuss with orthopedics how long they would like inpatient monitoring prior to transfer. Laboratory studies performed this morning. No contraindications to surgery. Ankle pain is reasonably controlled Hypomagnesemia-serum magnesium was low at 1.5. Will start oral magnesium. No need for intravenous supplement at this time. Dysuria-the patient does not have an indwelling catheter. She has been on cefazolin. I did asked the nurse to obtain a urinalysis with reflex to culture. Pyridium will not be available as needed. No change in antibiotics at this time. Changes will be based on urine culture results. Rhabdomyolysis, elevated bilirubin, elevated transaminases-all are now resolved based on laboratory studies. Hyperglycemia due to diabetes-on current regimen she was actually slightly low today. She is n.p.o. for surgery. Most of her Accu-Cheks have been below 150. Last night she was 177 possibly contributing to slightly low glucose this morning. Repeat Accu-Chek was 82. Continue Accu-Cheks with sliding scale. Hypertension-blood pressures are still variable. No changes preoperatively. If blood pressures are still elevated later today and tomorrow we will adjust medications. - Time Time Spent with patient: 15-24 minutes Medications reviewed and adjusted accordingly: Yes Anticipated Discharge Disposition: Shelter Facility Anticipated Discharge Timeframe: within 72 hours
--- NOTE | 2020-02-06 11:01 | PDOC PROGRESS REPORT ---
Subjective Progress Note for:: 02/06/20 Reason For Visit: LEFT ANKLE FRACTURE,CHRONIC PAIN,ARRHYTHMIA, 64-year-old white female with a unstable left trimalleolar ankle fracture dislocation status post 2 attempts at closed reduction with residual instability Physical Exam Vital Signs: Temp Pulse Resp BP Pulse Ox 36.6 C 74 16 168/56 H 99 02/06/20 10:22 02/06/20 10:22 02/06/20 10:22 02/06/20 10:22 02/06/20 10:22 Intake & Output 02/05/20 02/06/20 02/07/20 06:59 06:59 06:59 Intake Total 3940 1250 Output Total 2900 Balance 1040 1250 Weight 75.7 kg 74.1 kg General appearance: PRESENT: no acute distress, mild distress Head exam: PRESENT: normocephalic Respiratory exam: PRESENT: unlabored Cardiovascular exam: PRESENT: RRR Vascular exam: PRESENT: normal capillary refill Extremities exam: PRESENT: other - Left lower extremity immobilized in a posterior plaster splint. Toes are visible. Ecchymosis over the central toes with fungal involvement of the great toenail. Results Laboratory Results: 02/06/20 04:33 02/06/20 04:33 02/06/20 02/06/20 04:33 04:33 WBC 6.6 RBC 3.53 L Hgb 9.4 L Hct 28.2 L MCV 80 MCH 26.6 L MCHC 33.2 RDW 17.3 H Plt Count 264 Seg Neutrophils % 63.2 Sodium 142.0 Potassium 4.1 Chloride 107 Carbon Dioxide 28 Anion Gap 7 BUN 10 Creatinine 0.64 Est GFR ( Amer) > 60 Glucose 73 L Calcium 8.5 Magnesium 1.5 L Total Bilirubin 0.8 AST 28 Alkaline Phosphatase 89 Total Protein 6.6 Albumin 3.2 L 01/31/20 23:45 Blood Blood Culture - Final NO GROWTH IN 5 DAYS 01/31/20 02/02/20 02/03/20 23:45 04:58 04:35 Creatine Kinase 810 H 200 H 96 Impressions: Chest X-Ray 02/01/20 00:00 IMPRESSION: 1. Blunting of left costophrenic angle may indicate a small left pleural effusion versus pleural parenchymal scarring. 2. Diffusely decreased bone mineral density. Fracture deformity of the right proximal humerus is incompletely evaluated with this technique, detailed on prior CT October 17, 2019. Stable left rib fracture deformities are again noted. Facial Bones CT 02/01/20 00:04 IMPRESSION: No acute bony injury is seen to the face. Head CT 02/01/20 00:04 IMPRESSION: No acute intracranial process is identified. Cervical Spine CT 02/01/20 00:06 IMPRESSION: No acute findings. Tibia/Fibula X-Ray 02/01/20 00:06 IMPRESSION: No acute bony injury to the proximal leg. Ankle has been imaged separately. Humerus X-Ray 02/01/20 03:44 IMPRESSION: Fracture deformity of the right proximal humerus again demonstrated. Alignment of the glenohumeral joint is difficult to assess on this exam. No obvious acute fracture visualized. Ankle X-Ray 02/05/20 00:00 IMPRESSION: Interval anterior dislocation of the ankle joint. Status: Imported from PACS Assessment & Plan - Diagnosis (1) Closed trimalleolar fracture of left ankle Is this a current diagnosis for this admission?: Yes Plan: Plan will be for closed reduction application of an external fixator under regional anesthesia. - Time Time Spent with patient: 15-24 minutes
[2020-02-06] MEDS ORDERED: CEFAZOLIN INJ 1 GM VIAL ONE (11:09)
[2020-02-06] MEDS ORDERED: HYDROMORPHONE HCL INJ/PF 2 MG/ML AMPULE ONE (11:12)
[2020-02-06] MEDS ORDERED: LIDOCAINE 2% INJ-PF (20 MG/ML) 10 ML AMPUL ONE (11:12)
[2020-02-06] MEDS ORDERED: EPHEDRINE SULFATE INJ 50 MG/1 ML AMPULE ONE (11:44)
[2020-02-06] MEDS ORDERED: PROMETHAZINE HCL INJ 25 MG/1 ML VIAL IV PRN ×2 (12:03)
[2020-02-06] MEDS ORDERED: ONDANSETRON HCL INJ/PF 4 MG/2 ML SDV IV PRN (12:03)
[2020-02-06] MEDS ORDERED: FENTANYL CITRATE INJ/PF 100 MCG/2 ML AMPUL IV PRN ×3 (12:03)
[2020-02-06] MEDS ORDERED: MEPERIDINE HCL/PF INJ 25 MG/1 ML DISP.SYRIN IV PRN (12:03)
[2020-02-06] MEDS ORDERED: DIPHENHYDRAMINE HCL 50 MG/ML VIAL IV PRN (12:03)
[2020-02-06] MEDS ORDERED: OXYCODONE-ACETAMINOPHEN 5-325 MG TABLET PO PRN ×2 (12:03)
--- NOTE | 2020-02-06 12:16 | Operative Report ---
Operative Report DATE OF SURGERY: 02/06/20 PREOPERATIVE DIAGNOSIS: Left left ankle fracture dislocation OPERATION: Those reduction and application of external fixator SURGEON: MODESTO CAMPBELL ANESTHESIA: GA TISSUE REMOVED OR ALTERED: None ESTIMATED BLOOD LOSS: Minimal PROCEDURE: With the patient supine in the operating table the splint is removed from the left lower extremity. A pre-scrub was performed with chlorhexidine scrub. The extremity was then prepped and draped in a sterile fashion. A standard Symplified delta frame is constructed using 4 mm pins, 1 through the calcaneus, 2 through the diaphysis of the tibia, and one into the proximal metatarsal region. The fracture was then reduced under fluoroscopic guidance and felt to be adequate. As the frame was being tightened down an additional x-ray shows that there is now subluxation of the talus posterior to the tibia. The fracture is again reduced and a pin is placed anteriorly over the distal tibia with pressure posteriorly to maintain the reduction of the talus underneath the tibial plafond. Hardware placement and fracture reduction are again assessed fluoroscopically and felt to be adequate. A sterile compressive dressing is applied and the patient is returned to the PACU satisfactory condition.
[2020-02-06] MEDS: FENTANYL CITRATE INJ/PF 100 MCG/2 ML AMPUL ONE ×3 (12:32→12:42)
[2020-02-06] MEDS ORDERED: RINGERS SOLUTION,LACTATED 1,000 ML IV PRN (12:42)
[2020-02-06] MEDS ORDERED: ROPIVACAINE HCL 0.5% INJ/PF (5 MG/1 ML) 30 ML SDV ONE (12:48)
--- NOTE | 2020-02-06 14:03 | RADIOLOGY REPORT (SQ) ---
EXAM DESCRIPTION: ANKLE LEFT AP/LATERAL; NO CHG FLUORO IMAGES COMPLETED DATE/TIME: 02/06/2020 1:27 pm REASON FOR STUDY: EXTERNAL FIXATOR PLACEMEMT LEFT ANKLE ASSISTED WITH FLUORO IN OR COMPARISON: None. FLUOROSCOPY TIME: 0.7 minutes. 2 images submitted to PACS. TECHNIQUE: Intra-operative images of the left ankle were obtained during placement of an external fi xator. NUMBER OF IMAGES: 2 LIMITATIONS: None. FINDINGS: Refer to the separate operative report. IMPRESSION: IMAGE(S) OBTAINED DURING PROCEDURE. COMMENT: Quality ID [id number]: Final reports for procedures using fluoroscopy that document radiation exp osure indices, or exposure time and number of fluorographic images (if radiation exposure indices are not available) Please consult full operative report of the attending physician for description of the procedure. TECHNICAL DOCUMENTATION: JOB ID: [id number] 2010 [employer]- All Rights Reserved Reading location - IP/workstation name: [email or web address]
--- NOTE | 2020-02-06 14:03 | RADIOLOGY REPORT (SQ) ---
EXAM DESCRIPTION: ANKLE LEFT AP/LATERAL; NO CHG FLUORO IMAGES COMPLETED DATE/TIME: 02/06/2020 1:27 pm REASON FOR STUDY: EXTERNAL FIXATOR PLACEMEMT LEFT ANKLE ASSISTED WITH FLUORO IN OR COMPARISON: None. FLUOROSCOPY TIME: 0.7 minutes. 2 images submitted to PACS. TECHNIQUE: Intra-operative images of the left ankle were obtained during placement of an external fi xator. NUMBER OF IMAGES: 2 LIMITATIONS: None. FINDINGS: Refer to the separate operative report. IMPRESSION: IMAGE(S) OBTAINED DURING PROCEDURE. COMMENT: Quality ID [id number]: Final reports for procedures using fluoroscopy that document radiation exp osure indices, or exposure time and number of fluorographic images (if radiation exposure indices are not available) Please consult full operative report of the attending physician for description of the procedure. TECHNICAL DOCUMENTATION: JOB ID: [id number] 2010 [employer]- All Rights Reserved Reading location - IP/workstation name: [email or web address]
[2020-02-06] MEDS ORDERED: PHENAZOPYRIDINE HCL 100 MG TABLET PO PRN ×2 (15:34→16:00)
[2020-02-06] MEDS: CEFAZOLIN SODIUM 2 GM in DEXTROSE 5%-WATER 100 ML IV SCH (18:02)
[2020-02-06 22:41] LABS: APPEARANCE,URINE CLEAR; BILIRUBIN,URINE NEGATIVE (NEGATIVE); COLOR,URINE YELLOW; GLUCOSE, URINE NEGATIVE (NEGATIVE); KETONES,URINE NEGATIVE (NEGATIVE); PROTEIN,URINE NEGATIVE (NEGATIVE); URINE SPECIFIC GRAVITY 1.013; UROBILINOGEN,URINE NEGATIVE mg/dL (<2.0)
[2020-02-07] MEDS: CEFAZOLIN SODIUM 2 GM in DEXTROSE 5%-WATER 100 ML IV SCH (02:28)
[2020-02-07] MEDS: OXYCODONE-ACETAMINOPHEN 5-325 MG TABLET PO PRN ×3 (04:25→19:05)
[2020-02-07 05:12] LABS: ABSOLUTE BASOPHILS # (AUTO) 0.1 10^3/uL (0.0-0.2); ABSOLUTE EOSINOPHILS # (AUTO) 0.1 10^3/uL (0.0-0.6); ABSOLUTE LYMPHOCYTES (AUTO) 1.3 10^3/uL (0.5-4.7); ABSOLUTE MONOCYTES (AUTO) 0.4 10^3/uL (0.1-1.4); ABSOLUTE NEUT (AUTO) 5.1 10^3/uL (1.7-8.2); BASOPHILS % (AUTO) 0.9 % (0-2); EOSINOPHILS % (AUTO) 2.1 % (0-6); HEMATOCRIT 29.3 % (36.0-47.0); HEMOGLOBIN 9.7 g/dL (12.0-15.5); MEAN CORPUSCULAR HEMOGLOBIN 26.5 pg (27.0-33.4); MEAN CORPUSCULAR HGB CONC 32.9 g/dL (32.0-36.0); MEAN CORPUSCULAR VOLUME 80 fl (80-97); MONOCYTES % (AUTO) 6.2 % (3-13); PLATELET COUNT 274 10^3/uL (150-450); RED BLOOD COUNT 3.65 10^6/uL (3.72-5.28); RED CELL DISTRIBUTION WIDTH 17.4 % (11.5-14.0); SEGMENTED NEUTROPHILS % (AUTO) 72.8 % (42-78); TOTAL CELLS COUNTED % (AUTO) 100 %
[2020-02-07 05:29] LABS: ANION GAP 7 (5-19); BLOOD UREA NITROGEN 13 mg/dL (7-20); CALCIUM 8.5 mg/dL (8.4-10.2); CARBON DIOXIDE 31 mmol/L (22-30); CHLORIDE 101 mmol/L (98-107); CREATINE KINASE 34 U/L (30-135); GLUCOSE 96 mg/dL (75-110); POTASSIUM 4.8 mmol/L (3.6-5.0)
[2020-02-07] MEDS: OXYCODONE HCL IR 5 MG TABLET PO SCH ×3 (05:38→21:30)
[2020-02-07] MEDS: GABAPENTIN 300 MG CAPSULE PO SCH ×3 (05:38→21:30)
[2020-02-07] MEDS: HEPARIN SOD (PORCINE) 5,000 UNIT/ML 1 ML VIAL SUBCUT SCH ×3 (05:38→21:32)
[2020-02-07] MEDS: INSULIN LISPRO 100 UNIT/ML 3 ML VIAL SUBCUT SCH ×4 (07:22→23:13)
[2020-02-07] MEDS: METHADONE HCL 10 MG TABLET PO SCH ×2 (10:52→21:30)
[2020-02-07] MEDS: BACLOFEN 10 MG TABLET PO SCH ×2 (10:52→21:30)
[2020-02-07] MEDS: FAMOTIDINE 20 MG TABLET PO SCH ×2 (10:52→21:30)
[2020-02-07] MEDS: MAGNESIUM OXIDE 400 MG TABLET PO SCH ×2 (10:52→17:25)
[2020-02-07] MEDS: PREDNISONE 5 MG TABLET PO SCH ×2 (10:52→17:26)
[2020-02-07] MEDS: DOCUSATE SODIUM 100 MG CAPSULE PO SCH ×2 (10:52→17:18)
[2020-02-07] MEDS: NADOLOL 40 MG TABLET PO SCH ×2 (10:53→21:31)
--- NOTE | 2020-02-07 12:31 | PDOC PROGRESS REPORT ---
Subjective Progress Note for:: 02/07/20 Subjective:: Patient doing well over the last 24hrs, she does have complaints of pain but reducing. Reason For Visit: LEFT ANKLE FRACTURE,CHRONIC PAIN,ARRHYTHMIA,SP External Fixation 24hours Physical Exam Vital Signs: Temp Pulse Resp BP Pulse Ox 98.1 F 77 16 122/66 96 02/07/20 08:53 02/07/20 08:08 02/07/20 08:08 02/07/20 08:08 02/07/20 08:08 Intake & Output 02/06/20 02/07/20 02/08/20 06:59 06:59 06:59 Intake Total 1250 2300 Output Total 5 Balance 1250 2295 Weight 74.1 kg 75.2 kg General appearance: PRESENT: no acute distress, well-developed - no signs of infection, well-nourished Results Laboratory Results: 02/07/20 04:23 02/07/20 04:23 02/06/20 02/07/20 02/07/20 22:21 04:23 04:23 WBC 7.0 RBC 3.65 L Hgb 9.7 L Hct 29.3 L MCV 80 MCH 26.5 L MCHC 32.9 RDW 17.4 H Plt Count 274 Seg Neutrophils % 72.8 Sodium 139.2 Potassium 4.8 Chloride 101 Carbon Dioxide 31 H Anion Gap 7 BUN 13 Creatinine 0.71 Est GFR ( Amer) > 60 Glucose 96 Calcium 8.5 Urine Color YELLOW Urine Appearance CLEAR Urine pH 7.0 Ur Specific [place] 1.013 Urine Protein NEGATIVE Urine Glucose (UA) NEGATIVE Urine Ketones NEGATIVE Urine Blood NEGATIVE Urine RBC (Auto) 0 01/31/20 02/02/20 02/03/20 23:45 04:58 04:35 Creatine Kinase 810 H 200 H 96 02/07/20 04:23 Creatine Kinase 34 Impressions: Chest X-Ray 02/01/20 00:00 IMPRESSION: 1. Blunting of left costophrenic angle may indicate a small left pleural effusion versus pleural parenchymal scarring. 2. Diffusely decreased bone mineral density. Fracture deformity of the right proximal humerus is incompletely evaluated with this technique, detailed on prior CT October 17, 2019. Stable left rib fracture deformities are again noted. Facial Bones CT 02/01/20 00:04 IMPRESSION: No acute bony injury is seen to the face. Head CT 02/01/20 00:04 IMPRESSION: No acute intracranial process is identified. Cervical Spine CT 02/01/20 00:06 IMPRESSION: No acute findings. Tibia/Fibula X-Ray 02/01/20 00:06 IMPRESSION: No acute bony injury to the proximal leg. Ankle has been imaged separately. Humerus X-Ray 02/01/20 03:44 IMPRESSION: Fracture deformity of the right proximal humerus again demonstrated. Alignment of the glenohumeral joint is difficult to assess on this exam. No obvious acute fracture visualized. Ankle X-Ray 02/06/20 00:00 IMPRESSION: IMAGE(S) OBTAINED DURING PROCEDURE. Fluoroscopy 02/06/20 00:00 IMPRESSION: IMAGE(S) OBTAINED DURING PROCEDURE. Assessment & Plan - Diagnosis (1) Closed left ankle fracture Qualifiers: Encounter type: subsequent encounter Fracture healing: with routine healing Qualified Code(s): S82.892D - Other fracture of left lower leg, subsequent encounter for closed fracture with routine healing Is this a current diagnosis for this admission?: Yes Plan: REHAB AND SNF PLACEMENT (2) Closed trimalleolar fracture of left ankle Qualifiers: Encounter type: subsequent encounter Fracture healing: with routine healing Qualified Code(s): S82.852D - Displaced trimalleolar fracture of left lower leg, subsequent encounter for closed fracture with routine healing Is this a current diagnosis for this admission?: Yes Plan: Plan will be for closed reduction application of an external fixator under regional anesthesia.She is recovering well and will be processed to [facility] in 2-3 days. 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
--- NOTE | 2020-02-07 13:18 | PDOC PROGRESS REPORT ---
Subjective Progress Note for:: 02/07/20 Subjective:: The patient complains of pain. Yet she moves her left leg all around. She certainly does not appear to be in pain based on her verbal interaction. She does talk at a normal pace with occasional wincing. Reason For Visit: LEFT ANKLE FRACTURE,CHRONIC PAIN,ARRHYTHMIA, Physical Exam Vital Signs: Temp Pulse Resp BP Pulse Ox 97.9 F 77 20 155/83 H 96 02/07/20 11:41 02/07/20 11:41 02/07/20 11:41 02/07/20 11:41 02/07/20 11:41 Intake & Output 02/06/20 02/07/20 02/08/20 06:59 06:59 06:59 Intake Total 1250 2300 120 Output Total 5 Balance 1250 2295 120 Weight 74.1 kg 75.2 kg General appearance: PRESENT: cooperative, mild distress, well-developed Head exam: PRESENT: atraumatic, normocephalic Eye exam: PRESENT: conjunctiva pale. ABSENT: scleral icterus Ear exam: PRESENT: normal external ear exam. ABSENT: bleeding, drainage Mouth exam: PRESENT: dry mucosa, tongue midline Teeth exam: ABSENT: poor dentation Neck exam: ABSENT: carotid bruit, JVD, lymphadenopathy, tracheostomy Respiratory exam: PRESENT: clear to auscultation char, symmetrical, unlabored. ABSENT: prolonged expiratory phas, rales, rhonchi, tachypnea, wheezes Cardiovascular exam: PRESENT: RRR, +S1, +S2. ABSENT: bradycardia, diastolic murmur, irregular rhythm, systolic murmur, tachycardia GI/Abdominal exam: PRESENT: normal bowel sounds, soft. ABSENT: distended, guarding, mass, tenderness Rectal exam: PRESENT: deferred Extremities exam: PRESENT: other - External fixator left leg. ABSENT: pedal edema Musculoskeletal exam: PRESENT: deformity - External fixator left ankle. ABSENT: ambulatory, dislocation, normal inspection Neurological exam: PRESENT: alert, awake, oriented to person, oriented to place, oriented to time, oriented to situation Psychiatric exam: PRESENT: appropriate affect. ABSENT: agitated, anxious Focused psych exam: ABSENT: delusional, paranoid, restlessness Skin exam: PRESENT: dry, pallor, warm. ABSENT: erythema, rash Results Laboratory Results: 02/07/20 04:23 02/07/20 04:23 02/06/20 02/07/20 02/07/20 22:21 04:23 04:23 WBC 7.0 RBC 3.65 L Hgb 9.7 L Hct 29.3 L MCV 80 MCH 26.5 L MCHC 32.9 RDW 17.4 H Plt Count 274 Seg Neutrophils % 72.8 Sodium 139.2 Potassium 4.8 Chloride 101 Carbon Dioxide 31 H Anion Gap 7 BUN 13 Creatinine 0.71 Est GFR ( Amer) > 60 Glucose 96 Calcium 8.5 Urine Color YELLOW Urine Appearance CLEAR Urine pH 7.0 Ur Specific [place] 1.013 Urine Protein NEGATIVE Urine Glucose (UA) NEGATIVE Urine Ketones NEGATIVE Urine Blood NEGATIVE Urine RBC (Auto) 0 01/31/20 02/02/20 02/03/20 23:45 04:58 04:35 Creatine Kinase 810 H 200 H 96 02/07/20 04:23 Creatine Kinase 34 Impressions: Chest X-Ray 02/01/20 00:00 IMPRESSION: 1. Blunting of left costophrenic angle may indicate a small left pleural effusion versus pleural parenchymal scarring. 2. Diffusely decreased bone mineral density. Fracture deformity of the right proximal humerus is incompletely evaluated with this technique, detailed on prior CT October 17, 2019. Stable left rib fracture deformities are again noted. Facial Bones CT 02/01/20 00:04 IMPRESSION: No acute bony injury is seen to the face. Head CT 02/01/20 00:04 IMPRESSION: No acute intracranial process is identified. Cervical Spine CT 02/01/20 00:06 IMPRESSION: No acute findings. Tibia/Fibula X-Ray 02/01/20 00:06 IMPRESSION: No acute bony injury to the proximal leg. Ankle has been imaged separately. Humerus X-Ray 02/01/20 03:44 IMPRESSION: Fracture deformity of the right proximal humerus again demonstrated. Alignment of the glenohumeral joint is difficult to assess on this exam. No obvious acute fracture visualized. Ankle X-Ray 02/06/20 00:00 IMPRESSION: IMAGE(S) OBTAINED DURING PROCEDURE. Fluoroscopy 02/06/20 00:00 IMPRESSION: IMAGE(S) OBTAINED DURING PROCEDURE. Assessment and Plan - Diagnosis (1) Metabolic encephalopathy Is this a current diagnosis for this admission?: Yes (2) Fall Qualifiers: Encounter type: initial encounter Qualified Code(s): W19.XXXA - Unspecified fall, initial encounter Is this a current diagnosis for this admission?: Yes (3) Closed left ankle fracture Qualifiers: Encounter type: subsequent encounter Fracture healing: with routine healing Qualified Code(s): S82.892D - Other fracture of left lower leg, subsequent encounter for closed fracture with routine healing Is this a current diagnosis for this admission?: Yes (4) Rhabdomyolysis Qualifiers: Rhabdomyolysis type: traumatic Encounter type: initial encounter Qualified Code(s): T79.6XXA - Traumatic ischemia of muscle, initial encounter Is this a current diagnosis for this admission?: Yes (5) Dehydration Is this a current diagnosis for this admission?: Yes (6) Elevated transaminase level Is this a current diagnosis for this admission?: Yes (7) Hyperbilirubinemia Is this a current diagnosis for this admission?: Yes (8) Cellulitis Qualifiers: Site of cellulitis: extremity Site of cellulitis of extremity: lower extremity Laterality: left Qualified Code(s): L03.116 - Cellulitis of left lower limb Is this a current diagnosis for this admission?: Yes (9) Hyperglycemia due to diabetes mellitus Is this a current diagnosis for this admission?: Yes (10) Intractable back pain Is this a current diagnosis for this admission?: Yes (11) Chronically on opiate therapy Is this a current diagnosis for this admission?: Yes (12) Chronic obstructive pulmonary disease Qualifiers: Chronic bronchitis type: unspecified Is this a current diagnosis for this admission?: Yes (13) Atelectasis Is this a current diagnosis for this admission?: Yes (14) Positive blood culture Is this a current diagnosis for this admission?: Yes (15) Hypomagnesemia Is this a current diagnosis for this admission?: Yes (16) Dysuria Is this a current diagnosis for this admission?: Yes - Plan Summary Summary: 02/03/2020 Admitted the patient therefore am familiar with her case. I also discussed the case with Dr. Yuan today. The best case scenario would be [facility] for rehab and protecting the left ankle. The front of the cast has been cut open to create a window to look at the skin. There is erythema but the patient has been on antibiotics. She did have 1 blood culture bottle positive but this may likely be a contaminant. She still complains of pain in the ankle. The possibility of infection/cellulitis in the leg does not allow safe application of an external fixator. Ideally the patient should go to rehab for several weeks to regain strength and improve her balance and then orthopedic surgery can provide more definitive treatment for the unstable ankle fracture. Contact was made with her chronic pain management providers. She is currently o n a regimen of their suggestion. She also needs to start participating in physical therapy since she does fall a lot at home. Some of this might be due to her medications. 02/04/2020 The patient was actually complementary of the physical therapist today. Now that she has someone to watch her dog she is amenable to short-term rehab prior to definitive surgery for her ankle. She has had multiple falls in the past. This certainly could be related to pain medication, clutter in the apartment with high risk areas for falls and poor gait. The patient will need rehab to strengthen and improve her balance. She currently is nonweightbearing for the left leg. This stronger she can get before surgery the better. She in fact should be able to go to short-term rehab as soon as a bed is available with surgery scheduled per Dr. Yuan. Befyyxox-Bvon-Nwviw have been stable. Continue current regimen. Hypertension-blood pressures are still quite variable. This may likely be due to variations in pain. Not enough consistency to alter medication regimen at this point. 02/05/2020 Ankle fracture-the fracture dislocated again today. The patient had eaten and so she is not a candidate for the operating room today. Dr. Yuan discussed the case with Dr. madrigal. Dr. Garcia will be covering. Possible application of ex-fix tomorrow or Sunday. I have ordered laboratory studies including a pro time in anticipation of surgery within the next 24 to 48 hours. We will continue ice to the ankle. Cellulitis-we will continue the cefazolin for left leg cellulitis. It is scheduled to end on the . This will cover the surgical window. The patient will need placement at skilled once her ex-fix is in place. Diabetes wyomohws-Amor-Mglss are mostly below 150. Continue current regimen. Hypertension-blood pressures under reasonable control. Will continue current regimen and hold off on any adjustments for the time being. The patient is on chronic prednisone therapy for inflammatory bowel. It is likely she has osteoporosis. I will consider Miacalcin to possibly help with bone healing. Will discuss with orthopedic surgery. Elevated transaminases and bilirubin. Recheck CMP tomorrow 02/06/2020 Left ankle fracture-scheduled for external fixation application today. Dr. Garcia will be performing the surgery. Will be able to go to [facility] facility after the surgery. Will discuss with orthopedics how long they would like inpatient monitoring prior to transfer. Laboratory studies performed this morning. No contraindications to surgery. Ankle pain is reasonably controlled Hypomagnesemia-serum magnesium was low at 1.5. Will start oral magnesium. No need for intravenous supplement at this time. Dysuria-the patient does not have an indwelling catheter. She has been on cefazolin. I did asked the nurse to obtain a urinalysis with reflex to culture. Pyridium will not be available as needed. No change in antibiotics at this time. Changes will be based on urine culture results. Rhabdomyolysis, elevated bilirubin, elevated transaminases-all are now resolved based on laboratory studies. Hyperglycemia due to diabetes-on current regimen she was actually slightly low today. She is n.p.o. for surgery. Most of her Accu-Cheks have been below 150. Last night she was 177 possibly contributing to slightly low glucose this morning. Repeat Accu-Chek was 82. Continue Accu-Cheks with sliding scale. Hypertension-blood pressures are still variable. No changes preoperatively. If blood pressures are still elevated later today and tomorrow we will adjust medications. 02/07/[address] Physical therapy is working with the patient. She actually has the external fixator placed yesterday by Dr. Camacho. She continues to complain of pain. Ssin-[id number] on oral magnesium supplementation. Recheck magnesium tomorrow. Dysuria-urinalysis did not need to reflex to culture. Continue Pyridium as needed. Diabetes-adjustments in medication have now resulted in reasonable glucose control. Continue current regimen. Hypertension-no changes in medication as her blood pressure still very. Rhabdomyolysis, elevated bilirubin and elevated transaminase levels-resolved Anticipate the ability to transfer to penitentiary on Sunday - Time Time Spent with patient: 15-24 minutes Medications reviewed and adjusted accordingly: Yes Anticipated Discharge Disposition: [facility] Facility Anticipated Discharge Timeframe: within 72 hours
[2020-02-07] MEDS ORDERED: IRON SUCROSE COMPLEX INJ/PF 100 MG/5 ML SDV IV ONE (14:30)
[2020-02-07] MEDS: KETOROLAC TROMETHAMINE INJ/PF 30 MG/1 ML SDV IV PRN ×2 (15:39→22:38)
[2020-02-08] MEDS: OXYCODONE-ACETAMINOPHEN 5-325 MG TABLET PO PRN ×3 (02:30→19:47)
[2020-02-08] MEDS: HEPARIN SOD (PORCINE) 5,000 UNIT/ML 1 ML VIAL SUBCUT SCH ×3 (05:17→22:40)
[2020-02-08] MEDS: GABAPENTIN 300 MG CAPSULE PO SCH ×3 (05:20→22:38)
[2020-02-08] MEDS: OXYCODONE HCL IR 5 MG TABLET PO SCH ×3 (05:21→22:38)
[2020-02-08] MEDS: INSULIN LISPRO 100 UNIT/ML 3 ML VIAL SUBCUT SCH ×4 (07:30→22:55)
[2020-02-08] MEDS: BACLOFEN 10 MG TABLET PO SCH ×2 (09:51→22:38)
[2020-02-08] MEDS: DOCUSATE SODIUM 100 MG CAPSULE PO SCH ×2 (09:52→18:11)
[2020-02-08] MEDS: FAMOTIDINE 20 MG TABLET PO SCH ×2 (09:53→22:38)
[2020-02-08] MEDS: PREDNISONE 5 MG TABLET PO SCH ×2 (09:54→18:12)
[2020-02-08] MEDS: NADOLOL 40 MG TABLET PO SCH ×2 (09:54→23:02)
[2020-02-08] MEDS: MAGNESIUM OXIDE 400 MG TABLET PO SCH ×2 (09:54→18:12)
[2020-02-08] MEDS: CALCITONIN,SALMON 6000 UNIT/30 SPRAY 3.7 ML NASL SCH (09:56)
[2020-02-08] MEDS: METHADONE HCL 10 MG TABLET PO SCH ×2 (10:43→22:40)
[2020-02-08] MEDS ORDERED: OXYCODONE-ACETAMINOPHEN 5-325 MG TABLET PO PRN (17:36)
--- NOTE | 2020-02-08 18:00 | PDOC PROGRESS REPORT ---
Subjective Progress Note for:: 02/08/20 Subjective:: The patient was sitting up talking on the phone to her cousin. She was swinging her leg up and over the bed. She still complains of severe pain. Reason For Visit: LEFT ANKLE FRACTURE,CHRONIC PAIN,ARRHYTHMIA, Physical Exam Vital Signs: Temp Pulse Resp BP Pulse Ox 97.3 F 68 17 132/77 H 100 02/08/20 16:00 02/08/20 16:00 02/08/20 16:00 02/08/20 16:00 02/08/20 16:00 Intake & Output 02/07/20 02/08/20 02/09/20 06:59 06:59 06:59 Intake Total 2300 600 620 Output Total 5 Balance 2295 600 620 Weight 75.2 kg 75.2 kg General appearance: PRESENT: no acute distress, cooperative, well-developed Head exam: PRESENT: atraumatic, normocephalic Ear exam: PRESENT: normal external ear exam. ABSENT: bleeding, drainage Mouth exam: PRESENT: moist, tongue midline Respiratory exam: PRESENT: clear to auscultation char, symmetrical, unlabored. ABSENT: rales, rhonchi, tachypnea, wheezes Cardiovascular exam: PRESENT: RRR, +S1, +S2. ABSENT: bradycardia, diastolic murmur, irregular rhythm, systolic murmur, tachycardia GI/Abdominal exam: PRESENT: normal bowel sounds, soft. ABSENT: distended, guarding, tenderness Rectal exam: PRESENT: deferred Gentrourinary exam: ABSENT: indwelling catheter Extremities exam: PRESENT: other - Left leg in external fixator. ABSENT: pedal edema Neurological exam: PRESENT: alert, awake, oriented to person, oriented to place, oriented to time, oriented to situation, CN II-XII grossly intact. ABSENT: altered Psychiatric exam: PRESENT: appropriate affect. ABSENT: agitated, anxious Focused psych exam: ABSENT: delusional, paranoid, restlessness Skin exam: PRESENT: dry, normal color, warm. ABSENT: abrasion, erythema, rash Results Laboratory Results: 02/07/20 04:23 02/07/20 04:23 01/31/20 02/02/20 02/03/20 23:45 04:58 04:35 Creatine Kinase 810 H 200 H 96 02/07/20 04:23 Creatine Kinase 34 Impressions: Chest X-Ray 02/01/20 00:00 IMPRESSION: 1. Blunting of left costophrenic angle may indicate a small left pleural effusion versus pleural parenchymal scarring. 2. Diffusely decreased bone mineral density. Fracture deformity of the right proximal humerus is incompletely evaluated with this technique, detailed on prior CT October 17, 2019. Stable left rib fracture deformities are again noted. Facial Bones CT 02/01/20 00:04 IMPRESSION: No acute bony injury is seen to the face. Head CT 02/01/20 00:04 IMPRESSION: No acute intracranial process is identified. Cervical Spine CT 02/01/20 00:06 IMPRESSION: No acute findings. Tibia/Fibula X-Ray 02/01/20 00:06 IMPRESSION: No acute bony injury to the proximal leg. Ankle has been imaged separately. Humerus X-Ray 02/01/20 03:44 IMPRESSION: Fracture deformity of the right proximal humerus again demonstrated. Alignment of the glenohumeral joint is difficult to assess on this exam. No obvious acute fracture visualized. Ankle X-Ray 02/06/20 00:00 IMPRESSION: IMAGE(S) OBTAINED DURING PROCEDURE. Fluoroscopy 02/06/20 00:00 IMPRESSION: IMAGE(S) OBTAINED DURING PROCEDURE. Assessment and Plan - Diagnosis (1) Metabolic encephalopathy Is this a current diagnosis for this admission?: Yes (2) Fall Qualifiers: Encounter type: initial encounter Qualified Code(s): W19.XXXA - Unspecified fall, initial encounter Is this a current diagnosis for this admission?: Yes (3) Closed left ankle fracture Qualifiers: Encounter type: subsequent encounter Fracture healing: with routine healing Qualified Code(s): S82.892D - Other fracture of left lower leg, subsequent encounter for closed fracture with routine healing Is this a current diagnosis for this admission?: Yes (4) Rhabdomyolysis Qualifiers: Rhabdomyolysis type: traumatic Encounter type: initial encounter Qualified Code(s): T79.6XXA - Traumatic ischemia of muscle, initial encounter Is this a current diagnosis for this admission?: Yes (5) Dehydration Is this a current diagnosis for this admission?: Yes (6) Elevated transaminase level Is this a current diagnosis for this admission?: Yes (7) Hyperbilirubinemia Is this a current diagnosis for this admission?: Yes (8) Cellulitis Qualifiers: Site of cellulitis: extremity Site of cellulitis of extremity: lower extremity Laterality: left Qualified Code(s): L03.116 - Cellulitis of left lower limb Is this a current diagnosis for this admission?: Yes (9) Hyperglycemia due to diabetes mellitus Is this a current diagnosis for this admission?: Yes (10) Intractable back pain Is this a current diagnosis for this admission?: Yes (11) Chronically on opiate therapy Is this a current diagnosis for this admission?: Yes (12) Chronic obstructive pulmonary disease Qualifiers: Chronic bronchitis type: unspecified Is this a current diagnosis for this admission?: Yes (13) Atelectasis Is this a current diagnosis for this admission?: Yes (14) Positive blood culture Is this a current diagnosis for this admission?: Yes (15) Hypomagnesemia Is this a current diagnosis for this admission?: Yes (16) Dysuria Is this a current diagnosis for this admission?: Yes - Plan Summary Summary: 02/03/2020 Admitted the patient therefore am familiar with her case. I also discussed the case with Dr. Yuan today. The best case scenario would be assisted for rehab and protecting the left ankle. The front of the cast has been cut open to create a window to look at the skin. There is erythema but the patient has been on antibiotics. She did have 1 blood culture bottle positive but this may likely be a contaminant. She still complains of pain in the ankle. The possibility of infection/cellulitis in the leg does not allow safe application of an external fixator. Ideally the patient should go to rehab for several weeks to regain strength and improve her balance and then orthopedic surgery can provide more definitive treatment for the unstable ankle fracture. Contact was made with her chronic pain management providers. She is currently on a regimen of their suggestion. She also needs to start participating in physical therapy since she does fall a lot at home. Some of this might be due to her medications. 02/04/2020 The patient was actually complementary of the physical therapist today. Now that she has someone to watch her dog she is amenable to short-term rehab prior to definitive surgery for her ankle. She has had multiple falls in the past. This certainly could be related to pain medication, clutter in the apartment with high risk areas for falls and poor gait. The patient will need rehab to strengthen and improve her balance. She currently is nonweightbearing for the left leg. This stronger she can get before surgery the better. She in fact should be able to go to short-term rehab as soon as a bed is available with surgery scheduled per Dr. Yuan. Navxmlji-Dnoe-Osjhh have been stable. Continue current regimen. Hypertension-blood pressures are still quite variable. This may likely be due to variations in pain. Not enough consistency to alter medication regimen at this point. 02/05/2020 Ankle fracture-the fracture dislocated again today. The patient had eaten and so she is not a candidate for the operating room today. Dr. Yuan discussed the case with Dr. madrigal. Dr. Garcia will be covering. Possible application of ex-fix tomorrow or Sunday. I have ordered laboratory studies including a pro time in anticipation of surgery within the next 24 to 48 hours. We will continue ice to the ankle. Cellulitis-we will continue the cefazolin for left leg cellulitis. It is scheduled to end on the . This will cover the surgical window. The patient will need placement at skilled once her ex-fix is in place. Diabetes qeljqdfh-Ybtj-Hjwpe are mostly below 150. Continue current regimen. Hypertension-blood pressures under reasonable control. Will continue current regimen and hold off on any adjustments for the time being. The patient is on chronic prednisone therapy for inflammatory bowel. It is likely she has osteoporosis. I will consider Miacalcin to possibly help with bone healing. Will discuss with orthopedic surgery. Elevated transaminases and bilirubin. Recheck CMP tomorrow 02/06/2020 Left ankle fracture-scheduled for external fixation application today. Dr. Garcia will be performing the surgery. Will be able to go to assisted facility after the surgery. Will discuss with orthopedics how long they would like inpatient monitoring prior to transfer. Laboratory studies performed this morning. No contraindications to surgery. Ankle pain is reasonably controlled Hypomagnesemia-serum magnesium was low at 1.5. Will start oral magnesium. No need for intravenous supplement at this time. Dysuria-the patient does not have an indwelling catheter. She has been on cefazolin. I did asked the nurse to obtain a urinalysis with reflex to culture. Pyridium will not be available as needed. No change in antibiotics at this time. Changes will be based on urine culture results. Rhabdomyolysis, elevated bilirubin, elevated transaminases-all are now resolved based on laboratory studies. Hyperglycemia due to diabetes-on current regimen she was actually slightly low today. She is n.p.o. for surgery. Most of her Accu-Cheks have been below 150. Last night she was 177 possibly contributing to slightly low glucose this morning. Repeat Accu-Chek was 82. Continue Accu-Cheks with sliding scale. Hypertension-blood pressures are still variable. No changes preoperatively. If blood pressures are still elevated later today and tomorrow we will adjust medications. 02/07/[address] Physical therapy is working with the patient. She actually has the external fixator placed yesterday by Dr. Camacho. She continues to complain of pain. Ffuf-yrnkanqb-jugioqmvh on oral magnesium supplementation. Recheck magnesium tomorrow. Dysuria-urinalysis did not need to reflex to culture. Continue Pyridium as needed. Diabetes-adjustments in medication have now resulted in reasonable glucose control. Continue current regimen. Hypertension-no changes in medication as her blood pressure still very. Rhabdomyolysis, elevated bilirubin and elevated transaminase levels-resolved Anticipate the ability to transfer to assisted on Sunday02/08/2020 Once again she complains about significant pain however she is swinging her leg around the bed. Upon entry into the room she was talking to a cousin on the phone without any evidence of distress. She does complain about the pin sites. I will ask orthopedic surgery to implement pin site cleaning regimen. Patient continues with good glucose control. No change to the treatment plan. Consistent blood pressures. No change in treatment plan. Anticipate transfer to assisted in 24 to 48 hours - Time Time Spent with patient: 15-24 minutes Medications reviewed and adjusted accordingly: Yes Anticipated Discharge Disposition: [facility] Facility Anticipated Discharge Timeframe: within 48 hours
[2020-02-09] MEDS: OXYCODONE-ACETAMINOPHEN 5-325 MG TABLET PO PRN ×5 (00:11→19:53)
[2020-02-09] MEDS: GABAPENTIN 300 MG CAPSULE PO SCH ×3 (05:08→22:53)
[2020-02-09] MEDS: OXYCODONE HCL IR 5 MG TABLET PO SCH ×3 (05:08→22:53)
[2020-02-09] MEDS: HEPARIN SOD (PORCINE) 5,000 UNIT/ML 1 ML VIAL SUBCUT SCH ×3 (05:09→22:54)
[2020-02-09] MEDS: INSULIN LISPRO 100 UNIT/ML 3 ML VIAL SUBCUT SCH ×3 (08:29→16:48)
[2020-02-09] MEDS: MAGNESIUM OXIDE 400 MG TABLET PO SCH ×2 (09:22→18:24)
[2020-02-09] MEDS: FAMOTIDINE 20 MG TABLET PO SCH ×2 (09:24→22:53)
[2020-02-09] MEDS: DOCUSATE SODIUM 100 MG CAPSULE PO SCH ×3 (09:25→18:14)
[2020-02-09] MEDS: METHADONE HCL 10 MG TABLET PO SCH ×2 (09:26→22:53)
[2020-02-09] MEDS: BACLOFEN 10 MG TABLET PO SCH ×2 (09:26→22:52)
[2020-02-09] MEDS: NADOLOL 40 MG TABLET PO SCH ×2 (09:27→22:59)
[2020-02-09] MEDS: PREDNISONE 5 MG TABLET PO SCH ×2 (09:28→18:24)
[2020-02-09] MEDS: CALCITONIN,SALMON 6000 UNIT/30 SPRAY 3.7 ML NASL SCH (10:55)
[2020-02-09] MEDS: NORMAL SALINE 1000 ML 1,000 ML IV PRN ×2 (11:28→22:52)
--- NOTE | 2020-02-09 13:12 | PDOC PROGRESS REPORT ---
Subjective Progress Note for:: 02/09/20 Subjective:: Patient doing well this AM. No acute events overnight. pain well controlled. Reason For Visit: LEFT ANKLE FRACTURE,CHRONIC PAIN,ARRHYTHMIA, Physical Exam Vital Signs: Temp Pulse Resp BP Pulse Ox 97.7 F 70 18 143/52 H 91 L 02/09/20 12:00 02/09/20 12:00 02/09/20 12:00 02/09/20 12:00 02/09/20 12:00 Intake & Output 02/08/20 02/09/20 02/10/20 06:59 06:59 06:59 Intake Total 584 055 4958 Balance 136 415 9536 Weight 75.2 kg 75.2 kg Physical Exam: NAD, AOX3 LLE - Dressings C/D/I - Skin with resolving fracture blisters, improved swelling - no signs of infection at pin sites - NVI Results Laboratory Results: 02/07/20 04:23 02/07/20 04:23 01/31/20 02/02/20 02/03/20 23:45 04:58 04:35 Creatine Kinase 810 H 200 H 96 02/07/20 04:23 Creatine Kinase 34 Impressions: Chest X-Ray 02/01/20 00:00 IMPRESSION: 1. Blunting of left costophrenic angle may indicate a small left pleural effusion versus pleural parenchymal scarring. 2. Diffusely decreased bone mineral density. Fracture deformity of the right proximal humerus is incompletely evaluated with this technique, detailed on prior CT October 17, 2019. Stable left rib fracture deformities are again noted. Facial Bones CT 02/01/20 00:04 IMPRESSION: No acute bony injury is seen to the face. Head CT 02/01/20 00:04 IMPRESSION: No acute intracranial process is identified. Cervical Spine CT 02/01/20 00:06 IMPRESSION: No acute findings. Tibia/Fibula X-Ray 02/01/20 00:06 IMPRESSION: No acute bony injury to the proximal leg. Ankle has been imaged separately. Humerus X-Ray 02/01/20 03:44 IMPRESSION: Fracture deformity of the right proximal humerus again demonstrated. Alignment of the glenohumeral joint is difficult to assess on this exam. No obvious acute fracture visualized. Ankle X-Ray 02/06/20 00:00 IMPRESSION: IMAGE(S) OBTAINED DURING PROCEDURE. Fluoroscopy 09/18/20 00:00 IMPRESSION: IMAGE(S) OBTAINED DURING PROCEDURE. Assessment & Plan - Diagnosis (1) Closed trimalleolar fracture of left ankle Qualifiers: Encounter type: subsequent encounter Fracture healing: with routine healing Qualified Code(s): S82.852D - Displaced trimalleolar fracture of left lower leg, subsequent encounter for closed fracture with routine healing Is this a current diagnosis for this admission?: Yes Plan: - CT scan for further surgical planning - NWB LLE - Pin site care per destination protocol - DVT PPX per medicine - Follow in my office in 7-10 days for further surgical planning (2) Closed fracture of right proximal humerus Is this a current diagnosis for this admission?: Yes - Time Time Spent with patient: Less than 15 minutes
--- NOTE | 2020-02-09 14:39 | PDOC PROGRESS REPORT ---
Subjective Progress Note for:: 02/09/20 Subjective:: The patient saw Dr. Yuan. She continues to complain about pain. She states that she is on just enough medicine to avoid withdrawal but does not get significant pain relief. Her transition to prison facility is currently being held up with an insurance issue. Reason For Visit: LEFT ANKLE FRACTURE,CHRONIC PAIN,ARRHYTHMIA, Physical Exam Vital Signs: Temp Pulse Resp BP Pulse Ox 97.7 F 70 18 143/52 H 91 L 02/09/20 12:00 02/09/20 12:00 02/09/20 12:00 02/09/20 12:00 02/09/20 12:00 Intake & Output 02/08/20 02/09/20 02/10/20 06:59 06:59 06:59 Intake Total 969 732 3539 Balance 370 965 0068 Weight 75.2 kg 75.2 kg General appearance: PRESENT: no acute distress, cooperative, well-developed Head exam: PRESENT: atraumatic, normocephalic Ear exam: PRESENT: normal external ear exam. ABSENT: bleeding, drainage Mouth exam: PRESENT: moist, tongue midline Teeth exam: PRESENT: other - Dentures in place Respiratory exam: PRESENT: clear to auscultation char, symmetrical, unlabored. ABSENT: prolonged expiratory phas, rales, rhonchi, tachypnea, wheezes Cardiovascular exam: PRESENT: RRR, +S1, +S2. ABSENT: bradycardia, diastolic murmur, irregular rhythm, systolic murmur, tachycardia GI/Abdominal exam: PRESENT: normal bowel sounds, soft. ABSENT: tenderness Rectal exam: PRESENT: deferred Gentrourinary exam: ABSENT: indwelling catheter Extremities exam: PRESENT: other - External fixator left ankle. ABSENT: pedal edema Neurological exam: PRESENT: alert, awake, oriented to person, oriented to place, oriented to time, oriented to situation, CN II-XII grossly intact. ABSENT: altered Psychiatric exam: PRESENT: appropriate affect. ABSENT: agitated, anxious Focused psych exam: ABSENT: delusional, paranoid, restlessness Skin exam: PRESENT: dry, pallor, warm Results Laboratory Results: 02/07/20 04:23 02/07/20 04:23 01/31/20 02/02/20 02/03/20 23:45 04:58 04:35 Creatine Kinase 810 H 200 H 96 02/07/20 04:23 Creatine Kinase 34 Impressions: Chest X-Ray 02/01/20 00:00 IMPRESSION: 1. Blunting of left costophrenic angle may indicate a small left pleural effusion versus pleural parenchymal scarring. 2. Diffusely decreased bone mineral density. Fracture deformity of the right proximal humerus is incompletely evaluated with this technique, detailed on prior CT October 17, 2019. Stable left rib fracture deformities are again noted. Facial Bones CT 02/01/20 00:04 IMPRESSION: No acute bony injury is seen to the face. Head CT 02/01/20 00:04 IMPRESSION: No acute intracranial process is identified. Cervical Spine CT 02/01/20 00:06 IMPRESSION: No acute findings. Tibia/Fibula X-Ray 02/01/20 00:06 IMPRESSION: No acute bony injury to the proximal leg. Ankle has been imaged separately. Humerus X-Ray 02/01/20 03:44 IMPRESSION: Fracture deformity of the right proximal humerus again demonstrated. Alignment of the glenohumeral joint is difficult to assess on this exam. No obvious acute fracture visualized. Ankle X-Ray 02/06/20 00:00 IMPRESSION: IMAGE(S) OBTAINED DURING PROCEDURE. Fluoroscopy 02/06/20 00:00 IMPRESSION: IMAGE(S) OBTAINED DURING PROCEDURE. Assessment and Plan - Diagnosis (1) Metabolic encephalopathy Is this a current diagnosis for this admission?: Yes (2) Fall Qualifiers: Encounter type: initial encounter Qualified Code(s): W19.XXXA - Unspecified fall, initial encounter Is this a current diagnosis for this admission?: Yes (3) Closed left ankle fracture Qualifiers: Encounter type: subsequent encounter Fracture healing: with routine healing Qualified Code(s): S82.892D - Other fracture of left lower leg, subsequent encounter for closed fracture with routine healing Is this a current diagnosis for this admission?: Yes (4) Rhabdomyolysis Qualifiers: Rhabdomyolysis type: traumatic Encounter type: initial encounter Qualified Code(s): T79.6XXA - Traumatic ischemia of muscle, initial encounter Is this a current diagnosis for this admission?: Yes (5) Dehydration Is this a current diagnosis for this admission?: Yes (6) Elevated transaminase level Is this a current diagnosis for this admission?: Yes (7) Hyperbilirubinemia Is this a current diagnosis for this admission?: Yes (8) Cellulitis Qualifiers: Site of cellulitis: extremity Site of cellulitis of extremity: lower extr emity Laterality: left Qualified Code(s): L03.116 - Cellulitis of left lower limb Is this a current diagnosis for this admission?: Yes (9) Hyperglycemia due to diabetes mellitus Is this a current diagnosis for this admission?: Yes (10) Intractable back pain Is this a current diagnosis for this admission?: Yes (11) Chronically on opiate therapy Is this a current diagnosis for this admission?: Yes (12) Chronic obstructive pulmonary disease Qualifiers: Chronic bronchitis type: unspecified Is this a current diagnosis for this admission?: Yes (13) Atelectasis Is this a current diagnosis for this admission?: Yes (14) Positive blood culture Is this a current diagnosis for this admission?: Yes (15) Hypomagnesemia Is this a current diagnosis for this admission?: Yes (16) Dysuria Is this a current diagnosis for this admission?: Yes - Plan Summary Summary: 02/03/2020 Admitted the patient therefore am familiar with her case. I also discussed the case with Dr. Yuan today. The best case scenario would be prison for rehab and protecting the left ankle. The front of the cast has been cut open to create a window to look at the skin. There is erythema but the patient has been on antibiotics. She did have 1 blood culture bottle positive but this may likely be a contaminant. She still complains of pain in the ankle. The possibility of infection/cellulitis in the leg does not allow safe application of an external fixator. Ideally the patient should go to rehab for several weeks to regain s trength and improve her balance and then orthopedic surgery can provide more definitive treatment for the unstable ankle fracture. Contact was made with her chronic pain management providers. She is currently on a regimen of their suggestion. She also needs to start participating in physical therapy since she does fall a lot at home. Some of this might be due to her medications. 02/04/2020 The patient was actually complementary of the physical therapist today. Now that she has someone to watch her dog she is amenable to short-term rehab prior to definitive surgery for her ankle. She has had multiple falls in the past. This certainly could be related to pain medication, clutter in the apartment with high risk areas for falls and poor gait. The patient will need rehab to strengthen and improve her balance. She currently is nonweightbearing for the left leg. This stronger she can get before surgery the better. She in fact should be able to go to short-term rehab as soon as a bed is available with surgery scheduled per Dr. Yuan. Ptbfamru-Wlyx-Kjduz have been stable. Continue current regimen. Hypertension-blood pressures are still quite variable. This may likely be due to variations in pain. Not enough consistency to alter medication regimen at this point. 02/05/2020 Ankle fracture-the fracture dislocated again today. The patient had eaten and so she is not a candidate for the operating room today. Dr. Yuan discussed the case with Dr. madrigal. Dr. Garcia will be covering. Possible application of ex-fix tomorrow or Sunday. I have ordered laboratory studies including a pro time in anticipation of surgery within the next 24 to 48 hours. We will continue ice to the ankle. Cellulitis-we will continue the cefazolin for left leg cellulitis. It is scheduled to end on the . This will cover the surgical window. The patient will need placement at [facility] once her ex-fix is in place. Diabetes ysgayued-Dujf-Eilvt are mostly below 150. Continue current regimen. Hypertension-blood pressures under reasonable control. Will continue current regimen and hold off on any adjustments for the time being. The patient is on chronic prednisone therapy for inflammatory bowel. It is likely she has osteoporosis. I will consider Miacalcin to possibly help with b one healing. Will discuss with orthopedic surgery. Elevated transaminases and bilirubin. Recheck CMP tomorrow 02/06/2020 Left ankle fracture-scheduled for external fixation application today. Dr. Dario plummer will be performing the surgery. Will be able to go to prison facility after the surgery. Will discuss with orthopedics how long they would like inpatient monitoring prior to transfer. Laboratory studies performed this morning. No contraindications to surgery. Ankle pain is reasonably controlled Hypomagnesemia-serum magnesium was low at 1.5. Will start oral magnesium. No need for intravenous supplement at this time. Dysuria-the patient does not have an indwelling catheter. She has been on cefazolin. I did asked the nurse to obtain a urinalysis with reflex to culture. Pyridium will not be available as needed. No change in antibiotics at this time. Changes will be based on urine culture results. Rhabdomyolysis, elevated bilirubin, elevated transaminases-all are now resolved based on laboratory studies. Hyperglycemia due to diabetes-on current regimen she was actually slightly low today. She is n.p.o. for surgery. Most of her Accu-Cheks have been below 150. Last night she was 177 possibly contributing to slightly low glucose this morning. Repeat Accu-Chek was 82. Continue Accu-Cheks with sliding scale. Hypertension-blood pressures are still variable. No changes preoperatively. If blood pressures are still elevated later today and tomorrow we will adjust medications. 02/07/[address] Physical therapy is working with the patient. She actually has the external fixator placed yesterday by Dr. Camacho. She continues to complain of pain. Kjfl-mtzigips-[id number] on oral magnesium supplementation. Recheck magnesium tomorrow. Dysuria-urinalysis did not need to reflex to culture. Continue Pyridium as needed. Diabetes-adjustments in medication have now resulted in reasonable glucose control. Continue current regimen. Hypertension-no changes in medication as her blood pressure still very. Rhabdomyolysis, elevated bilirubin and elevated transaminase levels-resolved Anticipate the ability to transfer to prison on Sunday02/08/2020 Once again she complains about significant pain however she is swinging her leg around the bed. Upon entry into the room she was talking to a cousin on the phone without any evidence of distress. She does complain about the pin sites. I will ask orthopedic surgery to implement pin site cleaning regimen. Patient continues with good glucose control. No change to the treatment plan. Consistent blood pressures. No change in treatment plan. Anticipate transfer to prison in 24 to 48 hours 02/09/2020 The patient was seen by Dr. Yuan. He ordered a CT scan to see what options there might be for definitive treatment. There is a possibility she may need to be in the ex fix until she gets bone healing with no other option to repair the ankle. He did unwrap the dressing and provide care for the skin sites from the pins of the external fixator. The patient complains of pain but I feel it is reasonably controlled at this time. No other pain medications. Diabetes mellitus-continue to monitor Accu-Cheks. No further episodes of hypoglycemia. Ankle fracture-surgical intervention as noted above. The patient needs to transfer to prison to maximize her recovery. I was notified by discharge planning that there is an insurance issue. Discharge planning is working to find a facility to accept the patient. - Time Time Spent with patient: 15-24 minutes Medications reviewed and adjusted accordingly: Yes Anticipated Discharge Disposition: [facility] Anticipated Discharge Timeframe: within 72 hours
--- NOTE | 2020-02-09 16:03 | RADIOLOGY REPORT (SQ) ---
EXAM DESCRIPTION: CT LT LOWER EXTREMITY WITHOUT IMAGES COMPLETED DATE/TIME: 02/09/2020 3:32 pm REASON FOR STUDY: fracture COMPARISON: Radiographs 02/06/2020. TECHNIQUE: Axial imaging performed through the left ankle with reformatted coronal and sagittal imag ing windowed for bone and soft tissues. Images saved to PACS. 3D IMAGING: Were 3D images as MIP, SSD, or volume rendering performed at the work station? Yes All CT scanners at this facility use dose modulation, iterative reconstruction, and/or weight based d osing when appropriate to reduce radiation dose to as low as reasonably achievable (ALARA). [facility]: Dose Right [facility]: CareDose [facility]: Dose Right [facility]: Teradose 4D [facility]: [employer] LIMITATIONS: Streak artifact related to external fixation. RADIATION DOSE: CT Rad equipment meets quality standard of care and radiation dose reduction techniq ues were employed. CTDIvol: 4.6 mGy. DLP: 104 mGy-cm. mGy. FINDINGS: SOFT TISSUES: Deep soft tissue edema and joint effusion. BONES: Extensive comminuted fracture deformity through the posterior tibial malleolus. The posterior tibial plafond (approximately 50% of the articular surface, close to 1 cm in the AP plane) is disrup shaquille, displaced superiorly and slightly rotated posteriorly. Severely comminuted medial malleolus fra cture. Severely comminuted lateral malleolus fracture with extension well above the mortise. The ta lar dome is intact. No hindfoot fracture detected. MINERALIZATION: Normal. OTHER: No other significant finding. IMPRESSION: Severe ankle fractures as above. The posterior half of the tibial plafond is deficient, rotated and displaced. TECHNICAL DOCUMENTATION: JOB ID: [id number] Quality ID # [id number]: Final reports with documentation of one or more dose reduction techniques (e.g., Au tomated exposure control, adjustment of the mA and/or kV according to patient size, use of iterative reconstruction technique) 2010 [employer]- All Rights Reserved Reading location - IP/workstation name: [email or web address]
[2020-02-10] MEDS: INSULIN LISPRO 100 UNIT/ML 3 ML VIAL SUBCUT SCH ×5 (00:05→21:51)
[2020-02-10] MEDS: OXYCODONE-ACETAMINOPHEN 5-325 MG TABLET PO PRN ×4 (03:12→21:43)
[2020-02-10] MEDS: ONDANSETRON 4 MG TAB.RAPDIS SL PRN (03:39)
[2020-02-10] MEDS: HEPARIN SOD (PORCINE) 5,000 UNIT/ML 1 ML VIAL SUBCUT SCH ×3 (05:18→21:43)
[2020-02-10] MEDS: GABAPENTIN 300 MG CAPSULE PO SCH ×3 (05:18→21:43)
[2020-02-10] MEDS: OXYCODONE HCL IR 5 MG TABLET PO SCH (05:18)
[2020-02-10 05:37] LABS: ALBUMIN 3.4 g/dL (3.5-5.0); ALKALINE PHOSPHATASE 106 U/L (38-126); ANION GAP 7 (5-19); ASPARTATE AMINO TRANSFERASE 25 U/L (14-36); BILIRUBIN,DIRECT 0.4 mg/dL (0.0-0.4); BILIRUBIN,TOTAL 0.6 mg/dL (0.2-1.3); BLOOD UREA NITROGEN 19 mg/dL (7-20); CALCIUM 8.9 mg/dL (8.4-10.2); CARBON DIOXIDE 28 mmol/L (22-30); CHLORIDE 106 mmol/L (98-107); GLUCOSE 107 mg/dL (75-110); POTASSIUM 4.9 mmol/L (3.6-5.0); TOTAL PROTEIN 6.7 g/dL (6.3-8.2)
[2020-02-10 07:46] LABS: ABSOLUTE BASOPHILS # (AUTO) 0.1 10^3/uL (0.0-0.2); ABSOLUTE EOSINOPHILS # (AUTO) 0.1 10^3/uL (0.0-0.6); ABSOLUTE LYMPHOCYTES (AUTO) 1.5 10^3/uL (0.5-4.7); ABSOLUTE MONOCYTES (AUTO) 0.4 10^3/uL (0.1-1.4); HEMOGLOBIN 8.6 g/dL (12.0-15.5); TOTAL CELLS COUNTED % (AUTO) 100 %
[2020-02-10 08:19] LABS: ABSOLUTE NEUT (AUTO) 4.2 10^3/uL (1.7-8.2); BASOPHILS % (AUTO) 0.9 % (0-2); EOSINOPHILS % (AUTO) 1.7 % (0-6); HEMATOCRIT 25.2 % (36.0-47.0); LYMPHOCYTES % (AUTO) 24.5 % (13-45); MEAN CORPUSCULAR HEMOGLOBIN 28.2 pg (27.0-33.4); MEAN CORPUSCULAR HGB CONC 34.1 g/dL (32.0-36.0); MEAN CORPUSCULAR VOLUME 83 fl (80-97); MONOCYTES % (AUTO) 6.4 % (3-13); PLATELET COUNT 265 10^3/uL (150-450); RED BLOOD COUNT 3.04 10^6/uL (3.72-5.28); RED CELL DISTRIBUTION WIDTH 18.2 % (11.5-14.0); SEGMENTED NEUTROPHILS % (AUTO) 66.5 % (42-78); WHITE BLOOD COUNT 6.2 10^3/uL (4.0-10.5)
[2020-02-10] MEDS: FAMOTIDINE 20 MG TABLET PO SCH ×2 (09:27→21:43)
[2020-02-10] MEDS: METHADONE HCL 10 MG TABLET PO SCH ×2 (09:28→21:43)
[2020-02-10] MEDS: MAGNESIUM OXIDE 400 MG TABLET PO SCH ×2 (09:29→17:48)
[2020-02-10] MEDS: NADOLOL 40 MG TABLET PO SCH ×2 (09:30→21:43)
[2020-02-10] MEDS: BACLOFEN 10 MG TABLET PO SCH ×2 (09:31→21:43)
[2020-02-10] MEDS: PREDNISONE 5 MG TABLET PO SCH ×2 (09:31→17:48)
[2020-02-10] MEDS: NORMAL SALINE 1000 ML 1,000 ML IV PRN (09:41)
[2020-02-10] MEDS: DOCUSATE SODIUM 100 MG CAPSULE PO SCH ×2 (09:46→17:46)
[2020-02-10] MEDS: CALCITONIN,SALMON 6000 UNIT/30 SPRAY 3.7 ML NASL SCH (10:44)
--- NOTE | 2020-02-10 11:32 | PDOC PROGRESS REPORT ---
Subjective Progress Note for:: 02/10/20 Subjective:: 64 year old female with a history of diabetes, COPD, irregular heartbeat and chronic pain presents with a fall that she had likely 2 days ago. She lives in a local motel. She has had multiple falls previously. She is on high doses of chronic narcotic analgesia and this could be contributing. X-rays reveal a new fracture of the left ankle. She has a chronic right shoulder fracture displacement that is not new. She does have multiple bruises. Her BUN is high and she is likely dehydrated. She is also hyperglycemic and she does have a history of diabetes. She is having meaningful interaction although she does perseverate about her pain medications as well as wanting the Terrell catheter removed. Her BUN is elevated and she is likely dehydrated. She will be admitted by the hospitalist service. She has a history of arrhythmia so she will be monitored on telemetry. Dr. Yuan will be addressing the fractures. 02/10/[id number]-blum-old female with history of chronic pain syndrome admitted after a fall found to have a closed trimalleolar fracture of the left ankle. Reduction and application of the external fixator was done on . pt is nonweightbearing. Waiting for placement. Reason For Visit: LEFT ANKLE FRACTURE,CHRONIC PAIN,ARRHYTHMIA, Physical Exam Vital Signs: Temp Pulse Resp BP Pulse Ox 97.8 F 68 20 121/69 96 02/10/20 08:04 02/10/20 08:04 02/10/20 08:04 02/10/20 08:04 02/10/20 08:04 Intake & Output 02/09/20 02/10/20 02/11/20 06:59 06:59 06:59 Intake Total 880 2348 1000 Balance 880 2348 1000 Weight 75.2 kg 75.2 kg General appearance: PRESENT: no acute distress, well-developed Head exam: PRESENT: atraumatic Eye exam: PRESENT: PERRLA Mouth exam: PRESENT: moist, tongue midline Neck exam: ABSENT: carotid bruit, JVD, lymphadenopathy, thyromegaly Respiratory exam: PRESENT: decreased breath sounds Cardiovascular exam: PRESENT: RRR. ABSENT: diastolic murmur, rubs, systolic murmur Pulses: PRESENT: normal dorsalis pedis pul GI/Abdominal exam: PRESENT: normal bowel sounds, soft. ABSENT: distended, guarding, mass, organolmegaly, rebound, tenderness Rectal exam: PRESENT: deferred Extremities exam: PRESENT: other - Left lower leg with external fixator present. Neurological exam: PRESENT: alert, awake, oriented to person, oriented to place, oriented to time, oriented to situation, CN II-XII grossly intact. ABSENT: motor sensory deficit Psychiatric exam: PRESENT: appropriate affect, normal mood. ABSENT: homicidal ideation, suicidal ideation Results Laboratory Results: 02/10/20 07:05 02/10/20 04:29 02/10/20 02/10/20 02/10/20 04:29 04:29 07:05 WBC Cancelled 6.2 RBC Cancelled 3.04 L Hgb Cancelled 8.6 L Hct Cancelled 25.2 L MCV Cancelled 83 MCH Cancelled 28.2 MCHC Cancelled 34.1 RDW Cancelled 18.2 H Plt Count Cancelled 265 Seg Neutrophils % Cancelled 66.5 Sodium 140.9 Potassium 4.9 Chloride 106 Carbon Dioxide 28 Anion Gap 7 BUN 19 Creatinine 0.77 Est GFR ( Amer) > 60 Glucose 107 Calcium 8.9 Magnesium 1.9 Total Bilirubin 0.6 AST 25 Alkaline Phosphatase 106 Total Protein 6.7 Albumin 3.4 L 01/31/20 02/02/20 02/03/20 23:45 04:58 04:35 Creatine Kinase 810 H 200 H 96 02/07/20 04:23 Creatine Kinase 34 Impressions: Chest X-Ray 02/01/20 00:00 IMPRESSION: 1. Blunting of left costophrenic angle may indicate a small left pleural effusion versus pleural parenchymal scarring. 2. Diffusely decreased bone mineral density. Fracture deformity of the right proximal humerus is incompletely evaluated with this technique, detailed on prior CT October 17, 2019. Stable left rib fracture deformities are again noted. Facial Bones CT 02/01/20 00:04 IMPRESSION: No acute bony injury is seen to the face. Head CT 02/01/20 00:04 IMPRESSION: No acute intracranial process is identified. Cervical Spine CT 02/01/20 00:06 IMPRESSION: No acute findings. Tibia/Fibula X-Ray 02/01/20 00:06 IMPRESSION: No acute bony injury to the proximal leg. Ankle has been imaged separately. Humerus X-Ray 02/01/20 03:44 IMPRESSION: Fracture deformity of the right proximal humerus again demonstrated. Alignment of the glenohumeral joint is difficult to assess on this exam. No obvious acute fracture visualized. Ankle X-Ray 02/06/20 00:00 IMPRESSION: IMAGE(S) OBTAINED DURING PROCEDURE. Fluoroscopy 02/06/20 00:00 IMPRESSION: IMAGE(S) OBTAINED DURING PROCEDURE. Lower Extremity CT 02/09/20 00:00 IMPRESSION: Severe ankle fractures as above. The posterior half of the tibial plafond is deficient, rotated and displaced. Assessment and Plan - Diagnosis (1) Metabolic encephalopathy Is this a current diagnosis for this admission?: Yes Plan: Resolved; patient is alert and oriented x4 Her encephalopathy could be related to her elevated BUN. She does have mildly elevated transaminases and bilirubin. In addition she is on large doses of chronic narcotic therapy which could also be contributing. Continue IV fluids. Continue home pain medication regiment, though at appropriate dosing intervals. Treatment of potential cellulitis with IV antibiotics. Supportive care. 02/10/2020-patient admitted with acute metabolic encephalopathy may be secondary to chronic narcotic use. Acute metabolic encephalopathy is resolved comfortably in the bed communicating well. (2) Closed fracture of right proximal humerus Is this a current diagnosis for this admission?: Yes (3) Closed left ankle fracture Qualifiers: Encounter type: subsequent encounter Fracture healing: with routine healing Qualified Code(s): S82.892D - Other fracture of left lower leg, subsequent encounter for closed fracture with routine healing Is this a current diagnosis for this admission?: Yes Plan: Orthopedics is consulted. Primary management per Dr. Yuan. Per his note; will defer any surgical intervention for 2 to 3 days due to cellulitis-like appearance of left lower extremity. Cultures and antibiotics as above. 02/10/2020-patient admitted with closed fracture of the left ankle status post reduction with external fixator. Patient is nonweightbearing. Waiting for placement. (4) Chronically on opiate therapy Is this a current diagnosis for this admission?: Yes Plan: Through [place] [facility] [place] controlled substance database reviewed; patient is prescribed methadone 10 mg mg twice daily #60 and oxycodone 30 mg tab #45. She is placed on a regiment of methadone 10 mg twice daily and oxycodone 15 mg every 8 hours Will allow for oxycodone 5 mg every 6 hours as needed breakthrough pain se condary to her acute left leg fracture (5) Dysuria Is this a current diagnosis for this admission?: Yes Plan: 02/10/2020-it was resolved. (6) Chronic obstructive pulmonary disease Qualifiers: Chronic bronchitis type: unspecified Is this a current diagnosis for this admission?: Yes Plan: The patient has a history of COPD. Stable and without exacerbation at this time. Supplemental oxygen as needed. As needed nebulizer treatments. Encourage pulmonary toilet with incentive spirometer and flutter valve. No indications for steroid therapy at this time. 02/10/2020-patient has history of COPD. Pulse ox is 95% room air. On examin ation chest bilateral entry was decreased no wheezing no crepitations present. - Plan Summary Summary: 02/03/2020 Admitted the patient therefore am familiar with her case. I also discussed the case with Dr. Yuan today. The best case scenario would be custodial for rehab and protecting the left ankle. The front of the cast has been cut open to create a window to look at the skin. There is erythema but the patient has been on antibiotics. She did have 1 blood culture bottle positive but this may likely be a contaminant. She still complains of pain in the ankle. The possibility of infection/cellulitis in the leg does not allow safe application of an external fixator. Ideally the patient should go to rehab for several weeks to regain strength and improve her balance and then orthopedic surgery can provide more definitive treatment for the unstable ankle fracture. Contact was made with her chronic pain management providers. She is currently on a regimen of their suggestion. She also needs to start participating in physical therapy since she does fall a lot at home. Some of this might be due to her medications. 02/04/2020 The patient was actually complementary of the physical therapist today. Now that she has someone to watch her dog she is amenable to short-term rehab prior to definitive surgery for her ankle. She has had multiple falls in the past. This certainly could be related to pain medication, clutter in the apartment with high risk areas for falls and poor gait. The patient will need rehab to strengthen and improve her balance. She currently is nonweightbearing for the left leg. This stronger she can get befo re surgery the better. She in fact should be able to go to short-term rehab as soon as a bed is av lable with surgery scheduled per Dr. Yuan. Vmbalzji-Mevi-Hhlue have been stable. Continue current regimen. Hypertension-blood pressures are still quite variable. This may likely be due to variations in pain. Not enough consistency to alter medication regimen at this point. 02/05/2020 Ankle fracture-the fracture dislocated again today. The patient had eaten and so she is not a candidate for the operating room today. Dr. Yuan discussed the case with Dr. madrigal. Dr. Garcia will be covering. Possible application of ex-fix tomorrow or Sunday. I have ordered laboratory studies including a pro time in anticipation of surgery within the next 24 to 48 hours. We will continue ice to the ankle. Cellulitis-we will continue the cefazolin for left leg cellulitis. It is scheduled to end on the . This will cover the surgical window. The patient will need placement at [facility] once her ex-fix is in place. Diabetes [id number] are mostly below 150. Continue current regimen. Hypertension-blood pressures under reasonable control. Will continue current regimen and hold off on any adjustments for the time being. The patient is on chronic prednisone therapy for inflammatory bowel. It is likely she has osteoporosis. I will consider Miacalcin to possibly help with bone healing. Will discuss with orthopedic surgery. Elevated transaminases and bilirubin. Recheck CMP tomorrow 02/06/2020 Left ankle fracture-scheduled for external fixation application today. Dr. Garcia will be performing the surgery. Will be able to go to custodial facility after the surgery. Will discuss with orthopedics how long they would like inpatient monitoring prior to transfer. Laboratory studies performed this morning. No contraindications to surgery. Ankle pain is reasonably controlled Hypomagnesemia-serum magnesium was low at 1.5. Will start oral magnesium. No need for intravenous supplement at this time. Dysuria-the patient does not have an indwelling catheter. She has been on cefazolin. I did asked the nurse to obtain a urinalysis with reflex to culture. Pyridium will not be available as needed. No change in antibiotics at this time. Changes will be based on urine culture results. Rhabdomyolysis, elevated bilirubin, elevated transaminases-all are now resolved based on laboratory studies. Hyperglycemia due to diabetes-on current regimen she was actually slightly low today. She is n.p.o. for surgery. Most of her Accu-Cheks have been below 150. Last night she was 177 possibly contributing to slightly low glucose this morning. Repeat Accu-Chek was 82. Continue Accu-Cheks with sliding scale. Hypertension-blood pressures are still variable. No changes preoperatively. If blood pressures are still elevated later today and tomorrow we will adjust medications. 02/07/[address] Physical therapy is working with the patient. She actually has the external fixator placed yesterday by Dr. Camacho. She continues to complain of pain. Sged-[id number] on oral magnesium supplementation. Recheck magnesium tomorrow. Dysuria-urinalysis did not need to reflex to culture. Continue Pyridium as needed. Diabetes-adjustments in medication have now resulted in reasonable glucose control. Continue current regimen. Hypertension-no changes in medication as her blood pressure still very. Rhabdomyolysis, elevated bilirubin and elevated transaminase levels-resolved Anticipate the ability to transfer to custodial on Sunday02/08/2020 Once again she complains about significant pain however she is swinging her leg around the bed. Upon entry into the room she was talking to a cousin on the phone without any evidence of distress. She does complain about the pin sites. I will ask orthopedic surgery to implement pin site cleaning regimen. Patient continues with good glucose control. No change to the treatment plan. Consistent blood pressures. No change in treatment plan. Anticipate transfer to custodial in 24 to 48 hours 02/09/2020 The patient was seen by Dr. Yuan. He ordered a CT scan to see what options there might be for definitive treatment. There is a possibility she may need to be in the ex fix until she gets bone healing with no other option to repair the ankle. He did unwrap the dressing and provide care for the skin sites from the pins of the external fixator. The patient complains of pain but I feel it is reasonably controlled at this time. No other pain medications. Diabetes mellitus-continue to monitor Accu-Cheks. No further episodes of hypoglycemia. Ankle fracture-surgical intervention as noted above. The patient needs to transfer to custodial to maximize her recovery. I was notified by discharge planning that there is an insurance issue. Discharge planning is wo rking to find a facility to accept the patient. - Time Anticipated Discharge Disposition: Shelter Facility Anticipated Discharge Timeframe: within 48 hours
[2020-02-11] MEDS: OXYCODONE-ACETAMINOPHEN 5-325 MG TABLET PO PRN ×4 (02:37→20:53)
[2020-02-11] MEDS: METHADONE HCL 10 MG TABLET PO SCH ×3 (05:27→22:58)
[2020-02-11] MEDS: HEPARIN SOD (PORCINE) 5,000 UNIT/ML 1 ML VIAL SUBCUT SCH ×3 (05:28→23:00)
[2020-02-11] MEDS: GABAPENTIN 300 MG CAPSULE PO SCH ×3 (05:28→22:57)
[2020-02-11] MEDS: DOCUSATE SODIUM 100 MG CAPSULE PO SCH ×2 (09:21→18:32)
[2020-02-11] MEDS: INSULIN LISPRO 100 UNIT/ML 3 ML VIAL SUBCUT SCH ×4 (09:21→23:16)
[2020-02-11] MEDS: NADOLOL 40 MG TABLET PO SCH ×2 (09:31→23:27)
[2020-02-11] MEDS: MAGNESIUM OXIDE 400 MG TABLET PO SCH ×2 (09:32→18:35)
[2020-02-11] MEDS: BACLOFEN 10 MG TABLET PO SCH ×2 (09:33→22:58)
[2020-02-11] MEDS: PREDNISONE 5 MG TABLET PO SCH ×2 (09:33→18:36)
[2020-02-11] MEDS: FAMOTIDINE 20 MG TABLET PO SCH ×2 (12:29→23:28)
[2020-02-11] MEDS: CALCITONIN,SALMON 6000 UNIT/30 SPRAY 3.7 ML NASL SCH (12:54)
--- NOTE | 2020-02-11 17:32 | PDOC PROGRESS REPORT ---
Subjective Progress Note for:: 02/11/20 Subjective:: 64 year old female with a history of diabetes, COPD, irregular heartbeat and chronic pain presents with a fall that she had likely 2 days ago. She lives in a local motel. She has had multiple falls previously. She is on high doses of chronic narcotic analgesia and this could be contributing. X-rays reveal a new fracture of the left ankle. She has a chronic right shoulder fracture displacement that is not new. She does have multiple bruises. Her BUN is high and she is likely dehydrated. She is also hyperglycemic and she does have a history of diabetes. She is having meaningful interaction although she does perseverate about her pain medications as well as wanting the Terrell catheter removed. Her BUN is elevated and she is likely dehydrated. She will be admitted by the hospitalist service. She has a history of arrhythmia so she will be monitored on telemetry. Dr. Yuan will be addressing the fractures. 02/10/[id number]-alwd-old female with history of chronic pain syndrome admitted after a fall found to have a closed trimalleolar fracture of the left ankle. Reduction and application of the external fixator was done on . pt is nonweightbearing. Waiting for placement. 02/11/[id number]-swda-old female admitted with a fall with a fracture of her left ankle status post open reduction and external fixator placed. Waiting for the placement. Reason For Visit: LEFT ANKLE FRACTURE,CHRONIC PAIN,ARRHYTHMIA, Physical Exam Vital Signs: Temp Pulse Resp BP Pulse Ox 98.4 F 65 18 134/49 H 99 02/11/20 15:45 02/11/20 15:45 02/11/20 15:45 02/11/20 15:45 02/11/20 15:45 Intake & Output 02/10/20 02/11/20 02/12/20 06:59 06:59 06:59 Intake Total 2348 2750 Balance 2348 2750 Weight 75.2 kg 76.9 kg General appearance: PRESENT: no acute distress, well-developed Head exam: PRESENT: atraumatic Eye exam: PRESENT: PERRLA Mouth exam: PRESENT: moist, tongue midline Teeth exam: PRESENT: poor dentation Neck exam: ABSENT: carotid bruit, JVD, lymphadenopathy, thyromegaly Respiratory exam: PRESENT: decreased breath sounds Cardiovascular exam: PRESENT: RRR. ABSENT: diastolic murmur, rubs, systolic murmur GI/Abdominal exam: PRESENT: normal bowel sounds, soft. ABSENT: distended, guarding, mass, organolmegaly, rebound, tenderness Rectal exam: PRESENT: deferred Extremities exam: PRESENT: full ROM, other - External fixator present.. ABSENT: calf tenderness, clubbing, pedal edema Neurological exam: PRESENT: alert, awake, oriented to person, oriented to place, oriented to time, oriented to situation, CN II-XII grossly intact. ABSENT: motor sensory deficit Psychiatric exam: PRESENT: appropriate affect, normal mood. ABSENT: homicidal ideation, suicidal ideation Results Laboratory Results: 02/10/20 07:05 02/10/20 04:29 01/31/20 02/02/20 02/03/20 23:45 04:58 04:35 Creatine Kinase 810 H 200 H 96 02/07/20 04:23 Creatine Kinase 34 Impressions: Chest X-Ray 02/01/20 00:00 IMPRESSION: 1. Blunting of left costophrenic angle may indicate a small left pleural effusion versus pleural parenchymal scarring. 2. Diffusely decreased bone mineral density. Fracture deformity of the right proximal humerus is incompletely evaluated with this technique, detailed on prior CT October 17, 2019. Stable left rib fracture deformities are again noted. Facial Bones CT 02/01/20 00:04 IMPRESSION: No acute bony injury is seen to the face. Head CT 02/01/20 00:04 IMPRESSION: No acute intracranial process is identified. Cervical Spine CT 02/01/20 00:06 IMPRESSION: No acute findings. Tibia/Fibula X-Ray 02/01/20 00:06 IMPRESSION: No acute bony injury to the proximal leg. Ankle has been imaged separately. Humerus X-Ray 02/01/20 03:44 IMPRESSION: Fracture deformity of the right proximal humerus again demonstrated. Alignment of the glenohumeral joint is difficult to assess on this exam. No obvious acute fracture visualized. Ankle X-Ray 02/06/20 00:00 IMPRESSION: IMAGE(S) OBTAINED DURING PROCEDURE. Fluoroscopy 02/06/20 00:00 IMPRESSION: IMAGE(S) OBTAINED DURING PROCEDURE. Lower Extremity CT 02/09/20 00:00 IMPRESSION: Severe ankle fractures as above. The posterior half of the tibial plafond is deficient, rotated and displaced. Assessment and Plan - Diagnosis (1) Metabolic encephalopathy Is this a current diagnosis for this admission?: Yes Plan: Resolved; patient is alert and oriented x4 Her encephalopathy could be related to her elevated BUN. She does have mildly elevated transaminases and bilirubin. In addition she is on large doses of c hronic narcotic therapy which could also be contributing. Continue IV fluids. Continue home pain medication regiment, though at appropriate dosing intervals. Treatment of potential cellulitis with IV antibiotics. Supportive care. 02/10/2020-patient admitted with acute metabolic encephalopathy may be secondary to chronic narcotic use. Acute metabolic encephalopathy is resolved comfortably in the bed communicating well. 02/11/2020 acute metabolic encephalopathy due to chronic narcotic use resolved. (2) Closed fracture of right proximal humerus Is this a current diagnosis for this admission?: Yes (3) Closed left ankle fracture Qualifiers: Encounter type: subsequent encounter Fracture healing: with routine healing Qualified Code(s): S82.892D - Other fracture of left lower leg, subsequent encounter for closed fracture with routine healing Is this a current diagnosis for this admission?: Yes Plan: Orthopedics is consulted. Primary management per Dr. Yuan. Per his note; will defer any surgical intervention for 2 to 3 days due to cellulitis-like appearance of left lower extremity. Cultures and antibiotics as above. 02/10/2020-patient admitted with closed fracture of the left ankle status post reduction with external fixator. Patient is nonweightbearing. Waiting for placement. 02/11/2020-admitted with left ankle fracture status post reduction and external fixation placement. Waiting for placement. (4) Chronically on opiate therapy Is this a current diagnosis for this admission?: Yes Plan: Through [facility] [place] controlled substance database reviewed; patient is prescribed m ethadone 10 mg mg twice daily #60 and oxycodone 30 mg tab #45. She is placed on a regiment of methadone 10 mg twice daily and oxycodone 15 mg every 8 hours Will allow for oxycodone 5 mg every 6 hours as needed breakthrough pain secondary to her acute left leg fracture (5) Dysuria Is this a current diagnosis for this admission?: Yes Plan: 02/10/2020-it was resolved. (6) Chronic obstructive pulmonary disease Qualifiers: Chronic bronchitis type: unspecified Is this a current diagnosis for this admission?: Yes Plan: The patient has a history of COPD. Stable and without exacerbation at this time. Supplemental oxygen as needed. As needed nebulizer treatments. Encourage pulmonary toilet with incentive spirometer and flutter valve. No indications for steroid therapy at this time. 02/10/2020-patient has history of COPD. Pulse ox is 95% room air. On examination chest bilateral entry was decreased no wheezing no crepitations present. - Plan Summary Summary: 02/03/2020 Admitted the patient therefore am familiar with her case. I also discussed the case with Dr. Yuan today. The best case scenario would be [facility] for [facility]hab and protecting the left ankle. The front of the cast has been cut open to create a window to look at the skin. There is erythema but the patient has been on antibiotics. She did have 1 blood culture bottle positive but this may likely be a contaminant. She still complains of pain in the ankle. The possibility of infection/cellulitis in the leg does not allow safe application of an external fixator. Ideally the patient should go to rehab for several weeks to regain strength and improve her balance and then orthopedic surgery can provide more definitive treatment for the unstable ankle fracture. Contact was made with her chronic pain management providers. She is currently on a regimen of their suggestion. She also needs to start participating in physical therapy since she does fall a lot at home. Some of this might be due to her medications. 02/04/2020 The patient was actually complementary of the physical therapist today. Now t hat she has someone to watch her dog she is amenable to short-term rehab prior to definitive surgery for her ankle. She has had multiple falls in the past. This certainly could be related to pain medication, clutter in the apartment with high risk areas for falls and poor gait. The patient will need rehab to strengthen and improve her balance. She currently is nonweightbearing for the left leg. This stronger she can get before surgery the better. She in fact should be able to go to short-term rehab as soon as a bed is available with surgery scheduled per Dr. Yuan. Sfnjhllw-Avax-Hsrop have been stable. Continue current regimen. Hypertension-blood pressures are still quite variable. This may likely be due to variations in pain. Not enough consistency to alter medication regimen at t his point. 02/05/2020 Ankle fracture-the fracture dislocated again today. The patient had eaten and so she is not a candidate for the operating room today. Dr. Yuan discussed the case with Dr. madrigal. Dr. Garcia will be covering. Possible application of ex-fix tomorrow or Sunday. I have ordered laboratory studies including a pro time in anticipation of surgery within the next 24 to 48 hours. We will continue ice to the ankle. Cellulitis-we will continue the cefazolin for left leg cellulitis. It is scheduled to end on the . This will cover the surgical window. The patient will need placement at [facility] once her ex-fix is in place. Diabetes [id number]-Ybib-[id number] are mostly below 150. Continue current regimen. Hypertension-blood pressures under reasonable control. Will continue current regimen and hold off on any adjustments for the time being. The patient is on chronic prednisone therapy for inflammatory bowel. It is likely she has osteoporosis. I will consider Miacalcin to possibly help with bone healing. Will discuss with orthopedic surgery. Elevated transaminases and bilirubin. Recheck CMP tomorrow 02/06/2020 Left ankle fracture-scheduled for external fixation application today. Dr. Garcia will be performing the surgery. Will be able to go to [facility] facility after the surgery. Will discuss with orthopedics how long they would like inpatient monitoring prior to transfer. Laboratory studies performed this morning. No contraindications to surgery. Ankle pain is reasonably controlled Hypomagnesemia-serum magnesium was low at 1.5. Will start oral magnesium. No need for intravenous supplement at this time. Dysuria-the patient does not have an indwelling catheter. She has been on cefazolin. I did asked the nurse to obtain a urinalysis with reflex to culture. Pyridium will not be available as needed. No change in antibiotics at this time. Changes will be based on urine culture results. Rhabdomyolysis, elevated bilirubin, elevated transaminases-all are now resolved based on laboratory studies. Hyperglycemia due to diabetes-on current regimen she was actually slightly low today. She is n.p.o. for surgery. Most of her Accu-Cheks have been below 150. Last night she was 177 possibly contributing to slightly low glucose this morning. Repeat Accu-Chek was 82. Continue Accu-Cheks with sliding scale. Hypertension-blood pressures are still variable. No changes preoperatively. If blood pressures are still elevated later today and tomorrow we will adjust medications. 02/07/[address] Physical therapy is working with the patient. She actually has the external fixator placed yesterday by Dr. Camacho. She continues to complain of pain. Cdgg-[id number]-[id number] on oral magnesium supplementation. Recheck magnesium tomorrow. Dysuria-urinalysis did not need to reflex to culture. Continue Pyridium as needed. Diabetes-adjustments in medication have now resulted in reasonable glucose control. Continue current regimen. Hypertension-no changes in medication as her blood pressure still very. Rhabdomyolysis, elevated bilirubin and elevated transaminase levels-resolved Anticipate the ability to transfer to [facility] on Sunday02/08/2020 Once again she complains about significant pain however she is swinging her leg around the bed. Upon entry into the room she was talking to a cousin on the phone without any evidence of distress. She does complain about the pin sites. I will ask orthopedic surgery to implement pin site cleaning regimen. Patient continues with good glucose control. No change to the treatment plan. Consistent blood pressures. No change in treatment plan. Anticipate transfer to [facility] in 24 to 48 hours 02/09/2020 The patient was seen by Dr. Yuan. He ordered a CT scan to see what options there might be for definitive treatment. There is a possibility she may need to be in the ex fix until she gets bone healing with no other option to repair the ankle. He did unwrap the dressing and provide care for the skin sites from the pins of the external fixator. The patient complains of pain but I feel it is reasonably controlled at this time. No other pain medications. Diabetes mellitus-continue to monitor Accu-Cheks. No further episodes of hypoglycemia. Ankle fracture-surgical intervention as noted above. The patient needs to [facility] to [facility] to maximize her recovery. I was notified by discharge planning that there is an insurance issue. Discharge planning is working to find a facility to accept the patient. - Time Anticipated Discharge Disposition: Jail Facility Anticipated Discharge Timeframe: within 48 hours
[2020-02-12] MEDS: OXYCODONE-ACETAMINOPHEN 5-325 MG TABLET PO PRN ×2 (00:56→05:26)
[2020-02-12] MEDS: GABAPENTIN 300 MG CAPSULE PO SCH ×2 (05:25→14:37)
[2020-02-12] MEDS: METHADONE HCL 10 MG TABLET PO SCH ×2 (05:25→14:37)
[2020-02-12] MEDS: HEPARIN SOD (PORCINE) 5,000 UNIT/ML 1 ML VIAL SUBCUT SCH ×2 (05:27→14:37)
[2020-02-12] MEDS: INSULIN LISPRO 100 UNIT/ML 3 ML VIAL SUBCUT SCH ×2 (07:56→11:35)
[2020-02-12] MEDS: ONDANSETRON 4 MG TAB.RAPDIS SL PRN (08:03)
[2020-02-12] MEDS ORDERED: DIPHENHYDRAMINE HCL 25 MG CAPSULE PO PRN (08:57)
[2020-02-12] MEDS ORDERED: BISMUTH SUBSALICYLATE 262 MG TAB.CHEW PO PRN (08:58)
--- NOTE | 2020-02-12 09:03 | PDOC PROGRESS REPORT ---
Subjective Progress Note for:: 02/12/20 Subjective:: 64 year old female with a history of diabetes, COPD, irregular heartbeat and chronic pain presents with a fall that she had likely 2 days ago. She lives in a local motel. She has had multiple falls previously. She is on high doses of chronic narcotic analgesia and this could be contributing. X-rays reveal a new fracture of the left ankle. She has a chronic right shoulder fracture displacement that is not new. She does have multiple bruises. Her BUN is high and she is likely dehydrated. She is also hyperglycemic and she does have a history of diabetes. She is having meaningful interaction although she does perseverate about her pain medications as well as wanting the Terrell catheter removed. Her BUN is elevated and she is likely dehydrated. She will be admitted by the hospitalist service. She has a history of arrhythmia so she will be monitored on telemetry. Dr. Yuan will be addressing the fractures. 02/10/[id number]-old female with history of chronic pain syndrome admitted after a fall found to have a closed trimalleolar fracture of the left ankle. Reduction and application of the external fixator was done on . pt is nonweightbearing. Waiting for placement. 02/11/[id number]-old female admitted with a fall with a fracture of her left ankle status post open reduction and external fixator placed. Waiting for the placement. 02/12/2020-patient admitted with left ankle fracture status post open reduction and external fixator placement. Patient is appealing for Medicare at this time for stay. She is complaining of nausea, itching, requesting back on pain medications. She also wanted me to speak to Dr. Yuan about further follow-up. Reason For Visit: LEFT ANKLE FRACTURE,CHRONIC PAIN,ARRHYTHMIA, Physical Exam Vital Signs: Temp Pulse Resp BP Pulse Ox 97.8 F 59 L 16 113/37 L 100 02/12/20 08:15 02/12/20 08:15 02/12/20 08:15 02/12/20 08:15 02/12/20 08:15 Intake & Output 02/11/20 02/12/20 02/13/20 06:59 06:59 06:59 Intake Total 2750 500 Balance 2750 500 Weight 76.9 kg 75.3 kg General appearance: PRESENT: no acute distress, well-developed Head exam: PRESENT: atraumatic Eye exam: PRESENT: PERRLA Mouth exam: PRESENT: moist, tongue midline Teeth exam: PRESENT: poor dentation Neck exam: ABSENT: carotid bruit, JVD, lymphadenopathy, thyromegaly Respiratory exam: PRESENT: decreased breath sounds Cardiovascular exam: PRESENT: RRR. ABSENT: diastolic murmur, rubs, systolic murmur GI/Abdominal exam: PRESENT: normal bowel sounds, soft. ABSENT: distended, guarding, mass, organolmegaly, rebound, tenderness Rectal exam: PRESENT: deferred Extremities exam: PRESENT: full ROM, other - External fixator present in the left lower leg.. ABSENT: calf tenderness, clubbing, pedal edema Neurological exam: PRESENT: alert, awake, oriented to person, oriented to place, oriented to time, oriented to situation, CN II-XII grossly intact. ABSENT: motor sensory deficit Results Laboratory Results: 02/10/20 07:05 02/10/20 04:29 01/31/20 02/02/20 02/03/20 23:45 04:58 04:35 Creatine Kinase 810 H 200 H 96 02/07/20 04:23 Creatine Kinase 34 Impressions: Chest X-Ray 02/01/20 00:00 IMPRESSION: 1. Blunting of left costophrenic angle may indicate a small left pleural effusion versus pleural parenchymal scarring. 2. Diffusely decreased bone mineral density. Fracture deformity of the right proximal humerus is incompletely evaluated with this technique, detailed on prior CT October 17, 2019. Stable left rib fracture deformities are again noted. Facial Bones CT 02/01/20 00:04 IMPRESSION: No acute bony injury is seen to the face. Head CT 02/01/20 00:04 IMPRESSION: No acute intracranial process is identified. Cervical Spine CT 02/01/20 00:06 IMPRESSION: No acute findings. Tibia/Fibula X-Ray 02/01/20 00:06 IMPRESSION: No acute bony injury to the proximal leg. Ankle has been imaged separately. Humerus X-Ray 02/01/20 03:44 IMPRESSION: Fracture deformity of the right proximal humerus again demonstrated. Alignment of the glenohumeral joint is difficult to assess on this exam. No obvious acute fracture visualized. Ankle X-Ray 02/06/20 00:00 IMPRESSION: IMAGE(S) OBTAINED DURING PROCEDURE. Fluoroscopy 02/06/20 00:00 IMPRESSION: IMAGE(S) OBTAINED DURING PROCEDURE. Lower Extremity CT 02/09/20 00:00 IMPRESSION: Severe ankle fractures as above. The posterior half of the tibial plafond is deficient, rotated and displaced. Assessment and Plan - Diagnosis (1) Metabolic encephalopathy Is this a current diagnosis for this admission?: Yes Plan: Resolved; patient is alert and oriented x4 Her encephalopathy could be related to her elevated BUN. She does have mildly elevated transaminases and bilirubin. In addition she is on large doses of chronic narcotic therapy which could also be contributing. Continue IV fluids. Continue home pain medication regiment, though at appropriate dosing intervals. Treatment of potential cellulitis with IV antibiotics. Supportive care. 02/10/2020-patient admitted with acute metabolic encephalopathy may be secondary to chronic narcotic use. Acute metabolic encephalopathy is resolved comfortably in the bed communicating well. 02/11/2020 acute metabolic encephalopathy due to chronic narcotic use resolved. 02/12/2020-patient is comfortably in the bed communicating well alert and oriented. (2) Closed fracture of right proximal humerus Is this a current diagnosis for this admission?: Yes (3) Closed left ankle fracture Qualifiers: Encounter type: subsequent encounter Fracture healing: with routine healing Qualified Code(s): S82.892D - Other fracture of left lower leg, subsequent encounter for closed fracture with routine healing Is this a current diagnosis for this admission?: Yes Plan: Orthopedics is consulted. Primary management per Dr. Yuan. Per his note; will defer any surgical intervention for 2 to 3 days due to cellulitis-like appearance of left lower extremity. Cultures and antibiotics as above. 02/10/2020-patient admitted with closed fracture of the left ankle status post reduction with external fixator. Patient is nonweightbearing. Waiting for placement. 02/11/2020-admitted with left ankle fracture status post reduction and external fixation placement. Waiting for placement. 02/12/2020-patient admitted with left ankle fracture status post reduction and external fixation to replacement. (4) Chronically on opiate therapy Is this a current diagnosis for this admission?: Yes Plan: Through [place] pain management [facility] controlled substance database reviewed; patient is prescribed methadone 10 mg mg twice daily #60 and oxycodone 30 mg tab #45. She is placed on a regiment of methadone 10 mg twice daily and oxycodone 15 mg every 8 hours Will allow for oxycodone 5 mg every 6 hours as needed breakthrough pain secondary to her acute left leg fracture (5) Dysuria Is this a current diagnosis for this admission?: Yes Plan: 02/10/2020-it was resolved. (6) Chronic obstructive pulmonary disease Qualifiers: Chronic bronchitis type: unspecified Is this a current diagnosis for this admission?: Yes Plan: The patient has a history of COPD. Stable and without exacerbation at this time. Supplemental oxygen as needed. As needed nebulizer treatments. Encourage pulmonary toilet with incentive spirometer and flutter valve. No indications for steroid therapy at this time. 02/10/2020-patient has history of COPD. Pulse ox is 95% room air. On examination chest bilateral entry was decreased no wheezing no crepitations present. - Plan Summary Summary: 02/03/2020 Admitted the patient therefore am familiar with her case. I also discussed the case with Dr. Yuan today. The best case scenario would be prison for rehab and protecting the left ankle. The front of the cast has been cut open to create a window to look at the skin. There is erythema but the patient has been on antibiotics. She did have 1 blood culture bottle positive but this may likely be a contaminant. She still complains of pain in the ankle. The possibility of infection/cellulitis in the leg does not allow safe application of an external fixator. Ideally the patient should go to rehab for several weeks to regain strength and improve her balance and then orthopedic surgery can provide more definitive treatment for the unstable ankle fracture. Contact was made with her chronic pain management providers. She is currently on a regimen of their suggestion. She also needs to start participating in physical therapy since she does fall a lot at home. Some of this might be due to her medications. 02/04/2020 The patient was actually complementary of the physical therapist today. Now that she has someone to watch her dog she is amenable to short-term rehab prior to definitive surgery for her ankle. She has had multiple falls in the past. This certainly could be related to pain medication, clutter in the apartment with high risk areas for falls and poor gait. The patient will need rehab to strengthen and improve her balance. She currently is nonweightbearing for the left leg. This stronger she can get before surgery the better. She in fact should be able to go to short-term rehab as soon as a bed is available with surgery scheduled per Dr. Yuan. [id number]-Gwdju have been stable. Continue current regimen. Hypertension-blood pressures are still quite variable. This may likely be due to variations in pain. Not enough consistency to alter medication regimen at this point. 02/05/2020 Ankle fracture-the fracture dislocated again today. The patient had eaten and so she is not a candidate for the operating room today. Dr. Yuan discussed the case with Dr. madrigal. Dr. Garcia will be covering. Possible application of ex-fix tomorrow or Sunday. I have ordered laboratory studies including a pro time in anticipation of surgery within the next 24 to 48 hours. We will continue ice to the ankle. Cellulitis-we will continue the cefazolin for left leg cellulitis. It is scheduled to end on the . This will cover the surgical window. The patient will need placement at skilled once her ex-fix is in place. Diabetes otuebymh-Rzlj-Cmidd are mostly below 150. Continue current regimen. Hypertension-blood pressures under reasonable control. Will continue current regimen and hold off on any adjustments for the time being. The patient is on chronic prednisone therapy for inflammatory bowel. It is likely she has osteoporosis. I will consider Miacalcin to possibly help with bone healing. Will discuss with orthopedic surgery. Elevated transaminases and bilirubin. Recheck CMP tomorrow 02/06/2020 Left ankle fracture-scheduled for external fixation application today. Dr. Garcia will be performing the surgery. Will be able to go to prison facility after the surgery. Will discuss with orthopedics how long they would like inpatient monitoring prior to transfer. Laboratory studies performed this morning. No contraindications to surgery. Ankle pain is reasonably controlled Hypomagnesemia-serum magnesium was low at 1.5. Will start oral magnesium. No need for intravenous supplement at this time. Dysuria-the patient does not have an indwelling catheter. She has been on cefazolin. I did asked the nurse to obtain a urinalysis with reflex to culture. Pyridium will not be available as needed. No change in antibiotics at this time. Changes will be based on urine culture results. Rhabdomyolysis, elevated bilirubin, elevated transaminases-all are now resolved based on laboratory studies. Hyperglycemia due to diabetes-on current regimen she was actually slightly low today. She is n.p.o. for surgery. Most of her Accu-Cheks have been below 150. Last night she was 177 possibly contributing to slightly low glucose this morning. Repeat Accu-Chek was 82. Continue Accu-Cheks with sliding scale. Hypertension-blood pressures are still variable. No changes preoperatively. If blood pressures are still elevated later today and tomorrow we will adjust medications. 02/07/[address] Physical therapy is working with the patient. She actually has the external fixator placed yesterday by Dr. Camacho. She continues to complain of pain. Ylrd-[id number] on oral magnesium supplementation. Recheck magnesium tomorrow. Dysuria-urinalysis did not need to reflex to culture. Continue Pyridium as needed. Diabetes-adjustments in medication have now resulted in reasonable glucose control. Continue current regimen. Hypertension-no changes in medication as her blood pressure still very. Rhabdomyolysis, elevated bilirubin and elevated transaminase levels-resolved Anticipate the ability to transfer to prison on Sunday02/08/2020 Once again she complains about significant pain however she is swinging her leg around the bed. Upon entry into the room she was talking to a cousin on the phone without any evidence of distress. She does complain about the pin sites. I will ask orthopedic surgery to implement pin site cleaning regimen. Patient continues with good glucose control. No change to the treatment plan. Consistent blood pressures. No change in treatment plan. Anticipate transfer to prison in 24 to 48 hours 02/09/2020 The patient was seen by Dr. Yuan. He ordered a CT scan to see what options there might be for definitive treatment. There is a possibility she may need to be in the ex fix until she gets bone healing with no other option to repair the ankle. He did unwrap the dressing and provide care for the skin sites from the pins of the external fixator. The patient complains of pain but I feel it is reasonably controlled at this time. No other pain medications. Diabetes mellitus-continue to monitor Accu-Cheks. No further episodes of hyp oglycemia. Ankle fracture-surgical intervention as noted above. The patient needs to transfer to prison to maximize her recovery. I was notified by discharge planning that there is an insurance issue. Discharge planning is working to find a facility to accept the patient. - Time Anticipated Discharge Disposition: [facility] Facility Anticipated Discharge Timeframe: within 48 hours
[2020-02-12] MEDS: NADOLOL 40 MG TABLET PO SCH (10:57)
[2020-02-12] MEDS: MAGNESIUM OXIDE 400 MG TABLET PO SCH (10:57)
[2020-02-12] MEDS: BACLOFEN 10 MG TABLET PO SCH (10:57)
[2020-02-12] MEDS: DOCUSATE SODIUM 100 MG CAPSULE PO SCH (10:58)
[2020-02-12] MEDS: PREDNISONE 5 MG TABLET PO SCH (10:58)
[2020-02-12] MEDS: CALCITONIN,SALMON 6000 UNIT/30 SPRAY 3.7 ML NASL SCH (11:01)
[2020-02-12] MEDS ORDERED: OXYCODONE-ACETAMINOPHEN 5-325 MG TABLET PO PRN (12:05)
[2020-02-12 12:20] VITALS: BP 116/51
--- NOTE | 2020-02-12 13:38 | PDOC TRANSFER SUMMARY ---
Impression - Admit/DC Date/PCP Admission Date/Primary Care Provider: 02/01/20 04:53 FRANCOIS DAVILA PA-C Discharge Date: 02/12/20 - Discharge Diagnosis (1) Metabolic encephalopathy Is this a current diagnosis for this admission?: Yes (2) Closed fracture of right proximal humerus Is this a current diagnosis for this admission?: Yes (3) Closed left ankle fracture Is this a current diagnosis for this admission?: Yes (4) Chronically on opiate therapy Is this a current diagnosis for this admission?: Yes (5) Dysuria Is this a current diagnosis for this admission?: Yes (6) Chronic obstructive pulmonary disease Is this a current diagnosis for this admission?: Yes - Assessment Summary: 02/03/2020 Admitted the patient therefore am familiar with her case. I also discussed the case with Dr. Yuan today. The best case scenario would be correction for rehab and protecting the left ankle. The front of the cast has been cut open to create a window to look at the skin. There is erythema but the patient has been on antibiotics. She did have 1 blood culture bottle positive but this may likely be a contaminant. She still complains of pain in the ankle. The possibility of infection/cellulitis in the leg does not allow safe application of an external fixator. Ideally the patient should go to rehab for several weeks to regain strength and improve her balance and then orthopedic surgery can provide more definitive treatment for the unstable ankle fracture. Contact was made with her chronic pain management providers. She is currently on a regimen of their suggestion. She also needs to start participating in physical therapy since she does fall a lot at home. Some of this might be due to her medications. 02/04/2020 The patient was actually complementary of the physical therapist today. Now that she has someone to watch her dog she is amenable to short-term rehab prior to definitive surgery for her ankle. She has had multiple falls in the past. This certainly could be related to pain medication, clutter in the apartment with high risk areas for falls and poor gait. The patient will need rehab to strengthen and improve her balance. She currently is nonweightbearing for the left leg. This stronger she can get before surgery the better. She in fact should be able to go to short-term rehab as soon as a bed is available with surgery scheduled per Dr. Yuan. Zjekxtal-Uppx-Giyqf have been stable. Continue current regimen. Hypertension-blood pressures are still quite variable. This may likely be due to variations in pain. Not enough consistency to alter medication regimen at this point. 02/05/2020 Ankle fracture-the fracture dislocated again today. The patient had eaten and so she is not a candidate for the operating room today. Dr. Yuan discussed the case with Dr. madrigal. Dr. Garcia will be covering. Possible application of ex-fix tomorrow or Sunday. I have ordered laboratory studies including a pro time in anticipation of surgery within the next 24 to 48 hours. We will continue ice to the ankle. Cellulitis-we will continue the cefazolin for left leg cellulitis. It is scheduled to end on the . This will cover the surgical window. The patient will need placement at [facility] once her ex-fix is in place. Diabetes ahkezdzy-Qexa-Umxkh are mostly below 150. Continue current regimen. Hypertension-blood pressures under reasonable control. Will continue current regimen and hold off on any adjustments for the time being. The patient is on chronic prednisone therapy for inflammatory bowel. It is kati piper she has osteoporosis. I will consider Miacalcin to possibly help with bone healing. Will discuss with orthopedic surgery. Elevated transaminases and bilirubin. Recheck CMP tomorrow 02/06/2020 Left ankle fracture-scheduled for external fixation application today. Dr. Garcia will be performing the surgery. Will be able to go to correction facility after the surgery. Will discuss with orthopedics how long they would like inpatient monitoring prior to transfer. Laboratory studies performed this morning. No contraindications to surgery. Ankle pain is reasonably controlled Hypomagnesemia-serum magnesium was low at 1.5. Will start oral magnesium. No need for intravenous supplement at this time. Dysuria-the patient does not have an indwelling catheter. She has been on cefazolin. I did asked the nurse to obtain a urinalysis with reflex to culture. Pyridium will not be available as needed. No change in antibiotics at this time. Changes will be based on urine culture results. Rhabdomyolysis, elevated bilirubin, elevated transaminases-all are now resolved based on laboratory studies. Hyperglycemia due to diabetes-on current regimen she was actually slightly low today. She is n.p.o. for surgery. Most of her Accu-Cheks (1) Metabolic encephalopathy Is this a current diagnosis for this admission?: Yes Plan: Resolved; patient is alert and oriented x4 Her encephalopathy could be related to her elevated BUN. She does have mildly elevated transaminases and bilirubin. In addition she is on large doses of chronic narcotic therapy which could also be contributing. Continue IV fluids. Continue home pain medication regiment, though at appropriate dosing intervals. Treatment of potential cellulitis with IV antibiotics. Supportive care. 02/10/2020-patient admitted with acute metabolic encephalopathy may be secondary to chronic narcotic use. Acute metabolic encephalopathy is resolved comfortably in the bed communicating well. 02/11/2020 acute metabolic encephalopathy due to chronic narcotic use resolved. 02/12/2020-patient is comfortably in the bed communicating well alert and oriented. (2) Closed fracture of right proximal humerus Is this a current diagnosis for this admission?: Yes (3) Closed left ankle fracture Qualifiers: Encounter type: subsequent encounter Fracture healing: with routine healing Qualified Code(s): S82.892D - Other fracture of left lower leg, subsequent encounter for closed fracture with routine healing Is this a current diagnosis for this admission?: Yes Plan: Orthopedics is consulted. Primary management per Dr. Yuan. Per his note; will defer any surgical intervention for 2 to 3 days due to cellulitis-like appearance of left lower extremity. Cultures and antibiotics as above. 02/10/2020-patient admitted with closed fracture of the left ankle status post reduction with external fixator. Patient is nonweightbearing. Waiting for placement. 02/11/2020-admitted with left ankle fracture status post reduction and external fixation placement. Waiting for placement. 02/12/2020-patient admitted with left ankle fracture status post reduction and external fixation to replacement. 02/12/2020-patient is going to the group home today. I spoke to Dr. Yuan he wants to arrange for orthopedic surgery on Sunday. (4) Chronically on opiate therapy Is this a current diagnosis for this admission?: Yes Plan: Through [facility] [place] controlled substance database reviewed; patient is prescribed methadone 10 mg mg twice daily #60 and oxycodone 30 mg tab #45. She is placed on a regiment of methadone 10 mg twice daily and oxycodone 15 mg every 8 hours Will allow for oxycodone 5 mg every 6 hours as needed breakthrough pain secondary to her acute left leg fracture (5) Dysuria Is this a current diagnosis for this admission?: Yes Plan: 02/10/2020-it was resolved. (6) Chronic obstructive pulmonary disease Qualifiers: Chronic bronchitis type: unspecified Is this a current diagnosis for this admission?: Yes Plan: The patient has a history of COPD. Stable and without exacerbation at this time. Supplemental oxygen as needed. As needed nebulizer treatments. Encourage pulmonary toilet with incentive spirometer and flutter valve. No indications for steroid therapy at this time. 02/10/2020-patient has history of COPD. Pulse ox is 95% room air. On examination chest bilateral entry was decreased no wheezing no crepitations present. have been below 150. Last night she was 177 possibly contributing to slightly low glucose this morning. Repeat Accu-Chek was 82. Continue Accu-Cheks with sliding scale. Hypertension-blood pressures are still variable. No changes preoperatively. If blood pressures are still elevated later today and tomorrow we will adjust medications. 02/07/[address] Physical therapy is working with the patient. She actually has the external fixator placed yesterday by Dr. Camacho. She continues to complain of pain. Ggkq-psqluymr-avzmynkcp on oral magnesium supplementation. Recheck magnesium tomorrow. Dysuria-urinalysis did not need to reflex to culture. Continue Pyridium as needed. Diabetes-adjustments in medication have now resulted in reasonable glucose control. Continue current regimen. Hypertension-no changes in medication as her blood pressure still very. Rhabdomyolysis, elevated bilirubin and elevated transaminase levels-resolved Anticipate the ability to transfer to correction on Sunday02/08/2020 Once again she complains about significant pain however she is swinging her leg around the bed. Upon entry into the room she was talking to a cousin on the phone without any evidence of distress. She does complain about the pin sites. I will ask orthopedic surgery to implement pin site cleaning regimen. Patient continues with good glucose control. No change to the treatment plan. Consistent blood pressures. No change in treatment plan. Anticipate transfer to correction in 24 to 48 hours 02/09/2020 The patient was seen by Dr. Yuan. He ordered a CT scan to see what options there might be for definitive treatment. There is a possibility she may need to be in the ex fix until she gets bone healing with no other option to repair the ankle. He did unwrap the dressing and provide care for the skin sites from the pins of the external fixator. The patient complains of pain but I feel it is reasonably controlled at this time. No other pain medications. Diabetes mellitus-continue to monitor Accu-Cheks. No further episodes of hypoglycemia. Ankle fracture-surgical intervention as noted above. The patient needs to transfer to correction to maximize her recovery. I was notified by discharge planning that there is an insurance issue. Discharge planning is working to find a facility to accept the patient. - Additional Information Resuscitation Status: Full Code Discharge Diet: Diabetic Discharge Activity: Activity As Tolerated Referrals: [facility] [Outside] MODESTO CAMACHO MD [ACTIVE STAFF] - 02/19/20 11:30 am Prescriptions: Oxycodone HCl/Acetaminophen [Percocet 5-325 mg Tablet] 1 tab PO Q4HP PRN 3 Days #10 tablet PRN Reason: Home Medications: Baclofen [Baclofen 10 mg Tablet] 20 mg PO Q12 01/04/19 Nadolol [Corgard 40 mg Tablet] 40 mg PO Q12 01/04/19 Prednisone [Deltasone 5 mg Tablet] 5 mg PO BID 01/04/19 Gabapentin 600 mg PO TID 10/18/19 Oxycodone HCl/Acetaminophen [Percocet 5-325 mg Tablet] 1 tab PO Q4HP PRN 3 Days #10 tablet 02/12/20 History of Present Illiness History of Present Illness: LILLY FERRER is a 64 year old female 64 year old female with a history of diabetes, COPD, irregular heartbeat and chronic pain presents with a fall that she had likely 2 days ago. She lives in a local community health. She has had multiple falls previously. She is on high doses of chronic narcotic analgesia and this could be contributing. X-rays reveal a new fracture of the left ankle. She has a chronic right shoulder fracture displacement that is not new. She does have multiple bruises. Her BUN is high and she is likely dehydrated. She is also hyperglycemic and she does have a history of diabetes. She is having meaningful interaction although she does perseverate about her pain medications as well as wanting the Terrell catheter removed. Her BUN is elevated and she is likely dehydrated. She will be admitted by the hospitalist service. She has a history of arrhythmia so she will be monitored on telemetry. Dr. Yuan will be addressing the fractures. Hospital Course Hospital Course: 64 year old female with a history of diabetes, COPD, irregular heartbeat and chronic pain presents with a fall that she had likely 2 days ago. She lives in [place] local motel. She has had multiple falls previously. She is on high doses of chronic narcotic analgesia and this could be contributing. X-rays reveal a new fracture of the left ankle. She has a chronic right shoulder fracture displacement that is not new. She does have multiple bruises. Her BUN is high and she is likely dehydrated. She is also hyperglycemic and she does have a history of diabetes. She is having meaningful interaction although she does perseverate about her pain medications as well as wanting the Terrell catheter removed. Her BUN is elevated and she is likely dehydrated. She will be admitted by the hospitalist service. She has a history of arrhythmia so she will be monitored on telemetry. Dr. Yuan will be addressing the fractures. 02/10/[id number]-qmxa-old female with history of chronic pain syndrome admitted after a fall found to have a closed trimalleolar fracture of the left ankle. Reduction and application of the external fixator was done on . pt is nonweightbearing. Waiting for placement. 02/11/20201875-92-rohr-old female admitted with a fall with a fracture of her left ankle status post open reduction and external fixator placed. Waiting for the placement. 02/12/2020-patient admitted with left ankle fracture status post open reduction and external fixator placement. Patient is appealing for Medicare at this time for stay. She is complaining of nausea, itching, requesting back on pain medications. She also wanted me to speak to Dr. Yuan about further follow-up. Physical Exam Vital Signs: Temp Pulse Resp BP Pulse Ox 97.9 F 62 18 116/51 L 90 L 02/12/20 11:18 02/12/20 11:18 02/12/20 11:18 02/12/20 11:18 02/12/20 11:18 Intake & Output 02/11/20 02/12/20 02/13/20 06:59 06:59 06:59 Intake Total 2750 500 Balance 2750 500 Weight 76.9 kg 75.3 kg General appearance: PRESENT: no acute distress, cooperative, well-developed Head exam: PRESENT: atraumatic Eye exam: PRESENT: PERRLA Ear exam: PRESENT: normal external ear exam Mouth exam: PRESENT: neck supple Teeth exam: PRESENT: poor dentation Neck exam: ABSENT: carotid bruit, JVD, lymphadenopathy, thyromegaly Respiratory exam: PRESENT: decreased breath sounds Cardiovascular exam: PRESENT: RRR. ABSENT: diastolic murmur, rubs, systolic murmur GI/Abdominal exam: PRESENT: normal bowel sounds, soft. ABSENT: distended, guarding, mass, organolmegaly, rebound, tenderness Rectal exam: PRESENT: deferred Extremities exam: PRESENT: other - Left lower leg with external fixator present. Results Laboratory Results: WBC 6.2 10^3/uL (4.0-10.5) 02/10/20 07:05 RBC 3.04 10^6/uL (3.72-5.28) L 02/10/20 07:05 Hgb 8.6 g/dL (12.0-15.5) L 02/10/20 07:05 Hct 25.2 % (36.0-47.0) L 02/10/20 07:05 MCV 83 fl (80-97) 02/10/20 07:05 MCH 28.2 pg (27.0-33.4) 02/10/20 07:05 MCHC 34.1 g/dL (32.0-36.0) 02/10/20 07:05 RDW 18.2 % (11.5-14.0) H 02/10/20 07:05 Plt Count 265 10^3/uL (150-450) 02/10/20 07:05 Lymph % (Auto) 24.5 % (13-45) 02/10/20 07:05 Craig % (Auto) 6.4 % (3-13) 02/10/20 07:05 Eos % (Auto) 1.7 % (0-6) 02/10/20 07:05 Baso % (Auto) 0.9 % (0-2) 02/10/20 07:05 Reticulocyte # 0.081 10^6/uL (0.028-0.122) 02/02/20 04:58 Absolute Neuts (auto) 4.2 10^3/uL (1.7-8.2) 02/10/20 07:05 Absolute Lymphs (auto) 1.5 10^3/uL (0.5-4.7) 02/10/20 07:05 Absolute Monos (auto) 0.4 10^3/uL (0.1-1.4) 02/10/20 07:05 Absolute Eos (auto) 0.1 10^3/uL (0.0-0.6) 02/10/20 07:05 Absolute Basos (auto) 0.1 10^3/uL (0.0-0.2) 02/10/20 07:05 Seg Neutrophils % 66.5 % (42-78) 02/10/20 07:05 Platelet Estimate Cancelled 02/10/20 04:29 Retic Count (auto) 2.53 % (0.66-2.85) 02/02/20 04:58 PT 14.1 SEC (11.4-15.4) 02/06/20 04:33 INR 1.07 02/06/20 04:33 Sodium 140.9 mmol/L (137-145) 02/10/20 04:29 Potassium 4.9 mmol/L (3.6-5.0) 02/10/20 04:29 Chloride 106 mmol/L (98-107) 02/10/20 04:29 Carbon Dioxide 28 mmol/L (22-30) 02/10/20 04:29 Anion Gap 7 (5-19) 02/10/20 04:29 BUN 19 mg/dL (7-20) 02/10/20 04:29 Creatinine 0.77 mg/dL (0.52-1.25) 02/10/20 04:29 Est GFR ( Amer) > 60 (>60) 02/10/20 04:29 Est GFR (MDRD) Non-Af > 60 (>60) 02/10/20 04:29 Glucose 107 mg/dL (75-110) 02/10/20 04:29 POC Glucose 112 mg/dL (70-110) H 02/12/20 11:20 Hemoglobin A1c % 5.7 % (4.7-6.0) 02/02/20 04:58 Lactic Acid 1.7 mmol/L (0.7-2.1) 01/31/20 23:45 Calcium 8.9 mg/dL (8.4-10.2) 02/10/20 04:29 Magnesium 1.9 mg/dL (1.6-2.3) 02/10/20 04:29 Iron 11.9 ug/dL (37-170) L 02/02/20 04:58 TIBC 287 ug/dL (250-450) 02/02/20 04:58 % Saturation 4 % 02/02/20 04:58 Ferritin 119.00 ng/mL (11.1-264.0) 02/02/20 04:58 Total Bilirubin 0.6 mg/dL (0.2-1.3) 02/10/20 04:29 Direct Bilirubin 0.4 mg/dL (0.0-0.4) 02/10/20 04:29 Neonat Total Bilirubin Not Reportable 02/10/20 04:29 Neonat Direct Bilirubin Not Reportable 02/10/20 04:29 Neonat Indirect Bili Not Reportable 02/10/20 04:29 AST 25 U/L (14-36) 02/10/20 04:29 ALT 9 U/L (<35) 02/10/20 04:29 Alkaline Phosphatase 106 U/L (38-126) 02/10/20 04:29 Creatine Kinase 34 U/L (30-135) 02/07/20 04:23 Total Protein 6.7 g/dL (6.3-8.2) 02/10/20 04:29 Albumin 3.4 g/dL (3.5-5.0) L 02/10/20 04:29 Vitamin B12 993.0 pg/mL (239-931) H 02/02/20 04:58 Folate 12.80 ng/mL (>2.76) 02/02/20 04:58 Urine Color YELLOW 02/06/20 22:21 Urine Appearance CLEAR 02/06/20 22:21 Urine pH 7.0 (5.0-9.0) 02/06/20 22:21 Ur Specific Duff 1.013 02/06/20 22:21 Urine Protein NEGATIVE mg/dL (NEGATIVE) 02/06/20 22:21 Urine Glucose (UA) NEGATIVE mg/dL (NEGATIVE) 02/06/20 22:21 Urine Ketones NEGATIVE mg/dL (NEGATIVE) 02/06/20 22:21 Urine Blood NEGATIVE (NEGATIVE) 02/06/20 22:21 Urine Nitrite NEGATIVE (NEGATIVE) 02/01/20 00:54 Urine Nitrite (Reflex) NEGATIVE (NEGATIVE) 02/06/20 22:21 Urine Bilirubin NEGATIVE (NEGATIVE) 02/06/20 22:21 Urine Urobilinogen NEGATIVE mg/dL (<2.0) 02/06/20 22:21 Ur Leukocyte Esterase NEGATIVE (NEGATIVE) 02/01/20 00:54 Leukocyte Esterase Rfl NEGATIVE (NEGATIVE) 02/06/20 22:21 Urine WBC (Auto) 1 /HPF 02/01/20 00:54 Urine RBC (Auto) 0 /HPF 02/06/20 22:21 U Hyaline Cast (Auto) 1 /LPF 02/06/20 22:21 Urine WBC (Reflex) < 1 /HPF 02/06/20 22:21 Squamous Epi Cells Auto <1 /HPF 02/06/20 22:21 Urine Mucus (Auto) RARE /LPF 02/06/20 22:21 Urine Ascorbic Acid NEGATIVE (NEGATIVE) 02/06/20 22:21 Urine Opiates Screen NEGATIVE 02/01/20 00:54 Urine Methadone Screen UNCONFIRMED POSITIVE 02/01/20 00:54 Ur Barbiturates Screen NEGATIVE 02/01/20 00:54 Ur Phencyclidine Scrn NEGATIVE 02/01/20 00:54 Ur Amphetamines Screen NEGATIVE 02/01/20 00:54 U Benzodiazepines Scrn NEGATIVE 02/01/20 00:54 Urine Cocaine Screen NEGATIVE 02/01/20 00:54 U Marijuana (THC) Screen NEGATIVE 02/01/20 00:54 Serum Alcohol < 10 mg/dL (NONE DETECTED) 01/31/20 23:45 COVID-19 Source NASOPHARYNGEAL 02/04/20 10:00 COVID-19 (NUZHAT) Not Detected (Not Detect) 02/04/20 10:00 Slides for Path Review Cancelled 02/10/20 04:29 Impressions: Ankle X-Ray 02/01/20 00:00 IMPRESSION: Interval reduction of the trimalleolar fracture and tibiotalar dislocation, which is now in near anatomic alignment. copyright 2011 [employer]- All Rights Reserved Chest X-Ray 02/01/20 00:00 IMPRESSION: 1. Blunting of left costophrenic angle may indicate a small left pleural effusion versus pleural parenchymal scarring. 2. Diffusely decreased bone mineral density. Fracture deformity of the right proximal humerus is incompletely evaluated with this technique, detailed on prior CT October 17, 2019. Stable left rib fracture deformities are again noted. Facial Bones CT 02/01/20 00:04 IMPRESSION: No acute bony injury is seen to the face. Head CT 02/01/20 00:04 IMPRESSION: No acute intracranial process is identified. Ankle X-Ray 02/01/20 00:06 IMPRESSION: Fracture dislocation as described. Cervical Spine CT 02/01/20 00:06 IMPRESSION: No acute findings. Tibia/Fibula X-Ray 02/01/20 00:06 IMPRESSION: No acute bony injury to the proximal leg. Ankle has been imaged separately. Ankle X-Ray 02/01/20 02:40 IMPRESSION: Mildly improved alignment. Humerus X-Ray 02/01/20 03:44 IMPRESSION: Fracture deformity of the right proximal humerus again demonstrated. Alignment of the glenohumeral joint is difficult to assess on this exam. No obvious acute fracture visualized. Ankle X-Ray 02/05/20 00:00 IMPRESSION: Interval anterior dislocation of the ankle joint. Ankle X-Ray 02/06/20 00:00 IMPRESSION: IMAGE(S) OBTAINED DURING PROCEDURE. Fluoroscopy 02/06/20 00:00 IMPRESSION: IMAGE(S) OBTAINED DURING PROCEDURE. Lower Extremity CT 02/09/20 00:00 IMPRESSION: Severe ankle fractures as above. The posterior half of the tibial plafond is deficient, rotated and displaced. Plan Plan of Treatment: Patient is going to group home today and that she is scheduled for surgery by Dr. Yuan on Sunday. Time Spent: Greater than 30 Minutes Stroke Is this a Stroke Patient?: No Acute Heart Failure Is this a Heart Failure Patient?: No
[2020-02-12] MEDS: FAMOTIDINE 20 MG TABLET PO SCH (15:04)
== END 2020-02-12 16:17 | DRG 492 ==
LOC: ER 23:21 → EH 02-01 04:53 → 4N 02-01 06:39
PROVIDERS: ADMIT Hospitalist; ATTEND Internal Medicine
PROC: 0QSH35Z Reposition Left Tibia with External Fixation Device, Percutaneous Approach (ICD-10-PCS; principal; 2020-02-06 11:15)
DX: S82.852A Displaced trimalleolar fracture of left lower leg, initial encounter for closed fracture (principal); G92 Toxic encephalopathy; L03.116 Cellulitis of left lower limb; J98.11 Atelectasis; F11.20 Opioid dependence, uncomplicated; T79.6XXA Traumatic ischemia of muscle, initial encounter; E86.0 Dehydration; R74.0 Nonspecific elevation of levels of transaminase and lactic acid dehydrogenase [LDH]; E11.65 Type 2 diabetes mellitus with hyperglycemia; J44.9 Chronic obstructive pulmonary disease, unspecified; I10 Essential (primary) hypertension; G89.29 Other chronic pain; W06.XXXA Fall from bed, initial encounter; Y92.59 Other trade areas as the place of occurrence of the external cause; R46.0 Very low level of personal hygiene; E80.6 Other disorders of bilirubin metabolism; Z91.81 History of falling; E83.42 Hypomagnesemia; S42.201G Unspecified fracture of upper end of right humerus, subsequent encounter for fracture with delayed healing; T40.2X5A Adverse effect of other opioids, initial encounter; R30.0 Dysuria; Z20.828 Contact with and (suspected) exposure to other viral communicable diseases
CPT/HCPCS: 01480; 36415; 70450; 70486; 71045; 72125; 80048; 80053; 80307; 81001; 82550; 82607; 82728; 82746; 82962; 83036; 83540; 83550; 83605; 83735; 85025; 85027; 85045; 85610; 87040; 87077; 87150; 87635; 93005; 93010; 94799; 96361; 96374; 96375; 99285; C1713; C9803; J0360; J0690; J1170; J1630; J1644; J1756; J1815; J1885; J2250; J2270; J2405; J2543; J2704; J2795; J3010; J3490; J7030; J7060; J7120; J7512; S0119

== ENCOUNTER 2020-02-17 08:30 | Day surgery (SDC) | payer MEDICARE ==
[~2020-02-17 08:30] MED LIST: CEFAZOLIN 2 GM/D5W RTU 2 GM/50 ML RTUPB IV ONE
[2020-02-17 09:03] LABS: APPEARANCE,URINE CLEAR; BILIRUBIN,URINE NEGATIVE (NEGATIVE); COLOR,URINE YELLOW; GLUCOSE, URINE NEGATIVE (NEGATIVE); KETONES,URINE NEGATIVE (NEGATIVE); LEUKOCYTE ESTERASE,URINE NEGATIVE (NEGATIVE); NITRITE,URINE NEGATIVE (NEGATIVE); PROTEIN,URINE NEGATIVE (NEGATIVE); URINE SPECIFIC GRAVITY 1.015; UROBILINOGEN,URINE NEGATIVE mg/dL (<2.0)
[2020-02-17 09:06] LABS: HEMATOCRIT 34.2 % (36.0-47.0); HEMOGLOBIN 11.5 g/dL (12.0-15.5); MEAN CORPUSCULAR HEMOGLOBIN 27.8 pg (27.0-33.4); MEAN CORPUSCULAR HGB CONC 33.6 g/dL (32.0-36.0); MEAN CORPUSCULAR VOLUME 83 fl (80-97); PLATELET COUNT 344 10^3/uL (150-450); RED BLOOD COUNT 4.13 10^6/uL (3.72-5.28); RED CELL DISTRIBUTION WIDTH 19.3 % (11.5-14.0)
--- NOTE | 2020-02-17 09:09 | RADIOLOGY REPORT (SQ) ---
EXAM DESCRIPTION: CHEST SINGLE VIEW IMAGES COMPLETED DATE/TIME: 02/17/2020 8:45 am REASON FOR STUDY: PRE OP COMPARISON: 02/01/2020 EXAM PARAMETERS: NUMBER OF VIEWS: One view. TECHNIQUE: Single frontal radiographic view of the chest acquired. RADIATION DOSE: NA LIMITATIONS: None. FINDINGS: LUNGS AND PLEURA: Emphysematous changes. Apical pleural thickening. Chronic blunting of the left costophrenic angle. MEDIASTINUM AND HILAR STRUCTURES: No masses. Contour normal. HEART AND VASCULAR STRUCTURES: Stable heart size. Normal vasculature. BONES: No acute findings. HARDWARE: None in the chest. OTHER: No other significant finding. IMPRESSION: NO ACUTE RADIOGRAPHIC FINDING IN THE CHEST. TECHNICAL DOCUMENTATION: JOB ID: [id number] 2010 [employer]- All Rights Reserved Reading location - IP/workstation name: [email or web address]
[2020-02-17 09:30] LABS: ANION GAP 10 (5-19); BLOOD UREA NITROGEN 34 mg/dL (7-20); CALCIUM 9.8 mg/dL (8.4-10.2); CARBON DIOXIDE 27 mmol/L (22-30); CHLORIDE 99 mmol/L (98-107); GLUCOSE 127 mg/dL (75-110); POTASSIUM 4.6 mmol/L (3.6-5.0)
[2020-02-17] MEDS ORDERED: FENTANYL CITRATE INJ/PF 250 MCG/5 ML AMPULE ONE (11:23)
[2020-02-17] MEDS ORDERED: BUPIVACAINE HCL 0.5 % INJ/PF 30 ML SDV ONE (11:23)
[2020-02-17] MEDS ORDERED: LIDOCAINE 1% INJ-PF (10 MG/ML) 30 ML SDV ONE (11:24)
[2020-02-17] MEDS ORDERED: ONDANSETRON HCL INJ/PF 4 MG/2 ML SDV ONE (11:24)
[2020-02-17] MEDS ORDERED: PROPOFOL INJ 200 MG/20 ML VIAL IV ONE (11:24)
[2020-02-17] MEDS ORDERED: KETOROLAC TROMETHAMINE 60 MG/2 ML SDV ONE (11:24)
[2020-02-17] MEDS ORDERED: MIDAZOLAM 2 MG/2 ML INJ ONE (11:24)
[2020-02-17] MEDS ORDERED: SUCCINYLCHOLINE CHLORIDE INJ 200 MG/10 ML VIAL ONE (11:46)
[2020-02-17] MEDS ORDERED: KETAMINE HCL INJ 500 MG/10 ML VIAL ONE (12:10)
--- NOTE | 2020-02-17 12:25 | EKG REPORT ---
SEVERITY:- OTHERWISE NORMAL ECG - SINUS RHYTHM ATRIAL PREMATURE COMPLEX : Confirmed by: Richard Palacios MD 17-Feb-2020 12:24:18
[2020-02-17] MEDS ORDERED: EPHEDRINE SULFATE INJ 50 MG/1 ML AMPULE ONE (12:32)
[2020-02-17] MEDS ORDERED: ONDANSETRON HCL INJ/PF 4 MG/2 ML SDV IV PRN (12:53)
[2020-02-17] MEDS ORDERED: DIPHENHYDRAMINE HCL 50 MG/ML VIAL IV PRN (12:53)
[2020-02-17] MEDS ORDERED: PROMETHAZINE HCL INJ 25 MG/1 ML VIAL IV PRN ×2 (12:53)
[2020-02-17] MEDS ORDERED: FENTANYL CITRATE INJ/PF 100 MCG/2 ML AMPUL IV PRN ×3 (12:53)
[2020-02-17] MEDS ORDERED: MEPERIDINE HCL/PF INJ 25 MG/1 ML DISP.SYRIN IV PRN (12:53)
[2020-02-17] MEDS ORDERED: OXYCODONE-ACETAMINOPHEN 5-325 MG TABLET PO PRN ×2 (12:53)
[2020-02-17] MEDS ORDERED: VANCOMYCIN HCL INJ 1000 MG VIAL ONE (13:32)
[2020-02-17] MEDS ORDERED: TRAMADOL HCL 50 MG TABLET PO PRN (14:52)
[2020-02-17] MEDS ORDERED: ZOLPIDEM TARTRATE 5 MG TABLET PO PRN (14:52)
[2020-02-17] MEDS ORDERED: DEXAMETHASONE SOD PHOS INJ 10 MG/1 ML VIAL IV ONE (14:52)
[2020-02-17] MEDS ORDERED: MORPHINE SULFATE 10 MG/ML INJ IV PRN ×2 (14:52)
[2020-02-17] MEDS ORDERED: DOCUSATE SODIUM 100 MG CAPSULE PO PRN (14:52)
[2020-02-17] MEDS ORDERED: ONDANSETRON 4 MG TAB.RAPDIS PO PRN (14:52)
[2020-02-17] MEDS ORDERED: TRANEXAMIC ACID INJ/PF 1,000 MG/10 ML SDV IV ONE (14:52)
[2020-02-17] MEDS ORDERED: DIPHENHYDRAMINE HCL 25 MG CAPSULE PO PRN (14:52)
[2020-02-17] MEDS ORDERED: PANTOPRAZOLE SODIUM 20 MG TABLET.DR PO ONE (14:52)
[2020-02-17] MEDS ORDERED: OXYCODONE HCL IR 5 MG TABLET PO PRN ×4 (14:52)
[2020-02-17] MEDS ORDERED: NORMAL SALINE 1000 ML 1,000 ML IV PRN (14:52)
[2020-02-17] MEDS ORDERED: ACETAMINOPHEN 325 MG TABLET PO SCH (15:00)
[2020-02-17] MEDS: MORPHINE SULFATE 10 MG/ML INJ IV PRN ×3 (15:05→15:15)
[2020-02-17] MEDS ORDERED: MORPHINE SULFATE 10 MG/ML INJ ONE (15:05)
[2020-02-17] MEDS ORDERED: TRANEXAMIC ACID INJ/PF 1,000 MG/10 ML SDV ONE (15:06)
--- NOTE | 2020-02-17 15:14 | RADIOLOGY REPORT (SQ) ---
EXAM DESCRIPTION: ANKLE LEFT COMPLETE; NO CHG FLUORO IMAGES COMPLETED DATE/TIME: 02/17/2020 2:57 pm REASON FOR STUDY: ORIF LEFT ANKLE ASSISTED WITH FLUORO IN OR S82.852A DISPLACED TRIMALLEOLAR FRACTU RE OF LEFT LOWER LEG, Z79.01 [facility] (CURRENT) USE OF ANTICOAGULANTS COMPARISON: None. FLUOROSCOPY TIME: 1.8 minutes 10 images saved to PACS. TECHNIQUE: Intra-operative images acquired during surgical procedure to evaluate progress. NUMBER OF IMAGES: 10 LIMITATIONS: None. FINDINGS: Intraoperative fluoroscopic images obtained to evaluate progress. Evidence of distal tib- fib plate and screw fixation hardware. Please see operative report for detailed description. IMPRESSION: IMAGE(S) OBTAINED DURING PROCEDURE. COMMENT: Quality ID [id number]: Final reports for procedures using fluoroscopy that document radiation exp osure indices, or exposure time and number of fluorographic images (if radiation exposure indices are not available) Please consult full operative report of the attending physician for description of the procedure. TECHNICAL DOCUMENTATION: JOB ID: [id number] 2010 [employer]- All Rights Reserved Reading location - IP/workstation name: [email or web address]
--- NOTE | 2020-02-17 15:14 | RADIOLOGY REPORT (SQ) ---
EXAM DESCRIPTION: ANKLE LEFT COMPLETE; NO CHG FLUORO IMAGES COMPLETED DATE/TIME: 02/17/2020 2:57 pm REASON FOR STUDY: ORIF LEFT ANKLE ASSISTED WITH FLUORO IN OR S82.852A DISPLACED TRIMALLEOLAR FRACTU RE OF LEFT LOWER LEG, Z79.01 [facility] (CURRENT) USE OF ANTICOAGULANTS COMPARISON: None. FLUOROSCOPY TIME: 1.8 minutes 10 images saved to PACS. TECHNIQUE: Intra-operative images acquired during surgical procedure to evaluate progress. NUMBER OF IMAGES: 10 LIMITATIONS: None. FINDINGS: Intraoperative fluoroscopic images obtained to evaluate progress. Evidence of distal tib- fib plate and screw fixation hardware. Please see operative report for detailed description. IMPRESSION: IMAGE(S) OBTAINED DURING PROCEDURE. COMMENT: Quality ID [id number]: Final reports for procedures using fluoroscopy that document radiation exp osure indices, or exposure time and number of fluorographic images (if radiation exposure indices are not available) Please consult full operative report of the attending physician for description of the procedure. TECHNICAL DOCUMENTATION: JOB ID: [id number] 2010 [employer]- All Rights Reserved Reading location - IP/workstation name: [email or web address]
[2020-02-17] MEDS ORDERED: FENTANYL CITRATE INJ/PF 100 MCG/2 ML AMPUL ONE (15:36)
[2020-02-17] MEDS ORDERED: OXYCODONE HCL IR 5 MG TABLET ONE (15:56)
--- NOTE | 2020-02-17 15:57 | RADIOLOGY REPORT (SQ) ---
EXAM DESCRIPTION: ANKLE LEFT COMPLETE IMAGES COMPLETED DATE/TIME: 02/17/2020 3:24 pm REASON FOR STUDY: Post op S82.852A DISPLACED TRIMALLEOLAR FRACTURE OF LEFT LOWER LEG, Z79.01 [facility] (CURRENT) USE OF ANTICOAGULANTS COMPARISON: None. NUMBER OF VIEWS: Three views. TECHNIQUE: AP, lateral, and oblique radiographic images acquired of the left ankle. LIMITATIONS: Overlying cast material. FINDINGS: Trimalleolar fracture status post plate and screw fixation of posterior and lateral compon ents. No unexpected findings. IMPRESSION: Satisfactory postop trimalleolar fracture. TECHNICAL DOCUMENTATION: JOB ID: [id number] 2010 [employer]- All Rights Reserved Reading location - IP/workstation name: [email or web address]
[2020-02-17 17:17] VITALS: BP 157/71
[2020-02-17] MEDS ORDERED: CEFAZOLIN 2 GM/D5W RTU 2 GM/50 ML RTUPB IV SCH (18:00)
[2020-02-17] MEDS ORDERED: CEFAZOLIN SODIUM 2 GM in DEXTROSE 5%-WATER 100 ML IV SCH (18:00)
[2020-02-17] MEDS ORDERED: GABAPENTIN 100 MG CAPSULE PO SCH (22:00)
[2020-02-18] MEDS ORDERED: ASPIRIN 325 MG TABLET PO SCH (10:00)
[2020-02-18] MEDS ORDERED: POLYETHYLENE GLYCOL 3350 POWDER 17 GM/1 PACKET PO SCH (10:00)
--- NOTE | 2020-02-19 07:20 | Discharge Summary ---
Discharge Summary (SDC) - Discharge Final Diagnosis: Left ankle trimalleolar fracture. Date of Surgery: 02/19/20 Condition: Stable Forms: ASU Anesthesia D/C Instruction, Discharge POC-Surgical Service Treatment or Instructions: KEEP LEFT FOOT CLEAN, DRY AND INTACT PARTICIPATE IN PHYSICAL THERAPY TAKE MEDICATIONS ORDERED NORMAL DIET WATCH FOR SIGNS OF INFECTION: FEVER OVER 101, REDNESS, FOUL SMELLING DRAINAGE Referrals: BAILEY MEDINA PA [Primary Care Provider] - RADHA LORENZO JR, DO [ACTIVE PROVISIONAL STAFF] - Discharge Diet: As Tolerated Respiratory Treatments at Home: Deep Breathing/Coughing Discharge Activity: Activity As Tolerated, No Lifting Over 10 Pounds, No Lifting/Push/Pulling, Slowly Increase Activity Home Care Assistance: None Needed Activities Provided by Home Health Agency:  Report the Following to Your Physician Immediately: Shortness of Breath, Fever over 101 Degrees, Unusual Bleeding, Swelling, Drainage-Foul Smelling
--- NOTE | 2020-02-19 13:20 | Operative Report ---
Operative Report DATE OF SURGERY: 02/17/20 PREOPERATIVE DIAGNOSIS: Left trimalleolar ankle fracture POSTOPERATIVE DIAGNOSIS: Left trimalleolar ankle fracture OPERATION: Left ankle open reduction internal fixation, removal of external fixator SURGEON: RADHA LORENZO JR ANESTHESIA: GA COMPLICATIONS: None ESTIMATED BLOOD LOSS: 10 cc PROCEDURE: The patient underwent prior closed reduction in emergency department followed by subsequent dislocation, placement into an external fixator approximately 10 days ago, and is now with an adequate wrinkle sign for definitive surgery. Even with our overall delay for allowance of appropriate soft tissue window, she does have fragile skin that is of relatively low quality given her ongoing long-term prednisone use. There is an ulcer anterior lateral to the fibula as well as some excoriations on the medial malleolus. The approach for the dorsolateral ankle to address the lateral malleolus and posterior malleolus appeared to be healthy enough to proceed with this approach. Of note there was approximately a 3 x 3 cm pressure ulcer centered over the most dorsal aspect of the heel. This had serous fluid without signs of infection. The patient was brought to the operating suite and placed under general anesthesia. There were given 2 g of Ancef prior to surgery. They were laid prone on the operating table after general anesthesia was provided. Portion of the external pacer was removed in order set adequately prepped the leg. The left lower extremities and prepped and draped sterile sterile fashion. Appropriate timeout was performed followed by inflation of the tourniquet to 250 millimeters of mercury. The posterior lateral approach to the ankle was marked followed by inclusion with careful dissection through the skin. Any potential bleeders were cauterized. The fascia was encountered and the peroneal tendons were retracted laterally. The neurovascular bundle of the tibial nerve and vessels was more lateral than normally encountered in line in between the FHL and peroneal tendons. We carefully dissected these out and used a Roland drain to gently retract them medially with FHL. We proceeded to dissect deeper until the posterior malleolus was encountered and at this point were able to free a portion of the posterior malleolus in order to try to reduce the plafond. After gaining adequate reduction and cleaning in the fracture site on the dorsal surface, a T plate was chosen and held in place with a ball spike version maintained reduction with the plate in place. We then proceeded to drill and placed the screws through the T plate utilizing fluoroscopy to ensure appropriate screw position, fracture reduction, and avoid penetrating the joint. After adequate reconstruction of the tibial plafond we then turned our attention to the fibula. The peroneal tendons were retracted medially to allow for visualization of the dorsal aspect of the fibula. Some callus formation was already present and overall the length of the fracture appeared appropriate. We selected an 8 hole plate placed at just proximal to the distal aspect of the fibula to avoid peroneal irritation. After adequate position on fluoroscopy we proceeded to place screws posterior to anterior. A combination of locking and nonlocking screws were inserted and again tested with fluoroscopy. The length and reduction fibula appear appropriate and the ankle was then taken through both static and alive stress exams to evaluate for syndesmotic injury with widening at the incisura. We do not appreciate this and actually on these images it appears that the medial malleolus was relatively stable. The medial malleolus was initially severely comminuted but appears to be healing and was not experiencing any appreciable motion on stress view. Given the continued poor skin envelope on the medial aspect, the decision was made to proceed without addressing the medial malleolus surgically. The posterior wound was copiously irrigated was dilute Betadine solution. Given her risk factors we decided to place a gram of vancomycin powder into the wound. The skin was then closed with inverted 2-0 Monocryl in an interrupted fashion. The tourniquet was deflated the superficial skin was closed with 3-0 nylon in a trauma stitch pattern. The wound was injected with local anesthetic cocktail. The remaining pins from the external fixator were removed. Pin sites were copiously irrigated with dilute Betadine solution. Sterile dressing was then placed followed by a well-padded posterior U-splint with extra padding at the heel.
== END 2020-02-17 17:10 ==
LOC: OROUT 08:30
PROVIDERS: ATTEND Orthopaedic Surgery
DX: S82.852A Displaced trimalleolar fracture of left lower leg, initial encounter for closed fracture (principal); W01.0XXA Fall on same level from slipping, tripping and stumbling without subsequent striking against object, initial encounter; Z79.01 Long term (current) use of anticoagulants; I10 Essential (primary) hypertension; J44.9 Chronic obstructive pulmonary disease, unspecified; E11.9 Type 2 diabetes mellitus without complications; F17.210 Nicotine dependence, cigarettes, uncomplicated; G89.29 Other chronic pain; K51.90 Ulcerative colitis, unspecified, without complications; Z79.84 Long term (current) use of oral hypoglycemic drugs; Z79.899 Other long term (current) drug therapy; F11.10 Opioid abuse, uncomplicated
CPT/HCPCS: 36415; 85027; 80048; 81001; 73610; 71045; 93005; 93010; 01480; 27822; 20694; J2250; J3490 ×4; J1885; J3010; J2270; J0330; J2405; J2704; J3370; A9270; J0690; 83036; 87070; J7060